=== PATIENT | male | born 1955 | race Caucasian/White ===

== ENCOUNTER → 2017-09-01 11:23 | Outpatient (CLI) | payer BC, SELFPAY ==
--- NOTE | 2017-09-01 11:29 | RAD_ITS ---
STUDY: X-RAY - PELVIS AND BILATERAL HIPS REASON FOR EXAM: Male, 61 years old. BIRADS pain worse on the left side. TECHNIQUE: Radiological exam, hip, bilateral, with pelvis when performed; 3-4 views COMPARISON: None. FINDINGS: There is a non-specific bowel gas pattern. Normal visualized soft tissue structures. Normal bilateral iliac wings, sacroiliac joints and visualized sacrum. Normal bilateral superior and inferior pubic rami. There is narrowing with sclerosis of the pubic symphysis. Normal bilateral ischial tuberosities. Normal visualized right femoral head. There is osteoarthritic spur formation of the right acetabular rim. There is moderate articular joint space narrowing of the right hip. Normal visualized left femoral head. Normal left acetabulum. There is severe articular joint space narrowing of the left hip. I suspect bilateral femoral acetabular impingement. A transitional vertebra is seen at the L5-S1 level. RAD/Hips B/L min 2 views w/ Pelvis IMPRESSION: Degenerative changes of both hip joints worse on the left side. I suspect bilateral femoral acetabular impingement. Electronically Signed: Sami Bess MD at 13:23 EST Tel [phone], Service support ,
== END ==
PROVIDERS: Family Provider Family Medicine; PCP Family Medicine; Visit Provider Family Medicine
DX: M25.551 Pain in right hip (principal); M25.552 Pain in left hip
CPT/HCPCS: 73521

== ENCOUNTER → 2017-11-02 17:57 | Outpatient (CLI) | payer BC, SELFPAY ==
[2017-11-02 20:25] LABS: Neisserai gonorrhoeae by PCR Positive (Negative); Probe Check PASS
[2017-11-03 11:11] LABS: Chlamydia Trachomatis by PCR POSITIVE (Negative)
== END ==
PROVIDERS: Visit Provider Family Medicine
DX: N39.0 Urinary tract infection, site not specified (principal)
CPT/HCPCS: 87086; 87491; 87591

== ENCOUNTER → 2018-03-08 12:14 | Outpatient (CLI) | payer OTHER, SELFPAY ==
[2018-03-08 14:18] LABS: Absolute Neutrophil Count 5.7 X10^3/uL (2.0-7.7); Basophil# 0.04 X10^3/uL; Basophil% 0.5 % (0-1); Eosinophil# 0.17 X10^3/uL; Hematocrit 44.6 % (40-54); Hemoglobin 14.8 g/dl (13.0-16.5); Mean Corp Hgb Conc 33.2 g/gl (32-36); Mean Corpuscular Hgb 31.6 pg (27.0-32.0); Mean Corpuscular Volume 95.3 fL (80-94); Mean Platelet Vol. 9.4 fl (6.2-12.0); Monocyte# 0.86 X10^3/uL; Monocyte% 10.2 % (0-10); Neutrophil # 5.71 X10^3/uL (2.7-7.7); Neutrophil % 68.1 % (47-70); POSITIVE COUNT NO; POSITIVE DIFFERENTIAL NO; POSITIVE MORPHOLOGY NO; Platelet Count 376 K/mm3 (150-450); RBC Distribution Width CV 13.1 % (11.6-14.6); RBC Distribution Width SD 45.3 fl (35.1-43.9); Red Blood Count 4.68 M/mm3 (4.6-6.2); White Blood Count 8.4 K/mm3 (4.4-11.0)
[2018-03-08 14:35] LABS: AST(SGOT) 23 U/L (15-37); Alanine Aminotransfer ALT/SGPT 28 U/L (16-61); Albumin, Serum 3.6 g/dL (3.2-5.0); Alkaline Phosphatase 72 U/L (45-117); Bilirubin, Direct 0.25 mg/dL (0.00-0.30); Globulin 4.3 g/dL (2.2-4.2); Protein, Total 7.9 g/dL (6.4-8.2)
[2018-03-18 16:07] LABS: QNTFERON TB Ag Minus Nil Value < 0 IU/mL (.); QNTFERON TB Ag Value 0.04 IU/mL (.); QNTFERON TB Mitogen Value > 10.00 IU/mL (.); QNTFERON TB Nil Value 0.07 IU/mL (.)
[2018-03-20 11:17] LABS: QNTIFERON TB Gold Negative (Negative)
== END ==
PROVIDERS: Family Provider Family Medicine; PCP Family Medicine; Visit Provider Dermatology
DX: L85.3 Xerosis cutis (principal); L40.9 Psoriasis, unspecified; Z79.899 Other long term (current) drug therapy
CPT/HCPCS: 36415; 80076; 85025; 86480

== ENCOUNTER → 2018-05-22 16:04 | Outpatient (CLI) | payer OTHER, SELFPAY ==
[2018-05-22 18:21] LABS: ALB/GLOB Ratio 0.8 RATIO (0.9-2.4); AST(SGOT) 22 U/L (15-37); Alanine Aminotransfer ALT/SGPT 27 U/L (16-61); Albumin, Serum 3.6 g/dL (3.2-5.0); Alkaline Phosphatase 82 U/L (45-117); Anion Gap 8 (5-15); BUN 7 mg/dL (7-18); BUN/Creat Ratio 7.3 RATIO (10-20); Calcium,Total 8.6 mg/dL (8.5-10.1); Chloride 93 mmol/L (98-107); Creatinine, Serum 0.96 mg/dL (0.70-1.30); EST Glomerular Filtration Rate 84 mL/min (>60); Est Glom Filt Rate - Afr Amer 101 mL/min (>60); Globulin 4.4 g/dL (2.2-4.2); Glucose 88 mg/dL (74-106); PSA,Total - Annual Screen 2.17 ng/mL (0.00-4.00); Potassium 4.6 mmol/L (3.5-5.1); Sodium Level 128 mmol/L (136-145)
== END ==
PROVIDERS: Nurse Practitioner Family; Family Provider Family Medicine; PCP Family Medicine; Visit Provider Family Medicine
DX: Z00.00 Encounter for general adult medical examination without abnormal findings (principal); E03.9 Hypothyroidism, unspecified
CPT/HCPCS: 36415; 80053; 84153; 84443; G0103

== ENCOUNTER 2018-08-30 06:56 | Inpatient (IN) | payer OTHER, MEDICARE, SELFPAY ==
--- NOTE | 2018-08-18 17:12 | PCM.HP.BLA ---
History and Physical DATE OF SURGERY: 08/30/2018 SCHEDULED PROCEDURE: HISTORY OF PRESENT ILLNESS: This is a 62-year-old male who is been having ongoing pain for the past 6 months but his left hip. Patient states his pain has been sharp. He does have start up pain. He has increased pain walking, going up and down stairs, and sitting for extended periods time. He states he has difficult time with activities of daily living including getting dressed, doing housework, shopping. Pain does wake him at night. Patient does complain of left groin pain as well as into the lateral hip. Patient has been using [id number] Tylenol as well as nabumetone. He has also been on tramadol with temporary relief. Patient has tried rest, ice, elevation with no significant relief in symptoms. He has tried home exercises with minimal relief. Patient denies previous surgery on the left hip. Patient has had previous bilateral knee arthroscopies in the past. After failing conservative measures of discussing all treatment options with Dr. Remigio Castillo, the patient does wish to proceed with a left total hip arthroplasty. We are obtaining surgical clearance from patient's primary care physician. Patient currently denies any chest pain, shortness of breath, fevers chills, or recent infections. REVIEW OF SYSTEMS: ROS: Const: Denies change in appetite, fever,or weight change. CV: Denies chest pain, heart murmur and irregular heartbeat. Resp: Denies cough, pneumonia, SOB, tuberculosis and wheezing. GI: Denies constipation, diarrhea, difficulty swallowing, heartburn, nausea, bloody stools and vomiting. : Urinary: denies incontinence. Musculo: Reports leg swelling, limp and trouble walking, but denies weakness. Skin: Reports tattoo, but denies Raynaud's and history of shingles. Neuro: Reports numbness/tingling but denies ambulatory dysfunction, dizziness and tremor. Psych: Denies anxiety, insomnia and stress. Emanuel/Lymph: Denies anemia, bleeding/bruising tendency and past transfusion. Reviewed, no changes. PAST MEDICAL HISTORY: Advance Care Plan: Other Directive, LIVING WILL Effective Date: 09/26/2017 PMH: Medical Problems: Arthritis, Psoriasis Accidents: None Surgical Hx: Gallbladder - (1995) RODRIGUEZ Knee Arthroscopy - (1991) Anesthesia Complications: None Assistive Devices: None Reviewed, no changes. 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 Personal Habits: Cigarette Use: Former.Alcohol: Occasionally.Drug Use: Denies Use.Enjoy Exercising: Exercises 1-3 X/Week. Reviewed, no changes. VITALS: Ht: 77.5 Wt: 226lb 4oz Wt k.627 BMI: 26.5 BP: 142/86 Pulse: 76 Resp: 18 T: 97.1 T: 36.2C ALLERGIES: No Known Drug Allergy MEDICATIONS: Tramadol HCL 50 mg 1-2 by mouth every 6 hours as needed pain, Nabumetone 750 mg 1 by mouth twice a day PRE-OP EXAM: General appearance:NORMAL Other: Eyes: Conjunctivae and lids: NORMAL Pupils: ERR Ears, Nose, Mouth, and Throat: NORMAL Other: Inspection of lips, teeth and gums: NORMAL Other: Neck: Examination of neck: no masses noted. Respiratory: Assessment of respiratory effort: NORMAL Other: Auscultation of lungs: clear to auscultation no wheezes, rhonchi or rales. Cardiovascular: Auscultation of heart: regular rate and rhythm, no murmurs, gallops or rubs. Exam of carotid arteries: NORMAL Other: Gastrointestinal: Exam of abdomen: soft, nontender, nondistended bowel sounds present. PHYSICAL EXAMINATION: Patient does walk with an antalgic gait. Patient does complain of left groin pain with range of motion. Left hip range of motion: Flexion 100, internal rotation 5, external rotation 20. Sensation intact to light touch. Neurovascularly intact. IMAGING STUDIES: X-rays of the left hip were obtained which does reveal joint space narrowing, subchondral sclerosis, osteophyte formation consistent with severe osteoarthritis. Right hip also reveals joint space narrowing with subchondral sclerosis and osteophyte formation consistent with severe osteoarthritis and associated acetabular rim fracture. IMPRESSION: 1. Left hip severe osteoarthritis 2. Right hip severe osteoarthritis 3. Psoriasis PLAN: Dr. Remigio Castillo did discuss and review with the patient all treatment options including surgical versus nonsurgical options. Patient does wish to proceed with the above-stated procedure. Potential risks, benefits, and complications of the procedure were discussed in detail including but not limited to , infection, nerve and blood vessel damage, persistent pain, numbness, tingling, paresthesias, blood clot, pulmonary embolism, and requirement for possible further surgery. The patient expressed full understanding and has no further questions for the doctor. Patient does agree to proceed with the above-stated procedure and has signed the surgery consent form. This dictation was created using voice recognition software. Phonetic and/or grammatical errors may exist.. ___ I have re-examined the patient. There are no clinical changes since date of exam. ___ See progress notes for changes. ___ Dictated on admission Date: Time: Signature:
--- NOTE | 2018-08-23 16:16 | EKG12_ITS ---
Test Reason : PRE-OP Blood Pressure : / mmHG Vent. Rate : 075 BPM Atrial Rate : 075 BPM P-R Int : 180 ms QRS Dur : 092 ms QT Int : 396 ms P-R-T Axes : 081 022 049 degrees QTc Int : 442 ms Normal sinus rhythm Normal ECG Confirmed by DENAE RAMOS, ELENI ([id number]), purchase request editor ARYA ALBARRAN ([id number]) on 08/28/2018 9:41:20 AM Referred By: Remigio Castillo Confirmed By:ELENI PHILIPPE MD
[2018-08-23 16:51] LABS: Absolute Lymphocyte Count 1.54 X10^3/ul (0.83-4.51); Basophil# 0.03 X10^3/uL; Basophil% 0.4 % (0-1); Eosinophil# 0.08 X10^3/uL; Eosinophils% 0.9 % (0-5); Hematocrit 46.6 % (40-54); Hemoglobin 15.9 g/dl (13.0-16.5); Lymphocyte # 1.54 X10^3/ul (4.0); Lymphocyte % 18.3 % (19-41); Mean Corp Hgb Conc 34.1 g/gl (32-36); Mean Corpuscular Hgb 31.4 pg (27.0-32.0); Mean Corpuscular Volume 92.1 fL (80-94); Mean Platelet Vol. 8.9 fl (6.2-12.0); Monocyte# 0.74 X10^3/uL; Monocyte% 8.8 % (0-10); Neutrophil % 71.1 % (47-70); Platelet Count 401 K/mm3 (150-450); RBC Distribution Width CV 12.9 % (11.6-14.6); Red Blood Count 5.06 M/mm3 (4.6-6.2); White Blood Count 8.4 K/mm3 (4.4-11.0)
[2018-08-23 16:56] LABS: POSITIVE COUNT NO; POSITIVE DIFFERENTIAL NO; POSITIVE MORPHOLOGY NO
[2018-08-23 17:14] LABS: Anion Gap 8 (5-15); BUN 4 mg/dL (7-18); Calcium,Total 8.7 mg/dL (8.5-10.1); Chloride 96 mmol/L (98-107); Creatinine, Serum 1.01 mg/dL (0.70-1.30); EST Glomerular Filtration Rate 79 mL/min (>60); Est Glom Filt Rate - Afr Amer 95 mL/min (>60); Glucose 102 mg/dL (74-106); Potassium 4.2 mmol/L (3.5-5.1); Sodium Level 128 mmol/L (136-145); Thyroid Stim Hormone (TSH) 8.96 uIU/mL (0.358-3.74)
[2018-08-29 16:00] LABS: Anion Gap 7 (5-15); BUN 4 mg/dL (7-18); BUN/Creat Ratio 4.2 RATIO (10-20); Calcium,Total 8.4 mg/dL (8.5-10.1); Chloride 98 mmol/L (98-107); Creatinine, Serum 0.95 mg/dL (0.70-1.30); EST Glomerular Filtration Rate 84 mL/min (>60); Est Glom Filt Rate - Afr Amer 102 mL/min (>60); Glucose 112 mg/dL (74-106); Potassium 4.3 mmol/L (3.5-5.1); Sodium Level 132 mmol/L (136-145)
[2018-08-30] VITALS (16 sets, daily range): BP systolic 91–126; BP diastolic 56–80; PULSE 67–95; RESP 16–18; TEMP 36.4–36.8; O2SAT 89–100; BMI 26.2; BMI 26.6
[2018-08-30] MEDS: Acetaminophen 500 MG Tablet 1000 MG PO ×3 (07:48→21:39)
[2018-08-30] MEDS: Celecoxib 200 MG Capsule 400 MG PO (07:48)
[2018-08-30] MEDS: oxyCODONE HCl Cr 10 MG Tablet PO (07:48)
[2018-08-30] MEDS: Lactated Ringers 1,000 ML 999 ML IV ×2 (07:52→12:40)
--- NOTE | 2018-08-30 08:59 | RAD_ITS ---
STUDY: X-RAY - LEFT HIP REASON FOR EXAM: Male, 62 years old. Postop left hip. TECHNIQUE: 2 views of the hip. COMPARISON: AP pelvis and 2 additional views of each hip September 01, 2017. Intraoperative fluoroscopic spot views of the left hip 1014 hours. FINDINGS: Degenerative changes again seen at the right hip and pubic symphysis. There is borderline degenerative narrowing of the inferior left sacroiliac joint. Again seen are changes of left total hip arthroplasty. Following resection of the femoral head and neck, a metal bipolar hip prosthesis was placed. The acetabular and femoral components appear well seated, and in anatomic alignment. A few gas lucencies in the overlying soft tissues are consistent with recent surgery. There is no demonstrated acute fracture Normal visualized superior and inferior pubic rami and ischial tuberosities. RAD/Hip Min 2 Views (Portable) IMPRESSION: Status post left total hip arthroplasty. Electronically Signed: Khanh Choe MD at 13:33 EST , Service support ,
--- NOTE | 2018-08-30 09:00 | RAD_ITS ---
STUDY: X-RAY - LEFT HIP REASON FOR EXAM: Male, 62 years old. Left anterior hip replacement. TECHNIQUE: 2 views of the hip. COMPARISON: None. FINDINGS: Intraoperative imaging provided for left anterior hip replacement. There is good alignment. RAD/Hip 1 view with Pelvis IMPRESSION: Intraoperative imaging provided for left hip replacement. There is good alignment. Electronically Signed: Sami Bess MD at 14:12 EST , Service support ,
[2018-08-30] MEDS: Cefazolin 2 GM in 0.9% Normal Saline 100 ML IV (09:20)
--- NOTE | 2018-08-30 10:36 | PCM.OPRPT ---
Report of Operation Date of Procedure: 08/30/18 Pre-Operative Diagnosis: Left hip primary osteoarthritis Post-Operative Diagnosis: Left hip primary osteoarthritis Surgery/Procedure Performed:: Left direct anterior total hip replacement Description of Surgical Findings:: sTable hip with equal leg lengths assembler latches and springs: Domonique Lentz Type of Anesthesia:: General Anesthesiologist: Michael Clinton Special Medications: 2 g Ancef, 1 g TXA at incision, 1 g TXA closure, 10 mg Decadron, joint cocktail (5 mg Duramorph, 30 mL of 0.5% Ropivicaine, 1000 units of epinephrine, 30 mg of Toradol), IV vancomycin. Estimated Blood Loss (mL): 200 Fluids Replaced: 1800 mL crystalloid Description of Procedure: Components used: 1. Accolade 2 [place] femoral stem size 9 127? 2. [place] trident 2 acetabular shell size 62 mm 3. [place] X3 polyethylene G 4. [place] Biolox delta 36mm, 0mm femoral head Brief history operative indications: 62 yo M who failed conservative measures for their hip osteoarthritis. X-rays were consistent with osteoarthritis including joint space narrowing, osteophyte formation and subchondral cysts. Total hip replacement was discussed with the patient with risks and benefits including but not limited to blood loss, DVTs, PEs, neurovascular damage, dislocation, general risks of anesthesia including loss of life. Patient demonstrated an understanding medical clearance is obtained the patient was consented for surgery. Procedure: On the date of procedure the patient's L hip was marked in the preoperative area. Patient was then taken back to the operating room where anesthesia assumed control of the C-spine and airway and administered anesthetic. Patient was transferred to the operating table and placed in the supine position. The hips were placed at the break of the bed and a sacral bump was placed. The L lower extremity was then prepped out in a sterile fashion using chlorhexidine while the surgeon scrubbed. The PA was vital in the positioning of the patient. Upon reentering the room the L lower extremity was draped in the standard orthopedic fashion and the incision was marked. A timeout was called and everyone agreed upon the side, the site, the procedure be performed, antibody given, and patient's identity. At this time incision was made through skin, subcutaneous tissue, and fat down to fascia. The fascia was then incised and the TFL was retracted laterally. A retractor was placed on the lateral border of the femoral neck. Attention was directed to the inferior portion of the approach and all crossing vessels were identified and appropriately coagulated. A retractor was then placed on the medial portion of the femoral neck. The anterior capsule was then cleared of all soft tissue and then H shaped capsulotomy was made. The retractors were then placed inside the capsule. The femoral neck was identified and a cleanup cut was made. At this time a power corkscrew was used to remove the femoral head. Attention was then turned toward the acetabulum where the soft tissues were appropriately retracted and the acetabulum was sequentially reamed to 62 mm. A 62 mm cup was then selected and impacted into place. Acetabular liner was impacted into place and locking mechanism was verified. The position of the acetabular cup was then verified under live fluoroscopy. Attention was then turned to the femur. Soft tissue releases on the medial and lateral femoral neck were appropriately done, the leg was externally rotated and lateralized. A Good retractor was placed medially and proximally to the greater trochanter this allowed appropriate visualization and exposure of the femoral canal. Rongeour was then used to remove excess lateral bone. A canal finder and entry broach were used to open the proximal canal. Once we verified we were down the femoral canal we subsequently broached up to a size 9 femur. The appropriate neck was placed in the previously selected head was trialed with a 0 mm neck. Traction was pulled and the hip was reduced with internal rotation. Once it was appropriately reduced and stability was checked. There was minimal shuck, equal leg lengths and appropriate stability with hyperextension and external rotation as well as with 90? flexion and internal rotation. Fluoroscopy was then also used to verify the position of the components and leg lengths using the contralateral side for comparison. The trial components were then dislocated the proximal femur was again exposed and the components were removed from the wound. The final components were verified and opened. The wound was copiously irrigated out with normal saline. The acetabulum was checked for any residual debris. The final components were placed and impacted. Traction and internal rotation were again used to reduce the hip. After adequate reduction the hip remained stable with appropriate leg lengths. The final components were once again checked with live fluoroscopy and were found to be satisfactory. The wound was then copiously irrigated with normal saline once more, and hemostasis was obtained. Closure was then done using #1 Vicryl runner to close the fascia. A 2-0 vicryl interuppted sutures were used to close the subcutaneous skin. A 3-0 Monocryl and Steri-Strips were used for final skin closure. A Silverlon dressing was placed. Patient was awakened by anesthesia and transferred to the [facility]. Patient was then transferred to the PACU for recovery. Postoperative plan: Patient will get 24 hours postop antibiotics. Patient will get in-house physical therapy and will be weight-bear as tolerated. Patient will follow up in office in 2 weeks for a wound check and x-rays. Grafts/Implants Used: Brandon Accolade 2, Trident 2 - Complications No intraoperative complications - Admit VTE Documentation VTE Present on Admission: No VTE Mechan Device Prophylaxis: SCD's, Thigh High OMID Hose VTE Pharm Prophylaxis ordered?: Yes
[2018-08-30] MEDS: Lactated Ringers 1,000 ML 125 ML IV ×2 (12:44→20:31)
[2018-08-30] MEDS: Scopolamine 1mg/72hr Patch 1 PATCH TD (12:44)
[2018-08-30] MEDS: Senna/Docusate Sodium 1 Tablet 2 TABLET PO ×2 (13:54→21:40)
[2018-08-30] MEDS: Famotidine 20 MG Tablet PO (13:54)
[2018-08-30] MEDS: Cefazolin 1 GM/50 ML BAG IV (17:04)
[2018-08-30] MEDS: Aspirin 81 MG TAB.CHEW PO (17:05)
[2018-08-30] MEDS: oxyCODONE 5 MG Tablet PO (20:45)
[2018-08-31] MEDS: Cefazolin 1 GM/50 ML BAG IV (00:51)
[2018-08-31 01:36] VITALS: BP 107/62; PULSE 66
[2018-08-31] MEDS: oxyCODONE 5 MG Tablet PO ×3 (01:42→10:49)
[2018-08-31 02:52] VITALS: BP 104/64; PULSE 79; RESP 16; TEMP 36.6; O2SAT 97
[2018-08-31] MEDS: Acetaminophen 500 MG Tablet 1000 MG PO ×2 (05:02→13:36)
[2018-08-31] MEDS: Levothyroxine 100 MCG Tablet 200 MCG PO (05:02)
[2018-08-31 06:38] LABS: Hematocrit 37.1 % (40-54); Hemoglobin 12.3 g/dl (13.0-16.5); Mean Corp Hgb Conc 33.2 g/gl (32-36); Mean Corpuscular Hgb 32.2 pg (27.0-32.0); Mean Corpuscular Volume 97.1 fL (80-94); Mean Platelet Vol. 8.8 fl (6.2-12.0); Platelet Count 278 K/mm3 (150-450); RBC Distribution Width CV 13.2 % (11.6-14.6); RBC Distribution Width SD 45.3 fl (35.1-43.9); Red Blood Count 3.82 M/mm3 (4.6-6.2); Scan Indicated on CBC? Y/N NO; White Blood Count 7.4 K/mm3 (4.4-11.0)
[2018-08-31 06:43] LABS: Anion Gap 6 (5-15); BUN 5 mg/dL (7-18); BUN/Creat Ratio 5.4 RATIO (10-20); Calcium,Total 7.8 mg/dL (8.5-10.1); Chloride 102 mmol/L (98-107); Creatinine, Serum 0.93 mg/dL (0.70-1.30); EST Glomerular Filtration Rate 87 mL/min (>60); Est Glom Filt Rate - Afr Amer 105 mL/min (>60); Estimated Creatinine Clearance 101.13 ml/min; Glucose 99 mg/dL (74-106); Potassium 4.3 mmol/L (3.5-5.1); Sodium Level 135 mmol/L (136-145)
[2018-08-31 07:36] VITALS: O2SAT 94
[2018-08-31 09:02] VITALS: BP 101/60; PULSE 77; RESP 20; TEMP 37.1; O2SAT 96
[2018-08-31 09:05] VITALS: PULSE 76
--- NOTE | 2018-08-31 09:08 | PN.ORTHO_ITS ---
Subjective: The patient was sitting in bedside chair upon examination. Patient denies any chest pain, shortness of breath, dizziness, lightheadedness, nausea or vomiting, or calf pain. Pain is controlled on medications. No adverse overnight events. Overall patient is doing very well. Patient does wish to go home today. Objective: Vital signs stable and afebrile. Patient is able to plantarflex and dorsiflex actively. Sensation is intact to light touch to saphenous, sural, superficial and deep peroneal, and tibial distribution. Dressing is clean dry and intact. Negative Homans bilaterally, negative signs and symptoms of DVT. - Physical Exam General: Alert, Oriented x3, Cooperative, No apparent distress Vital Signs Temp Pulse Resp BP Pulse Ox 98.8 F 77 20 H 101/60 96 08/31/18 09:02 08/31/18 09:02 08/31/18 09:02 08/31/18 09:02 08/31/18 09:02 Oxygen Flow Rate (L/min) 2 Oxygen Delivery Method Room Air Weight: 103 kg Body Mass Index (BMI) 26.6 Intake and Output for Last 24 Hours 08/29/18 08/30/18 08/31/18 23:59 23:59 23:59 Intake Total 3000 / 3000 1900 / 1900 Output Total 300 / 300 Balance 3000 / 3000 1600 / 1600 Laboratory Tests Past 24 Hrs 08/31/18 08/31/18 06:06 06:06 WBC 7.4 RBC 3.82 L Hgb 12.3 L Hct 37.1 L MCV 97.1 H MCH 32.2 H MCHC 33.2 RDW 13.2 RDW Differential 45.3 H Plt Count 278 MPV 8.8 Sodium 135 L Potassium 4.3 Chloride 102 Carbon Dioxide 27.0 Anion Gap 6 BUN 5 L Creatinine 0.93 Estim Creat Clear Calc 101.13 Est GFR (MDRD) Af Amer 105 Est GFR (MDRD) Non-Af 87 BUN/Creatinine Ratio 5.4 L Glucose 99 Calcium 7.8 L Medical Necessity - Tobacco Use Smoking Status: Current some day smoker Tobacco Use: Cigars Assessment/Plan 1. S/P left direct anterior total hip arthroplasty POD #1 2. Continue Pain Medications: Tylenol and OxyIR 3. DVT Prophylaxis: Aspirin 81 mg twice daily for for 4 weeks postoperatively 4. PT/OT: Weightbearing as tolerated 5. H & H: 12.3/37.1, asymptomatic 6. Encouraged Incentive Spirometry 7. Disposition: Orthopedically stable, plan will be for discharge home today. Prescriptions will be E scribed to [facility]. Patient will follow-up per postop instructions. Patient will get home health physical therapy 2 weeks postoperatively.
[2018-08-31] MEDS: Multivitamins,Therapeutic Tablet 1 TABLET PO (09:09)
[2018-08-31] MEDS: Meloxicam 7.5 MG Tablet PO (09:09)
[2018-08-31] MEDS: Famotidine 20 MG Tablet PO (09:09)
[2018-08-31] MEDS: Aspirin 81 MG TAB.CHEW PO (09:09)
[2018-08-31] MEDS: Senna/Docusate Sodium 1 Tablet 2 TABLET PO (09:09)
--- NOTE | 2018-08-31 09:14 | PCM.DC.THR ---
Discharge Diet: No Restrictions Discharge Activity: May Not Drive - while taking narcotic pain medications. May shower in (days): 1 - Turned dressing away from water Ice area for (Minutes): 20 - Every 1-2 hours while awake Weight Bearing Status: Weight bearing as tolerated Elevate: Operative Extremity Additional Activity Instructions:: Wear elastic stockings for 2 weeks. DO NOT use alcohol with narcotic pain medication. DO NOT make important decisions while taking narcotic medication. If you have problems with taking your medication (rash, itching, nausea, etc.) call the office at once. Call your doctor if your incision/area has: Increased Pain/ Swelling, Increased Redness, Foul Smelling Discharge Call your doctor if you observe: Fever of 101 or Higher Remove Dressing in (days):: 4 - Okay to remove dressing on September 04, 2018 Additional Instructions: Follow [facility] postop instructions Allergies/Adverse Reactions: Allergies codeine Adverse Reaction (Intermediate, Verified 08/21/18 12:57) Upset Stomach Medications to take at Discharge Levothyroxine Sodium [Synthroid] 200 mcg PO DAILY 03/10/16 Multivitamin [Multiple Vitamins] 1 each PO DAILY 08/21/18 Acetaminophen [Tylenol] 1,000 mg PO Q8 #90 tablet 08/31/18 Aspirin [Aspirin, Baby] 81 mg PO BIDCM #60 tab.chew 08/31/18 Famotidine [Pepcid] 20 mg PO DAILY #30 tablet 08/31/18 Meloxicam [Mobic] 7.5 mg PO BID #60 tablet 08/31/18 Oxycodone [Oxyir] 5 - 10 mg PO Q4H PRN PRN 4 Days #45 tablet 08/31/18 Senna/Docusate Sodium [Senokot-S] 2 tablet PO BID #20 tablet 08/31/18 The following prescriptions were given: Oxycodone [Oxyir] 5 - 10 mg PO Q4H PRN PRN 4 Days #45 tablet PRN Reason: Mod-Severe Pain (4-04/26) Acetaminophen [Tylenol] 1,000 mg PO Q8 #90 tablet Famotidine [Pepcid] 20 mg PO DAILY #30 tablet Aspirin [Aspirin, Baby] 81 mg PO BIDCM #60 tab.chew Meloxicam [Mobic] 7.5 mg PO BID #60 tablet Senna/Docusate Sodium [Senokot-S] 2 tablet PO BID #20 tablet Orders to be completed after discharge: Thyroid Stim Hormone (TSH) Time Frame: 08/21/18, Location: Laboratory Primary Care Physician: Hebert Whaley MD [Primary Care Provider] - Test Results: Test results from this visit will be discussed in further detail at your follow-up appointment, if applicable. Please Follow Up With: Abisai Barclay PA-C When: 09/13/18 @ 9:30 am
--- NOTE | 2018-08-31 10:25 | CASEMGMT ---
RN CM Face to Face with patient for initial transition planning/care coordination assessment. RN CM introduced self and role at [facility]. Patient sitting in chair, alert and oriented. Patient willing to participate in assessment and is able to answer all questions appropriately. Care providers, pharmacy, and demographics verified. Patient wishes to discharge home with [facility]. Patient has shower chair and raised toilet seat, but will need a walker. Patient agreeable to Das[facility] and script received for walker and sent to [facility] and arranged to be delivered to hospital prior to discharge. Referral sent to [facility] and they are able to accept the patient. Patient states he has no further needs or concerns at this time. CM to follow for discharge planning needs that may arise. Disposition Plan: Patient to discharge with [facility], family support, and follow-up plans in place. Melissa SOUZA, RN, CM
[2018-08-31 13:56] VITALS: BP 115/68; PULSE 89; RESP 16; TEMP 36.8; O2SAT 96
== END 2018-08-31 14:11 | disposition home health service (06) | DRG 470 ==
LOC: ACINP 07:25 → MS3 07:37
PROVIDERS: Admitting Provider Specialist; Family Provider Family Medicine; PCP Family Medicine; Referring Provider Specialist; Visit Provider Specialist
PROC: 0SRB04A Replacement of Left Hip Joint with Ceramic on Polyethylene Synthetic Substitute, Uncemented, Open Approach (ICD-10-PCS; CPT 27284; principal; 2018-08-30 08:35)
DX: M16.0 Bilateral primary osteoarthritis of hip (principal); L40.9 Psoriasis, unspecified
CPT/HCPCS: 36415; 73501; 73502; 76000; 80048; 84443; 85025; 85027; 87077; 87081; 93005; 94762; 97110; 97162; 97166; 97530; 97535; 99251; 99406; C1776; J7040; J7120; G0463; J2405

== ENCOUNTER → 2019-02-06 09:13 | Outpatient (CLI) | payer MEDICARE, OTHER, SELFPAY ==
[2018-08-30 13:17] VITALS: BMI 26.6
[2019-02-06 13:06] LABS: ALB/GLOB Ratio 0.8 RATIO (0.9-2.4); AST(SGOT) 83 U/L (15-37); Alanine Aminotransfer ALT/SGPT 121 U/L (16-61); Albumin, Serum 2.7 g/dL (3.2-5.0); Alkaline Phosphatase 111 U/L (45-117); Anion Gap 5 (5-15); BUN 5 mg/dL (7-18); BUN/Creat Ratio 5.9 RATIO (10-20); Calcium,Total 8.8 mg/dL (8.5-10.1); Chloride 102 mmol/L (98-107); Cholesterol 133 mg/dL (200); Creatinine, Serum 0.84 mg/dL (0.70-1.30); EST Glomerular Filtration Rate 97 mL/min (>60); Est Glom Filt Rate - Afr Amer 118 mL/min (>60); Globulin 3.6 g/dL (2.2-4.2); Glucose 77 mg/dL (74-106); High Density Lipoprotein 66 mg/dL; Potassium 4.5 mmol/L (3.5-5.1); Protein, Total 6.3 g/dL (6.4-8.2); Sodium Level 134 mmol/L (136-145); Thyroid Stim Hormone (TSH) 3.15 uIU/mL (0.358-3.74); Triglycerides 60 mg/dL; Very Low Density Lipoprotein 12 mg/dL (5-40)
[2019-02-06 13:31] LABS: Vitamin D,25 Hydroxy 23.7 ng/mL (29.95-100.01)
== END ==
PROVIDERS: Family Provider Family Medicine; PCP Family Medicine; Referring Provider Family Medicine; Visit Provider Family Medicine
DX: R53.83 Other fatigue (principal); E87.1 Hypo-osmolality and hyponatremia; E03.9 Hypothyroidism, unspecified; Z13.220 Encounter for screening for lipoid disorders
CPT/HCPCS: 36415; 80053; 80061; 82306; 84403; 84443

== ENCOUNTER → 2019-04-03 09:39 | Outpatient (CLI) | payer MEDICARE, OTHER, SELFPAY ==
[2018-08-30 13:17] VITALS: BMI 26.6
[2019-04-03 12:22] LABS: Erythrocyte Sedimentation Rate 4 mm/hr (0-20)
[2019-04-03 12:24] LABS: Absolute Lymphocyte Count 1.82 X10^3/uL (0.83-4.51); Absolute Neutrophil Count 3.3 X10^3/uL (2.0-7.7); Basophil# 0.06 X10^3/uL; Eosinophil# 0.27 X10^3/uL; Eosinophils% 4.3 % (0-5); Hematocrit 49.4 % (40-54); Lymphocyte # 1.82 X10^3/ul (4.0); Lymphocyte % 29.1 % (19-41); Mean Corp Hgb Conc 34.4 g/dL (32-36); Mean Corpuscular Hgb 34.1 pg (27.0-32.0); Mean Platelet Vol. 9.2 fl (6.2-12.0); Monocyte# 0.77 X10^3/uL; Monocyte% 12.3 % (0-10); NRBC Flagged by Analyzer 0 % (0-5); Neutrophil # 3.32 X10^3/uL (2.7-7.7); Platelet Count 332 K/mm3 (150-450); RBC Distribution Width CV 13.3 % (11.6-14.6); RBC Distribution Width SD 48.9 fl (35.1-43.9); Red Blood Count 4.99 M/mm3 (4.6-6.2); White Blood Count 6.3 K/mm3 (4.4-11.0)
[2019-04-03 12:47] LABS: Anion Gap 6 (5-15); BUN 4 mg/dL (7-18); BUN/Creat Ratio 4.2 RATIO (10-20); CRP < 2.90 mg/L (0.0-3.0); Calcium,Total 8.7 mg/dL (8.5-10.1); Chloride 100 mmol/L (98-107); Creatinine, Serum 0.95 mg/dL (0.70-1.30); EST Glomerular Filtration Rate 85 mL/min (>60); Est Glom Filt Rate - Afr Amer 103 mL/min (>60); Glucose 75 mg/dL (74-106); Potassium 3.9 mmol/L (3.5-5.1); Rheumatoid Factor < 10.0 IU/mL (<15); Sodium Level 136 mmol/L (136-145); Uric Acid 6.2 mg/dL (3.5-7.2)
[2019-04-04 15:53] LABS: ANTINUCLEAR ANTIBODIES DIRECT Negative (Negative)
== END ==
LOC: MFPLAB 09:39
PROVIDERS: Family Provider Family Medicine; PCP Family Medicine; Referring Provider Family Medicine; Visit Provider Orthopaedic Surgery
DX: M17.11 Unilateral primary osteoarthritis, right knee (principal)
CPT/HCPCS: 36415; 80048; 84550; 85025; 85652; 86038; 86140; 86431

== ENCOUNTER → 2019-12-05 10:43 | Outpatient (CLI) | payer MEDICARE, OTHER, SELFPAY ==
[2018-08-30 13:17] VITALS: BMI 26.6
[2019-12-05 13:03] LABS: ALB/GLOB Ratio 0.7 RATIO (0.9-2.4); AST(SGOT) 132 U/L (15-37); Alanine Aminotransfer ALT/SGPT 100 U/L (16-61); Albumin, Serum 3.2 g/dL (3.2-5.0); Alkaline Phosphatase 77 U/L (45-117); Anion Gap 9 (5-15); BUN 6 mg/dL (7-18); BUN/Creat Ratio 7.1 RATIO (10-20); Calcium,Total 8.6 mg/dL (8.5-10.1); Chloride 99 mmol/L (98-107); Creatinine, Serum 0.85 mg/dL (0.70-1.30); EST Glomerular Filtration Rate 96 mL/min (>60); Est Glom Filt Rate - Afr Amer 116 mL/min (>60); Globulin 4.3 g/dL (2.2-4.2); Glucose 88 mg/dL (74-106); Potassium 3.8 mmol/L (3.5-5.1); Protein, Total 7.5 g/dL (6.4-8.2); Sodium Level 135 mmol/L (136-145)
== END ==
PROVIDERS: PCP Family Medicine; Referring Provider Family Medicine; Visit Provider Family Medicine
DX: E03.9 Hypothyroidism, unspecified (principal); F10.10 Alcohol abuse, uncomplicated
CPT/HCPCS: 36415; 80053; 84443

== ENCOUNTER 2019-12-11 01:21 | Observation (INO) | payer MEDICARE, OTHER, SELFPAY ==
[2018-08-30 13:17] VITALS: BMI 26.6
[2019-12-11] VITALS (15 sets, daily range): BP systolic 118–141; BP diastolic 47–88; PULSE 12–95; RESP 15–62; TEMP 36.4–37.4; O2SAT 94–99; BMI 23.6; BMI 22.9
--- NOTE | 2019-12-11 01:33 | EKG12_ITS ---
Test Reason : DYSRHYTHMIA Blood Pressure : / mmHG Vent. Rate : 073 BPM Atrial Rate : 073 BPM P-R Int : 178 ms QRS Dur : 088 ms QT Int : 410 ms P-R-T Axes : 084 -05 057 degrees QTc Int : 451 ms Normal sinus rhythm Normal ECG Confirmed by TABBY RAMOS, LAURA ([id number]), film and video editor ARYA ALBARRAN ([id number]) on 12/13/2019 2:37:14 PM Referred By: BB Confirmed By:LAURA MCNAIR MD
--- NOTE | 2019-12-11 01:36 | ED.VIS.DYS ---
History of Present Illness Chief Complaint: Shortness of Breath Detail of Chief Complaint: SOB, syncope Informant: Patient Onset: Weeks - several Activity at onset: Exertion Timing: Continuous Quality: Dyspnea on exertion, Wheezing Current Severity: Mild Maximum Severity: Severe Worsened by: Exertion Relieved by: Rest Associated Symptoms: Cough - several days, mild, [employer]. Negative for: Chills, Ear pain, Fever, Rhinorrhea, Sore throat, Sweats Chest Pain: None Narrative: Patient states symptoms have been gradually worsening for the last couple weeks, started with feeling lightheaded and dyspnea with exertion. Progressed to standing up and passing out. He states this is happened numerous times. Sometimes he has near syncope and sits down, but he passes out from standing up fairly frequently in the last week. The last time occurred a couple hours ago. Afterwards he was very shaky and family convinced him to come to the emergency department, it is 1:30 AM. He denies any new symptoms now. Denies any chest discomfort, leg pain, swelling. He traveled here from [place] 7 or 8 days ago. States symptoms started while he was down there. He was visiting his significant other and had been there for couple weeks. He saw his PCP about the symptoms last week, his thyroid medicine was increased and no other new prescriptions, patient states some tests were run but no chest x-ray. He denies any fevers. While in [place], he was sent an injection of his psoriasis medication that he had missed a dose of, so his psoriasis had become worse. When he got home, the shot did not seem to help as much as it usually does, so he saw his veterinary technology instructor and had a booster shot of something, now his psoriasis is getting better. He does not know what the booster shot was but thinks it was something different. He was having all of the symptoms prior to that. He denies a history of DVT or PE. He denies being in contact with anybody he knows of infected with coronavirus/COVID, he presents during the national coronavirus emergency. His significant other was a teacher, but not working during the state shutdown there, and was basically at home so he was they are keeping her company. She was not ill. - Past Medical History (1) Psoriasis Status: Chronic (2) Hypothyroidism Status: Chronic Past Medical History - Allergies and Home Meds Allergies/Adverse Reactions: Allergies codeine Adverse Reaction (Intermediate, Verified 12/11/19 01:30) Upset Stomach Primary Care Physician: Hebert Whaley MD [Primary Care Provider] - 1-2 Days if not improving Lives: Alone Smoking Status: Never smoker Review of Systems General: Reports: Malaise. Denies: Chills, Fever, Sweats Eyes: Denies: Visual changes - bilaterally, Diplopia ENT: Denies: Bilateral ear pain, Rhinorrhea, Sore throat Cardiovascular: Reports: Heart racing - when dyspneic only. Denies: Chest pain, Palpitations Respiratory: Reports: Dyspnea, Cough, Dyspnea on exertion. Denies: Sputum, Orthopnea Gastrointestinal: Denies: Abdominal pain, Nausea, Vomiting, Diarrhea, Melena, Hematochezia Genitourinary: Denies: Dysuria, Hematuria, Frequency Musculoskeletal: Denies: Back pain, Swelling, Extremity Pain Skin: Denies: Rash, Wounds Neurological: Denies: Headache, Weakness, Numbness Physical Exam Vital Signs/Narrative: Vital Signs Temp Pulse Resp BP Pulse Ox 12/11/19 01:26 99.3 F H 85 15 133/85 H 97 Inital Vital Signs reviewed: Yes General: Well nourished, Well developed, No Acute Distress - conversive in full sentences Head: Normocephalic, Atraumatic Eyes: Perrl, EOMI ENT: Moist mucous membranes, No rhinorrhea Neck: Supple, Nontender, No lymphadenopathy, No JVD Cardiovascular: Regular rate, Regular rhythm, No murmurs. Negative for: Tachycardia Respiratory: No distress, Chest nontender, Wheezing - expiratory throughout. Negative for: Rales, Rhonchi Abdomen: Soft, Nontender, Nondistended, Normal bowel sounds Back: Nontender, Normal Inspection Extremities: Nontender, No edema. Negative for: Calf Tenderness Skin: Normal color, No rash, No Trauma Neurological: Alert, Oriented x3, Cranial nerves II-XII grossly intact, Normal Strength, Normal Sensation Psychological: Normal affect, Normal Mood Diagnostic/Tx/Re-eval Clinical Impression(s) from Imaging Studies Chest CTA 12/11/19 02:06 IMPRESSION: Evaluation for pulmonary embolism is limited by bolus timing. There is no pulmonary embolism within the main pulmonary artery. No pulmonary embolism within the right or left main pulmonary arteries. There is no hilar pulmonary embolism. No proximal segmental pulmonary embolism identified. Further evaluation of the segmental and subsegmental pulmonary arteries is limited. Emphysematous changes. Hepatic steatosis. Partially exophytic hyperdense structure involving the left kidney. Recommend CT or MRI renal mass protocol to evaluate for neoplastic process. Other findings as discussed above. Electronically Signed: Isma Hernandez, at 3:45 EDT Tel , Service support , Brain CT 12/11/19 06:02 IMPRESSION: Paranasal sinus disease. Chronic white matter changes. No acute territorial infarct or intracranial hemorrhage identified. If patient''s symptomology persists or there is continuing clinical concern MRI or follow-up CT scan can be performed. Slightly hyperdense right MCA. The left MCA is not well seen possibly due to slice selection. Patient recently obtained IV contrast material for CT angiogram approximately 3 hours prior to this exam. The hyperdensity may be related to residual contrast in the arterial system. However a hyperdense MCA representing a thrombosis cannot be totally excluded. If there is clinical concern recommend further evaluation with CT or MR angiogram./ Electronically Signed: Isma Hernandez, at 7:00 EDT Tel , Service support , ADDENDUM: 12/11/19 0714 IMPRESSION: Paranasal sinus disease. Chronic white matter changes. No acute territorial infarct or intracranial hemorrhage identified. If patient''s symptomology persists or there is continuing clinical concern MRI or follow-up CT scan can be performed. Slightly hyperdense right MCA. The left MCA is not well seen possibly due to slice selection. Patient recently obtained IV contrast material for CT angiogram approximately 3 hours prior to this exam. The hyperdensity may be related to residual contrast in the arterial system. However a hyperdense MCA representing a thrombosis cannot be totally excluded. If there is clinical concern recommend further evaluation with CT or MR angiogram./ N.B. : The above information has been verbally conveyed by Isma Hernandez to Eleno Crawford MD, on 12/11/2019 07:07:17 (ET). Electronically Signed: Isma Hernandez, at 7:00 EDT Tel , Service support , Laboratory Tests 12/11/19 12/11/19 12/11/19 Range/Units 01:40 01:40 01:40 WBC (4.4-11.0) K/mm3 RBC (4.6-6.2) M/mm3 Hgb (13.0-16.5) g/dL Hct (40-54) % MCV (80-94) fL MCH (27.0-32.0) pg MCHC (32-36) g/dL RDW Std Deviation (35.1-43.9) fl RDW Coeff of Keysha (11.6-14.6) % Plt Count (150-450) K/mm3 MPV (6.2-12.0) fl Immature Gran % (Auto) (0.0-0.9) % Neut % (Auto) (47-70) % Lymph % (Auto) (19-41) % Ballard % (Auto) (0-10) % Eos % (Auto) (0-5) % Baso % (Auto) (0-1) % Absolute Neuts (auto) (2.0-7.7) X10^3/uL Absolute Lymphs (auto) (0.83-4.51) X10^3/uL Nucleated RBC % (0-5) % D-Dimer Quant (PE/DVT) 1.85 H* (0.27-0.49) FEU/ug/m Sodium 133 L (136-145) mmol/L Potassium 3.7 (3.5-5.1) mmol/L Chloride 99 (98-107) mmol/L Carbon Dioxide 26.0 (21.0-32.0) mmol/L Anion Gap 8 (5-15) BUN 9 (7-18) mg/dL Creatinine 0.90 (0.70-1.30) mg/dL Estim Creat Clear Calc 104.38 ml/min Est GFR (MDRD) Af Amer 109 (>60) mL/min Est GFR (MDRD) Non-Af 90 (>60) mL/min BUN/Creatinine Ratio 10.0 (10-20) RATIO Glucose 92 (74-106) mg/dL Calcium 8.6 (8.5-10.1) mg/dL Troponin I < 0.015 (<0.045) ng/mL B-Natriuretic Peptide 14.2 (0-100) pg/mL 12/11/19 Range/Units 01:40 WBC 7.8 (4.4-11.0) K/mm3 RBC 4.26 L (4.6-6.2) M/mm3 Hgb 14.2 (13.0-16.5) g/dL Hct 40.4 (40-54) % MCV 94.8 H (80-94) fL MCH 33.3 H (27.0-32.0) pg MCHC 35.1 (32-36) g/dL RDW Std Deviation 44.3 H (35.1-43.9) fl RDW Coeff of Keysha 12.9 (11.6-14.6) % Plt Count 232 (150-450) K/mm3 MPV 8.8 (6.2-12.0) fl Immature Gran % (Auto) 0.300 (0.0-0.9) % Neut % (Auto) 76.6 H (47-70) % Lymph % (Auto) 14.4 L (19-41) % Ballard % (Auto) 7.9 (0-10) % Eos % (Auto) 0.4 (0-5) % Baso % (Auto) 0.4 (0-1) % Absolute Neuts (auto) 6.0 (2.0-7.7) X10^3/uL Absolute Lymphs (auto) 1.12 (0.83-4.51) X10^3/uL Nucleated RBC % 0 (0-5) % D-Dimer Quant (PE/DVT) (0.27-0.49) FEU/ug/m Sodium (136-145) mmol/L Potassium (3.5-5.1) mmol/L Chloride (98-107) mmol/L Carbon Dioxide (21.0-32.0) mmol/L Anion Gap (5-15) BUN (7-18) mg/dL Creatinine (0.70-1.30) mg/dL Estim Creat Clear Calc ml/min Est GFR (MDRD) Af Amer (>60) mL/min Est GFR (MDRD) Non-Af (>60) mL/min BUN/Creatinine Ratio (10-20) RATIO Glucose (74-106) mg/dL Calcium (8.5-10.1) mg/dL Troponin I (<0.045) ng/mL B-Natriuretic Peptide (0-100) pg/mL - Rhythm Strip Rhythm Strip: Sinus Rhythm Rate: 73 Ectopy: None - EKG Initial EKG Interpretation: Sinus Rhythm, No Acute Injury Pattern - normal EKG Prior: Unchanged Treatment - Dyspnea: Albuterol, Atrovent Repeat Evaluation: Improved - Medical Decision Making Patient is feeling better after a duo nebulizer treatment. He had adequate oxygen saturations prior to the treatment, as well as after. He felt a little anxious after the treatment but that improved with time. His work-up was unremarkable except for an elevated d-dimer, for which a CT angiography was performed, this was all determined prior to getting a chest x-ray so that was canceled. CT angiography did not show any pulmonary embolus, or airspace disease or interstitial infiltrates. Coronavirus is thought to be less likely etiology here. Patient presents overnight, now the [facility] laboratory is closed and I am not able to obtain permission for outpatient testing. Etiologies here include viral infections and reactive airway to unknown allergen. I am going to avoid steroids at this time. His symptoms suggest recurrent orthostatic syncope, I advised him to stay well-hydrated and follow-up with his doctor. I ordered orthostatic vital signs however they did not get done before the patient had a lot of IV fluid, they were negative. Given appropriate quarantine instructions until he is further evaluated. After being here for 3 hours and no vomiting, he suddenly vomited prior to discharge. He is otherwise okay. He was treated with Zofran prior to reevaluating him, then I had a discussion with him. He states he vomited after he got up and then he felt very dizzy and feels he has been unable to walk well. His cerebellar exam is unremarkable. In further discussion, he feels like things are spinning. I suggest that maybe this is all vertigo, and his self-describe symptoms of becoming lightheaded and passing out were falsely suggesting orthostatic mechanism. He states he is afraid of falling, lives alone, and requests to stay in the hospital because he is having some any issues with falling. CT was obtained, shows the findings as above. He does not have any MCA symptoms, given that the radiologist thought that this abnormality was due to the IV contrast that he had earlier from the CT angiography. We will discuss with hospitalist for inpatient observation. ED Disposition - Plan for ED Patient: Disposition: Acute Care Hospital [facility] Diagnosis: Reactive airway disease, Upper respiratory tract infection, Vertigo, Recurrent syncope Prescriptions: Albuterol Inhaler [Ventolin Hfa] 1 - 2 puff INHALATION Q4H PRN PRN #1 inhaler PRN Reason: Wheezing Transmission Status: Received by [employer] [id number] Referrals: Hebert Whaley MD [Primary Care Provider] - 1-2 Days if not improving
[2019-12-11] MEDS: Ipratropium/Albuterol Sulfate 3 ML AMPUL.NEB INHALATION ×3 (01:45→20:07)
[2019-12-11 01:47] LABS: Absolute Lymphocyte Count 1.12 X10^3/uL (0.83-4.51); Basophil# 0.03 X10^3/uL; Basophil% 0.4 % (0-1); Eosinophil# 0.03 X10^3/uL; Eosinophils% 0.4 % (0-5); Hematocrit 40.4 % (40-54); Hemoglobin 14.2 g/dL (13.0-16.5); Lymphocyte # 1.12 X10^3/ul (4.0); Lymphocyte % 14.4 % (19-41); Mean Corp Hgb Conc 35.1 g/dL (32-36); Mean Corpuscular Hgb 33.3 pg (27.0-32.0); Mean Corpuscular Volume 94.8 fL (80-94); Mean Platelet Vol. 8.8 fl (6.2-12.0); Monocyte# 0.61 X10^3/uL; Monocyte% 7.9 % (0-10); NRBC Flagged by Analyzer 0 % (0-5); Neutrophil # 5.96 X10^3/uL (2.7-7.7); Neutrophil % 76.6 % (47-70); Platelet Count 232 K/mm3 (150-450); RBC Distribution Width CV 12.9 % (11.6-14.6); RBC Distribution Width SD 44.3 fl (35.1-43.9); Red Blood Count 4.26 M/mm3 (4.6-6.2); White Blood Count 7.8 K/mm3 (4.4-11.0)
[2019-12-11 02:06] LABS: Anion Gap 8 (5-15); BUN 9 mg/dL (7-18); Calcium,Total 8.6 mg/dL (8.5-10.1); Chloride 99 mmol/L (98-107); D-Dimer Quantitative (DVT/PE) 1.85 FEU/ug/m (0.27-0.49); EST Glomerular Filtration Rate 90 mL/min (>60); Est Glom Filt Rate - Afr Amer 109 mL/min (>60); Estimated Creatinine Clearance 104.38 ml/min; Glucose 92 mg/dL (74-106); Potassium 3.7 mmol/L (3.5-5.1); Sodium Level 133 mmol/L (136-145)
--- NOTE | 2019-12-11 02:06 | CT_ITS ---
STUDY: CTA CHEST REASON FOR EXAM: Male, 64 years old. SOB/ELEV DDIMER/COUGH/DIZZY RADIATION DOSAGE (If Supplied By Facility): CTDIvol = ( 6.32 ) mGy, DLP = ( 527.73 ) mGycm TECHNIQUE: The examination was performed with the intravenous administration of Isovue 370 100ml. Post-processing of the angiographic images was performed, with multiplanar reformation and 3D reconstruction. Individualized dose optimization techniques were used for this CT. COMPARISON: None. FINDINGS: Evaluation for pulmonary embolism is limited by bolus timing. There is no pulmonary embolism within the main pulmonary artery. No pulmonary embolism within the right or left main pulmonary arteries. There is no hilar pulmonary embolism. No proximal segmental pulmonary embolism identified. Further evaluation of the segmental and subsegmental pulmonary arteries is limited. Normal thoracic aorta and visualized great vessels. There is no demonstrated aortic dissection. Normal heart and pericardium. Coronary artery calcifications. Normal mediastinum. Normal hilar regions. 2 mm left lower lobe calcified pulmonary nodule. Emphysematous changes. No focal consolidation. No pneumothorax or pleural effusion. There is atelectasis/scarring within the lungs. There are degenerative changes of thoracic spine. Degenerative changes of the shoulders. Hepatic steatosis. Status post cholecystectomy. Area of decreased attenuation ligamentous teres region likely representing area of more focal fatty infiltrate. Similar finding within the region of the gallbladder fossa. Diverticulosis is present. There is a 3.1 cm dense structure partially exophytic from the left kidney. CT/CTA Chest W/WO Contrast IMPRESSION: Evaluation for pulmonary embolism is limited by bolus timing. There is no pulmonary embolism within the main pulmonary artery. No pulmonary embolism within the right or left main pulmonary arteries. There is no hilar pulmonary embolism. No proximal segmental pulmonary embolism identified. Further evaluation of the segmental and subsegmental pulmonary arteries is limited. Emphysematous changes. Hepatic steatosis. Partially exophytic hyperdense structure involving the left kidney. Recommend CT or MRI renal mass protocol to evaluate for neoplastic process. Other findings as discussed above. Electronically Signed: Isma Hernandez, at 3:45 EDT Tel , Service support ,
[2019-12-11 02:33] LABS: BNP,B-Type NATRIURETIC PEPTIDE 14.2 pg/mL (0-100)
--- NOTE | 2019-12-11 06:02 | CT_ITS ---
We are attempting to reach an attending provider to discuss findings. An addendum with communication details will be sent when the communication is complete. STUDY: CT BRAIN WITHOUT CONTRAST REASON FOR EXAM: Male, 64 years old. Vertigo, SOB, dizzy, cough. HAD IV CONTRAST FOR PE CHEST @ 0300 TODAY RADIATION DOSAGE (If Supplied By Facility): CTDIvol = ( 44.99 ) mGy, DLP = ( 812.98 ) mGycm TECHNIQUE: Transaxial CT imaging of the brain was performed without administration of intravenous contrast material. Individualized dose optimization techniques were used for this CT. COMPARISON: No relevant priors. FINDINGS: Normal soft tissue structures. Normal calvarium. Normal size ventricles and extra-axial spaces for the patient''s age. There are areas of decreased attenuation within the white matter tracts of the supratentorial brain, consistent with microvascular disease changes. Normal basal ganglia and thalami. Normal brainstem. Normal cerebellum. There is no intracranial hemorrhage. There are no findings of an acute territorial ischemic infarction. Paranasal sinus disease. Carotid and vertebral artery calcifications. CT/Brain/Head without Contrast IMPRESSION: Paranasal sinus disease. Chronic white matter changes. No acute territorial infarct or intracranial hemorrhage identified. If patient''s symptomology persists or there is continuing clinical concern MRI or follow-up CT scan can be performed. Slightly hyperdense right MCA. The left MCA is not well seen possibly due to slice selection. Patient recently obtained IV contrast material for CT angiogram approximately 3 hours prior to this exam. The hyperdensity may be related to residual contrast in the arterial system. However a hyperdense MCA representing a thrombosis cannot be totally excluded. If there is clinical concern recommend further evaluation with CT or MR angiogram./ Electronically Signed: Isma Hernandez, at 7:00 EDT Tel , Service support ,
[2019-12-11] MEDS: Meclizine HCl 25 MG Tablet PO ×2 (06:22→13:05)
[2019-12-11] MEDS: 0.9% Normal Saline 1,000 ML 100 ML IV ×2 (12:02→22:09)
--- NOTE | 2019-12-11 14:32 | PCM.HP.STD ---
<Stefani Danielson - Last Filed: 12/11/19 15:09> History of Present Illness Date of Admission: 12/11/19 Chief Complaint: Shortness of breath, cough, lightheadedness with presyncope. The patient is a 64 year old M who presents the emergency room due to shortness of breath, cough, lightheadedness. Patient states this initially started a few weeks ago and has worsened since that time. He reports episodes of presyncope. Denies fever. Denies productive cough. He denies chest pain. Patient also reports intermittent loose stools and nausea, vomiting. Denies abdominal pain. Patient states his girlfriend lives in [place] and he returned about a week ago from visiting her. He denies any exposure to sick contacts. Patient has a 30-year smoking history. He has never had PFTs or been evaluated by pulmonary medicine. Denies known history of COPD. Patient also reports heavy alcohol use. He has a past medical history of psoriasis, hypothyroidism and GERD. Past Medical History Past Medical History (Chronic Problems): Chronic Problems Psoriasis (Chronic) Hypothyroidism (Chronic) Allergies codeine Adverse Reaction (Intermediate, Verified 12/11/19 01:30) Upset Stomach Home Medications: Ambulatory Orders Medication Instructions Recorded Levothyroxine Sodium [Synthroid] 200 mcg PO DAILY 03/10/16 Multivitamin [Multiple Vitamins] 1 each PO DAILY 08/21/18 Albuterol Inhaler [Ventolin Hfa] 1 - 2 puff INHALATION Q4H PRN PRN 12/11/19 #1 inhaler Aspirin [Aspirin, Baby] 81 mg PO DAILY 12/11/19 Famotidine [Pepcid] 20 mg PO DAILY 12/11/19 Ustekinumab [Stelara] 90 mg SQ UD 12/11/19 Surgical History: - - Left hip replacement Psychiatric History: No pertinent psych hx Lives: Alone Smoking Status: Current every day smoker Tobacco Use: Cigarettes Alcohol: Heavy Drugs: None - *Family History Maternal History Items: - - related to stomach cancer Paternal History Items: - - related to pneumonia complications Review of Systems Constitutional: Denies: Chills, Fever, Weight Change HEENT: Denies: Head Aches, Sinus Congestion, Sinus Drainage Cardiovascular: Reports: Light Headedness. Denies: Chest Pain, Edema, Palpitations Respiratory: Reports: Cough, Shortness of Breath, Wheezing. Denies: Sputum production Gastrointestinal: Reports: Diarrhea, Nausea, Vomiting Genitourinary: Denies: Dysuria Musculoskeletal: Denies: Joint Pain, Joint Tenderness Skin: Denies: Rash, Wounds Neurological: Denies: Numbness, Tingling, Focal weakness Psychiatric: Denies: Anxiety, Depression, Homicidal Ideations, Suicidal Ideations Hematologic/ Lymphatic: Denies: Easy Bruising, Easy Bleeding VTE Information - Inpt Only VTE Present on Admission: No VTE Mechan Device Prophylaxis: None VTE Pharm Prophylaxis ordered?: Yes Patient Problems: Active and Suspected Problems Reactive airway disease (Acute) Upper respiratory tract infection (Acute) Vertigo (Acute) Recurrent syncope (Acute) - Physical Exam Vitals/I&O's: Vital Signs Temp Pulse Resp BP Pulse Ox 98.0 F 69 16 131/67 H 98 12/11/19 11:03 12/11/19 12:20 12/11/19 11:03 12/11/19 11:03 12/11/19 11:03 Oxygen Flow Rate (L/min) 2 Oxygen Delivery Method Room Air Weight: 198 lb 6.656 oz Body Mass Index (BMI) 22.9 Intake and Output for Last 24 Hours 12/09/19 12/10/19 12/11/19 23:59 23:59 23:59 Intake Total 416.51 / 416.51 Output Total Balance 415.51 / 415.51 General: Alert, Oriented x3, Cooperative HEENT: Atraumatic, PERRLA, EOMI, Normocephalic Neck: Supple, No JVD, Negative Carotid Bruits Lungs: Diminished, Wheezes Cardiovascular: Regular rate, Regular Rhythm, Normal S1, Normal S2, No murmurs Abdomen: Bowel Sounds Present, Soft, Non Tender, Non-Distended Extremities: No clubbing, No cyanosis, No edema, Capillary Refill Less than 3 Seconds Skin: No rashes, No breakdown Musculoskeletal: No Tenderness to Palpation of Joints or Extremities Neurological: Cranial nerves II-XII grossly intact, Neuro grossly intact Psych/Mental Status: Normal Affect, Appropriate Microbiology Past 72 Hours 12/11/19 07:37 Mucosa - Nasopharyngeal Coronavirus COVID-19 PCR - Final Laboratory Results 12/11/19 01:40: WBC 7.8, RBC 4.26 L, Hgb 14.2, Hct 40.4, MCV 94.8 H, MCH 33.3 H, MCHC 35.1, RDW Std Deviation 44.3 H, RDW Coeff of Keysha 12.9, Plt Count 232, MPV 8.8, Immature Gran % (Auto) 0.300, Neut % (Auto) 76.6 H, Lymph % (Auto) 14.4 L, [place] % (Auto) 7.9, Eos % (Auto) 0.4, Baso % (Auto) 0.4, Absolute Neuts (auto) 6.0, Absolute Lymphs (auto) 1.12, Nucleated RBC % 0 12/11/19 01:40: D-Dimer Quant (PE/DVT) 1.85 H* 12/11/19 01:40: Sodium 133 L, Potassium 3.7, Chloride 99, Carbon Dioxide 26.0, Anion Gap 8, BUN 9, Creatinine 0.90, Estim Creat Clear Calc 104.38, Est GFR (MDRD) Af Amer 109, Est GFR (MDRD) Non-Af 90, BUN/Creatinine Ratio 10.0, Glucose 92, Calcium 8.6, Troponin I < 0.015 12/11/19 01:40: B-Natriuretic Peptide 14.2 Current Medications Sodium Chloride () 250 mls @ 15 mls/hr IV .[id number] PRN PRN Reason: Saline Flush Sodium Chloride () 250 mls @ 15 mls/hr IV .[id number] PRN PRN Reason: Additional IVPB Infusion Sodium Chloride () 1,000 mls @ 100 mls/hr IV .Q10H TAYLOR Last Admin: 12/11/19 12:02 Dose: 100 mls/hr Documented by: Meclizine HCl (Antivert) 25 mg PO TID PRN PRN PRN Reason: vertigo Last Admin: 12/11/19 13:05 Dose: 25 mg Documented by: Melatonin (Melatonin) 3 mg PO QHS TAYLOR Sodium Chloride () 10 - 40 ml IV UD PRN PRN Reason: SALINE FLUSH Assessment/Plan All Active Problems Reactive airway disease (Acute) Upper respiratory tract infection (Acute) Vertigo (Acute) Recurrent syncope (Acute) 1. Dyspnea, presumed COPD exacerbation-chest CTA without PE. Emphysematous changes. Patient has been a smoker for 30 years. Suspect COPD although he has not had formal PFTs. Wheezing on assessment. COVID test negative. Obtain respiratory panel. IV Solu-Medrol. Albuterol and DuoNeb aerosols. 2. Lightheadedness, presyncope, vertigo-orthostatic vitals borderline. Troponin negative. Brain CT without acute process. IV fluids. Repeat orthostatic vitals in a.m. meclizine as needed for vertigo. 3. Alcohol abuse-patient reports 3-4 beers per day as well as 3-4 liquor drinks. Patient reports last drink was 2 days ago. He also reports increased alcohol use recently while in [place] stating he got hammered every day with his girlfriend. CIWA/Ativan protocol. Folic acid, thiamine, multivitamin supplementation. 4. Tobacco dependence-encouraged cessation. Nicotine replacement patch. 5. Psoriasis-on Stelara. 6. Hypothyroidism-continue Synthroid regimen. 7. GERD-continue famotidine regimen. DVT prophylaxis-Lovenox subcu This patient was seen by NOEL Cochran under the supervision of Dr. Goff. <Brian Goff F - Last Filed: 12/11/19 17:47> History of Present Illness The patient is a 64 year old M [] Past Medical History Allergies codeine Adverse Reaction (Intermediate, Verified 12/11/19 01:30) Upset Stomach - Physical Exam Vitals/I&O's: Vital Signs Temp Pulse Resp BP Pulse Ox 98.2 F 62 16 118/62 97 12/11/19 16:48 12/11/19 16:48 12/11/19 16:48 12/11/19 16:48 12/11/19 16:48 Oxygen Flow Rate (L/min) 2 Oxygen Delivery Method Room Air Weight: 198 lb 6.656 oz Body Mass Index (BMI) 22.9 Intake and Output for Last 24 Hours 12/09/19 12/10/19 12/11/19 23:59 23:59 23:59 Intake Total 416.51 / 416.51 Output Total Balance 415.51 / 415.51 Microbiology Past 72 Hours 12/11/19 07:37 Mucosa - Nasopharyngeal Coronavirus COVID-19 PCR - Final Laboratory Results 12/11/19 01:40: WBC 7.8, RBC 4.26 L, Hgb 14.2, Hct 40.4, MCV 94.8 H, MCH 33.3 H, MCHC 35.1, RDW Std Deviation 44.3 H, RDW Coeff of Keysha 12.9, Plt Count 232, MPV 8.8, Immature Gran % (Auto) 0.300, Neut % (Auto) 76.6 H, Lymph % (Auto) 14.4 L, [place] % (Auto) 7.9, Eos % (Auto) 0.4, Baso % (Auto) 0.4, Absolute Neuts (auto) 6.0, Absolute Lymphs (auto) 1.12, Nucleated RBC % 0 12/11/19 01:40: D-Dimer Quant (PE/DVT) 1.85 H* 12/11/19 01:40: Sodium 133 L, Potassium 3.7, Chloride 99, Carbon Dioxide 26.0, Anion Gap 8, BUN 9, Creatinine 0.90, Estim Creat Clear Calc 104.38, Est GFR (MDRD) Af Amer 109, Est GFR (MDRD) Non-Af 90, BUN/Creatinine Ratio 10.0, Glucose 92, Calcium 8.6, Troponin I < 0.015 12/11/19 01:40: B-Natriuretic Peptide 14.2 12/11/19 01:40: Ethyl Alcohol 140.0 Current Medications Albuterol Sulfate (Ventolin Aerosols) 2.5 mg INHALATION Q2H PRN PRN PRN Reason: SHORTNESS OF BREATH Albuterol/Ipratropium (Duoneb) 3 ml INHALATION Q4HWA.RT [facility] Last Admin: 12/11/19 15:44 Dose: 3 ml Documented by: [facility]ir[facility], [facility]) [facility] Famotidine (Pepcid) 20 mg PO DAILY [facility] Folic Acid (Folic Acid) 1 mg PO DAILY@0800 [facility] Stop: 12/14/19 08:01 Sodium Chloride () 250 mls @ 15 mls/hr IV .[id number] PRN PRN Reason: Saline Flush Sodium Chloride () 250 mls @ 15 mls/hr IV .[id number] PRN PRN Reason: Additional IVPB Infusion Sodium Chloride () 1,000 mls @ 100 mls/hr IV .Q10H TAYLOR Last Admin: 12/11/19 12:02 Dose: 100 mls/hr Documented by: Levothyroxine Sodium (Synthroid) 200 mcg PO DAILY@0600 [facility] Lorazepam (Ativan) 2 mg PO Q2H PRN PRN; Protocol PRN Reason: CIWA score > 8 but <15 Lorazepam (Ativan) 2 mg PO UD PRN; Protocol PRN Reason: CIWA score >/=15. Lorazepam (Ativan) 2 mg IV Q2H PRN PRN; Protocol PRN Reason: CIWA score > 8 but <15 Lorazepam (Ativan) 2 mg IV UD PRN; Protocol PRN Reason: CIWA score >/=15. Meclizine HCl (Antivert) 25 mg PO TID PRN PRN PRN Reason: vertigo Last Admin: 12/11/19 13:05 Dose: 25 mg Documented by: Melatonin (Melatonin) 3 mg PO QHS [facility] Methylprednisolone (Solu-Medrol) 40 mg IV Q8 [facility] Last Admin: 12/11/19 16:45 Dose: 40 mg Documented by: Multivitamins/Minerals (Multivitamin With Minerals (Bkc)) 1 tablet PO DAILYCM [facility] Nutritional Formula (Lactose Free) (Ensure Enlive) 120 ml PO 4X/DAY [facility] Last Admin: 12/11/19 16:45 Dose: 120 ml Documented by: Sodium Chloride () 10 - 40 ml IV UD PRN PRN Reason: SALINE FLUSH Last Admin: 12/11/19 16:45 Dose: 10 ml Documented by: Thiamine HCl (Vitamin B1) 100 mg PO BIDCM [facility] Stop: 12/14/19 08:01 Last Admin: 12/11/19 16:45 Dose: 100 mg Documented by: Addendum: Dr. Goff I personally examined the patient and reviewed the chart. I agree with the above. 64-year-old male who presents from home last night into this morning with ongoing fatigue, weakness, difficulty walking as well as vertigo presyncope and a cough. The cough is nonproductive and his COVID test was negative. CTA was negative even though his d-dimer was elevated to 1.89. There was no signs of significant pulmonary disease. However on exam he does have wheezing and he is a smoker though is never been diagnosed with COPD. He is feeling better with IV fluids and with the breathing treatments, and he states that he has not been eating or drinking well over the last several days therefore it is likely that the presyncope/vertigo is secondary to dehydration and his COPD. He is not hypoxic at this time and we will continue with his breathing treatments, steroids, and IV fluids. OBSV E&M: [id number] Initial observation care L3
--- NOTE | 2019-12-11 14:58 | ECHOD_ITS ---
Reason For Study: Near syncope Procedure This was a 2D Doppler, Color Flow transthoracic echocardiogram. Exam performed portable in patient room. Left Ventricle Normal size and thickness. The estimated ejection fraction is 65 %. Normal diastology for age. No regional wall motion abnormalities noted. Right Ventricle Normal size and thickness. Normal systolic function. Atria Normal left atrium. Normal right atrium. Normal atrial septum. Mitral Valve The mitral valve is structurally normal. No prolapse or stenosis seen. Tricuspid Valve Normal tricuspid valve. Mild (1+) tricuspid valve insufficiency. Right ventricular systolic pressure estimated to be 28 mmHg. Aortic Valve Normal aortic valve. Trisinus/trileaflet aortic valve. Pulmonic Valve Normal pulmonic valve. Great Vessels Normal aortic root. Normal arch. Normal inferior vena cava. Inferior vena cava collapse with sniff. Pericardium/Pleural No pericardial effusion. MMode/2D Measurements & Calculations LVIDd: 5.4 cm IVSd: 1.0 cm Ao root diam: 3.4 cm LVIDs: 3.2 cm LVPWd: 1.0 cm RVDd: 3.7 cm FS: 40.6 % LAV(MOD-bp): 55.3 ml LVAd ap4: 33.2 cm2 SV(MOD-sp4): 67.0 ml LAV(MOD-bp) Indexed: 24.6 ml/m2 EDV(MOD-sp4): 104.3 ml LAV(MOD-sp2): 56.7 ml EDV(sp4-el): 109.7 ml LAV(MOD-sp4): 52.4 ml LVAs ap4: 17.1 cm2 ESV(MOD-sp4): 37.2 ml ESV(sp4-el): 37.1 ml EF(MOD-sp4): 64.3 % EF(sp4-el): 66.2 % SV(sp4-el): 72.6 ml LA A4 area: 18.5 cm2 LA dimension(2D): 3.6 cm RA A4 area: 17.0 cm2 Doppler Measurements & Calculations MV E max shahbaz: 63.7 cm/sec Lat Peak E' Shahbaz: 13.8 cm/sec Med Peak E' Shahbaz: 9.1 cm/sec MV A max shahbaz: 65.3 cm/sec E/E' lat: 4.6 E/E' med: 7.0 MV E/A: 0.98 Ao V2 max: 133.8 cm/sec LV V1 max: 109.4 cm/sec PA V2 max: 89.7 cm/sec Ao max P.2 mmHg LV V1 max P.8 mmHg TR max shahbaz: 241.4 cm/sec TR max P.3 mmHg Interpretation Summary The estimated ejection fraction is 65 %. Normal diastology for age. Mild (1+) tricuspid valve insufficiency. Right ventricular systolic pressure estimated to be 28 mmHg. There is no comparison study available. Ordering Physician: Stefani Danielson Referring Physician: Hebert Whaley Performed By: Maria M Leonardo RDCS
[2019-12-11] MEDS: 0.9% Saline Lock 10 ML Syringe IV (16:45)
[2019-12-11] MEDS: Thiamine Hydrochloride 100 MG Tablet PO (16:45)
[2019-12-11] MEDS: MELATONIN 3 MG TABLET PO (22:10)
[2019-12-12] VITALS (8 sets, daily range): BP systolic 117–126; BP diastolic 73–75; PULSE 54–82; RESP 16–21; TEMP 36.6–37.1; O2SAT 94–96
[2019-12-12] MEDS: Ipratropium/Albuterol Sulfate 3 ML AMPUL.NEB INHALATION ×3 (00:25→11:10)
[2019-12-12] MEDS: Levothyroxine 100 MCG Tablet 200 MCG PO (05:42)
[2019-12-12] MEDS: 0.9% Normal Saline 1,000 ML 100 ML IV (05:49)
--- NOTE | 2019-12-12 06:11 | NURSING ---
Urine drug screen collected 604, sent to lab 06
[2019-12-12 06:29] LABS: Absolute Lymphocyte Count 0.57 X10^3/uL (0.83-4.51); Absolute Neutrophil Count 4.6 X10^3/uL (2.0-7.7); Basophil# 0.01 X10^3/uL; Basophil% 0.2 % (0-1); Lymphocyte # 0.57 X10^3/ul (4.0); Lymphocyte % 10.4 % (19-41); Mean Corp Hgb Conc 34.1 g/dL (32-36); Mean Corpuscular Hgb 33.3 pg (27.0-32.0); Mean Corpuscular Volume 97.6 fL (80-94); Mean Platelet Vol. 9.4 fl (6.2-12.0); Monocyte# 0.25 X10^3/uL; Monocyte% 4.6 % (0-10); NRBC Flagged by Analyzer 0 % (0-5); Neutrophil # 4.59 X10^3/uL (2.7-7.7); Neutrophil % 84.1 % (47-70); POSITIVE DIFFERENTIAL YES; Platelet Count 220 K/mm3 (150-450); RBC Distribution Width CV 12.9 % (11.6-14.6); RBC Distribution Width SD 46.3 fl (35.1-43.9); White Blood Count 5.5 K/mm3 (4.4-11.0)
[2019-12-12 06:35] LABS: Amphetamine Urine VISTA NEGATIVE (<1000 ng/mL); Barbiturate Urine VISTA NEGATIVE (< 200 ng/mL); Benzodiazepine Urine VISTA NEGATIVE (< 200 ng/mL); Cocaine Urine VISTA NEGATIVE (< 300 ng/mL); Ecstacy Urine VISTA NEGATIVE (< 500 ng/mL); Methadone Urine VISTA NEGATIVE (< 300 ng/mL); PCP Urine VISTA NEGATIVE (< 25 ng/mL); THC Urine VISTA NEGATIVE (< 50 ng/mL); Vista UDS pH Range 6
[2019-12-12 06:42] LABS: Differential Indicated SCAN CRITERIA MET
[2019-12-12 07:00] LABS: Anion Gap 7 (5-15); BUN 9 mg/dL (7-18); BUN/Creat Ratio 10.1 RATIO (10-20); Calcium,Total 8.7 mg/dL (8.5-10.1); Chloride 102 mmol/L (98-107); Creatinine, Serum 0.89 mg/dL (0.70-1.30); EST Glomerular Filtration Rate 91 mL/min (>60); Est Glom Filt Rate - Afr Amer 110 mL/min (>60); Estimated Creatinine Clearance 103.93 ml/min; Glucose 160 mg/dL (74-106); Potassium 3.7 mmol/L (3.5-5.1); Sodium Level 135 mmol/L (136-145)
[2019-12-12] MEDS: Folic Acid 1 MG Tablet PO (08:16)
[2019-12-12] MEDS: Aspirin 81 MG TAB.CHEW PO (08:16)
[2019-12-12] MEDS: Multivitamins,Ther W-Minerals Tablet 1 TABLET PO (08:16)
[2019-12-12] MEDS: Thiamine Hydrochloride 100 MG Tablet PO (08:16)
[2019-12-12] MEDS: Famotidine 20 MG Tablet PO (08:17)
--- NOTE | 2019-12-12 11:21 | PCM.DC ---
- Discharge Diagnoses Current Active Problems: Current Active and Chronic Problems Reactive airway disease (Acute) Upper respiratory tract infection (Acute) Vertigo (Acute) Recurrent syncope (Acute) You will use the following diet at home:: No restrictions Discharge Activity: Return to Normal Activity Call your doctor if you observe: Shortness of breath, Dizziness, Fainting spells, Chest pain Allergies/Adverse Reactions: Allergies codeine Adverse Reaction (Intermediate, Verified 12/11/19 01:30) Upset Stomach Medications to take at Discharge Levothyroxine Sodium [Synthroid] 200 mcg PO DAILY 03/10/16 Multivitamin [Multiple Vitamins] 1 each PO DAILY 08/21/18 Albuterol Inhaler [Ventolin Hfa] 1 - 2 puff INHALATION Q4H PRN PRN #1 inhaler 12/11/19 Aspirin [Aspirin, Baby] 81 mg PO DAILY 12/11/19 Famotidine [Pepcid] 20 mg PO DAILY 12/11/19 Ustekinumab [Stelara] 90 mg SQ UD 12/11/19 Meclizine HCl [Antivert] 25 mg PO TID PRN PRN #30 tab 12/12/19 Prednisone See Taper PO DAILY #30 tab 12/12/19 The following prescriptions were given: Meclizine HCl [Antivert] 25 mg PO TID PRN PRN #30 tab PRN Reason: vertigo Transmission Status: Pending to [facility] Prednisone See Taper PO DAILY #30 tab Transmission Status: Pending to [facility] #[facility] Albuterol Inhaler [Ventolin Hfa] 1 - 2 puff INHALATION Q4H PRN PRN #1 inhaler PRN Reason: Wheezing Transmission Status: Received by [facility] Primary Care Physician: Hebert Whaley MD [Primary Care Provider] - 1-2 Days if not improving Please follow up with your Primary Care Physician in: 1 Week Test Results: Test results from this visit will be discussed in further detail at your follow-up appointment, if applicable. Please Follow Up With: Ric Alberts MD - Pulmonary medicine When: 2-4 weeks Proposed Discharge Date: 12/12/19
--- NOTE | 2019-12-12 11:42 | PCM.DC.SUM ---
<Stefani Danielson - Last Filed: 12/12/19 11:52> Discharge Date and Diagnosis Date of Admission: 12/11/19 Date of Discharge: 12/12/19 - Primary Discharge Diagnosis Acute Problems: Active Problems 1. Dyspnea, presumed COPD exacerbation 2. Vertigo 3. Alcohol abuse 4. Tobacco dependence 5. Psoriasis 6. Hypothyroidism 7. GERD - Secondary Discharge Diagnosis Chronic Problems: Chronic Problems Psoriasis (Chronic) Hypothyroidism (Chronic) Hospital Course and Treatment Imaging Results: Diagnostic Data Chest CTA 12/11/19 02:06 IMPRESSION: Evaluation for pulmonary embolism is limited by bolus timing. There is no pulmonary embolism within the main pulmonary artery. No pulmonary embolism within the right or left main pulmonary arteries. There is no hilar pulmonary embolism. No proximal segmental pulmonary embolism identified. Further evaluation of the segmental and subsegmental pulmonary arteries is limited. Emphysematous changes. Hepatic steatosis. Partially exophytic hyperdense structure involving the left kidney. Recommend CT or MRI renal mass protocol to evaluate for neoplastic process. Other findings as discussed above. Electronically Signed: Isma Hernandez, at 3:45 EDT Tel , Service support , Brain CT 12/11/19 06:02 IMPRESSION: Paranasal sinus disease. Chronic white matter changes. No acute territorial infarct or intracranial hemorrhage identified. If patient''s symptomology persists or there is continuing clinical concern MRI or follow-up CT scan can be performed. Slightly hyperdense right MCA. The left MCA is not well seen possibly due to slice selection. Patient recently obtained IV contrast material for CT angiogram approximately 3 hours prior to this exam. The hyperdensity may be related to residual contrast in the arterial system. However a hyperdense MCA representing a thrombosis cannot be totally excluded. If there is clinical concern recommend further evaluation with CT or MR angiogram./ Electronically Signed: Isma Hernandez, at 7:00 EDT Tel , Service support , ADDENDUM: 12/11/19 0714 IMPRESSION: Paranasal sinus disease. Chronic white matter changes. No acute territorial infarct or intracranial hemorrhage identified. If patient''s symptomology persists or there is continuing clinical concern MRI or follow-up CT scan can be performed. Slightly hyperdense right MCA. The left MCA is not well seen possibly due to slice selection. Patient recently obtained IV contrast material for CT angiogram approximately 3 hours prior to this exam. The hyperdensity may be related to residual contrast in the arterial system. However a hyperdense MCA representing a thrombosis cannot be totally excluded. If there is clinical concern recommend further evaluation with CT or MR angiogram./ N.B. : The above information has been verbally conveyed by Isma Hernandez to Eleno Crawford MD, on 12/11/2019 07:07:17 (ET). Electronically Signed: Isma Hernandez, at 7:00 EDT Tel , Service support , Operations: None Procedures: 2-D Echocardiogram Summary of Care Provided: The patient is a 64 year old M admitted 12/11/2019 due to shortness of breath, cough, lightheadedness with presyncope. 1. Dyspnea, presumed COPD exacerbation-chest CTA without PE. Emphysematous changes. Patient has been a smoker for 30 years. Suspect COPD although he has not had formal PFTs. COVID test negative. Respiratory panel negative. IV Solu-Medrol, transition to prednisone taper. Albuterol inhaler. Referred to pulmonary medicine for further evaluation and management of COPD. 2. Lightheadedness, presyncope, vertigo-orthostatic vitals borderline on admission. Troponin negative. Brain CT without acute process. IV fluids during admission. PRN meclizine for vertigo. Echocardiogram completed, report pending. 3. Alcohol abuse-patient reports 3-4 beers per day as well as 3-4 liquor drinks. No evidence of alcohol withdrawal during admission. 4. Tobacco dependence-encouraged cessation. Nicotine replacement patch. 5. Psoriasis-on Stelara. 6. Hypothyroidism-continue Synthroid regimen. 7. GERD-continue famotidine regimen. General: Alert, Oriented x3, Cooperative HEENT: Atraumatic, PERRLA, EOMI, Normocephalic Neck: Supple, No JVD, Negative Carotid Bruits Lungs: Diminished, Wheezes Cardiovascular: Regular rate, Regular Rhythm, Normal S1, Normal S2, No murmurs Abdomen: Bowel Sounds Present, Soft, Non Tender, Non-Distended Extremities: No clubbing, No cyanosis, No edema, Capillary Refill Less than 3 Seconds Skin: No rashes, No breakdown Musculoskeletal: No Tenderness to Palpation of Joints or Extremities Neurological: Cranial nerves II-XII grossly intact, Neuro grossly intact Psych/Mental Status: Normal Affect, Appropriate Patient seen and examined prior to discharge. Physical assessment as noted above. Patient is stable for discharge with follow up recommendations as noted above. This patient was seen by NOEL Cochran under the supervision of Dr. Goff. - Physical Exam Vitals/I&O's: Vital Signs Temp Pulse Resp BP Pulse Ox 97.8 F 72 18 126/75 H 94 12/12/19 08:03 12/12/19 11:40 12/12/19 11:40 12/12/19 08:03 12/12/19 08:03 Oxygen Flow Rate (L/min) 2 Oxygen Delivery Method Room Air Weight: 198 lb 6.656 oz Body Mass Index (BMI) 22.9 Intake and Output for Last 24 Hours 12/10/19 12/11/19 12/12/19 23:59 23:59 23:59 Intake Total 2146.51 / 2146.51 1166.67 / 1166.67 Output Total Balance 2145.51 / 2145.51 1166.67 / 1166.67 Microbiology Past 72 Hours 12/11/19 07:37 Mucosa - Nose Respiratory Panel (PCR) - Final 12/11/19 07:37 Mucosa - Nasopharyngeal Coronavirus COVID-19 PCR - Final Laboratory Results 12/11/19 01:40: Ethyl Alcohol 140.0 12/12/19 06:05: Urine Opiates Screen NEGATIVE, Urine Methadone Screen NEGATIVE, Ur Barbiturates Screen NEGATIVE, Ur Phencyclidine Scrn NEGATIVE, Ur Amphetamines Screen NEGATIVE, U Methamphetamin-MDMA NEGATIVE, U Benzodiazepines Scrn NEGATIVE, Urine Cocaine Screen NEGATIVE, U Cannabinoids Screen NEGATIVE, Ur Drug Screen Comment 12/12/19 06:12: WBC 5.5, RBC 4.20 L, Hgb 14.0, Hct 41.0, MCV 97.6 H, MCH 33.3 H, MCHC 34.1, RDW Std Deviation 46.3 H, RDW Coeff of Keysha 12.9, Plt Count 220, MPV 9.4, Immature Gran % (Auto) 0.700, Neut % (Auto) 84.1 H, Lymph % (Auto) 10.4 L, [place] % (Auto) 4.6, Eos % (Auto) 0.0, Baso % (Auto) 0.2, Absolute Neuts (auto) 4.6, Absolute Lymphs (auto) 0.57 L, Nucleated RBC % 0, Differential Comment COMMENT 12/12/19 06:12: Sodium 135 L, Potassium 3.7, Chloride 102, Carbon Dioxide 26.0, Anion Gap 7, BUN 9, Creatinine 0.89, Estim Creat Clear Calc 103.93, Est GFR (MDRD) Af Amer 110, Est GFR (MDRD) Non-Af 91, BUN/Creatinine Ratio 10.1, Glucose 160 H, Calcium 8.7 Current Medications Albuterol Sulfate (Ventolin Aerosols) 2.5 mg INHALATION Q2H PRN PRN PRN Reason: SHORTNESS OF BREATH Albuterol/Ipratropium (Duoneb) 3 ml INHALATION Q4HWA.RT [facility] Last Admin: 12/12/19 11:10 Dose: 3 ml Documented by: [facility]ir[facility] ([facility], [facility]) [facility] Admin: 12/12/19 08:16 Dose: 81 mg Documented by: Famotidine (Pepcid) 20 mg PO DAILY [facility] Last Admin: 12/12/19 08:17 Dose: 20 mg Documented by: Folic Acid (Folic Acid) 1 mg PO DAILY@0800 [facility] Stop: 12/14/19 08:01 Last Admin: 12/12/19 08:16 Dose: 1 mg Documented by: Sodium Chloride () 250 mls @ 15 mls/hr IV .[id number] PRN PRN Reason: Saline Flush Sodium Chloride () 250 mls @ 15 mls/hr IV .[id number] PRN PRN Reason: Additional IVPB Infusion Sodium Chloride () 1,000 mls @ 100 mls/hr IV .Q10H [facility] Last Admin: 12/12/19 05:49 Dose: 100 mls/hr Documented by: Levothyroxine Sodium (Synthroid) 200 mcg PO DAILY@0600 [facility] Last Admin: 12/12/19 05:42 Dose: 200 mcg Documented by: Lorazepam (Ativan) 2 mg PO Q2H PRN PRN; Protocol PRN Reason: CIWA score > 8 but <15 Lorazepam (Ativan) 2 mg PO UD PRN; Protocol PRN Reason: CIWA score >/=15. Lorazepam (Ativan) 2 mg IV Q2H PRN PRN; Protocol PRN Reason: CIWA score > 8 but <15 Lorazepam (Ativan) 2 mg IV UD PRN; Protocol PRN Reason: CIWA score >/=15. Meclizine HCl (Antivert) 25 mg PO TID PRN PRN PRN Reason: vertigo Last Admin: 12/11/19 13:05 Dose: 25 mg Documented by: Melatonin (Melatonin) 3 mg PO QHS [facility] Last Admin: 12/11/19 22:10 Dose: 3 mg Documented by: Methylprednisolone (Solu-Medrol) 40 mg IV Q8 [facility] Last Admin: 12/12/19 05:42 Dose: 40 mg Documented by: Multivitamins/Minerals (Multivitamin With Minerals (Bkc)) [facility] Last Admin: 12/12/19 08:16 Dose: 1 tablet Documented by: Nutritional Formula (Lactose Free) (Ensure Enlive) 120 ml PO 4X/DAY [facility] Last Admin: 12/12/19 08:33 Dose: Not Given Documented by: Sodium Chloride () 10 - 40 ml IV UD PRN PRN Reason: SALINE FLUSH Last Admin: 12/11/19 16:45 Dose: 10 ml Documented by: Thiamine HCl (Vitamin B1) [facility] Stop: 12/14/19 08:01 Last Admin: 12/12/19 08:16 Dose: 100 mg Documented by: Discharge Diet: No Restrictions Discharge Activity: Return to Normal Activity Call your doctor if you observe: Shortness of breath, Dizziness, Fainting spells, Chest pain Home Medications: Medications to take at Discharge Levothyroxine Sodium [Synthroid] 200 mcg PO DAILY 03/10/16 Multivitamin [Multiple Vitamins] 1 each PO DAILY 08/21/18 Albuterol Inhaler [Ventolin Hfa] 1 - 2 puff INHALATION Q4H PRN PRN #1 inhaler 12/11/19 Aspirin [Aspirin, Baby] 81 mg PO DAILY 12/11/19 Famotidine [Pepcid] 20 mg PO DAILY 12/11/19 Ustekinumab [Stelara] 90 mg SQ UD 12/11/19 Meclizine HCl [Antivert] 25 mg PO TID PRN PRN #30 tab 12/12/19 Prednisone See Taper PO DAILY #30 tab 12/12/19 Following Prescrptions Were Given to Patient: Meclizine HCl [Antivert] 25 mg PO TID PRN PRN #30 tab PRN Reason: vertigo Transmission Status: Received by [facility] Prednisone See Taper PO DAILY #30 tab Transmission Status: Received by [facility] Albuterol Inhaler [Ventolin Hfa] 1 - 2 puff INHALATION Q4H PRN PRN #1 inhaler PRN Reason: Wheezing Transmission Status: Received by [facility] Primary Care Physician: Hebert Whaley MD [Primary Care Provider] - 1-2 Days if not improving Please follow up with your Primary Care Physician in: 1 Week Please Follow Up With: Ric Alberts MD - Pulmonary medicine When: 2-4 weeks Disposition: Home Minutes spent on discharge:: 35 Patient Condition:: Stable Medical Necessity - Tobacco Use Smoking Status: Current every day smoker Tobacco Use: Cigarettes Meaningful Use Info Meaningful Use Diagnoses (Choose all that apply): None applicable <Brian Goff F - Last Filed: 12/12/19 12:34> Discharge Date and Diagnosis - Secondary Discharge Diagnosis Chronic Problems: Chronic Problems Psoriasis (Chronic) Hypothyroidism (Chronic) Hospital Course and Treatment Summary of Care Provided: The patient is a 64 year old M [] - Physical Exam Vitals/I&O's: Vital Signs Temp Pulse Resp BP Pulse Ox 97.8 F 72 18 126/75 H 94 12/12/19 08:03 12/12/19 11:40 12/12/19 11:40 12/12/19 08:03 12/12/19 08:03 Oxygen Flow Rate (L/min) 2 Oxygen Delivery Method Room Air Weight: 198 lb 6.656 oz Body Mass Index (BMI) 22.9 Intake and Output for Last 24 Hours 12/10/19 12/11/19 12/12/19 23:59 23:59 23:59 Intake Total 2146.51 / 2146.51 2145.00 / 2145.00 Output Total Balance 2145.51 / 2145.51 2145.00 / 2145.00 Microbiology Past 72 Hours 12/11/19 07:37 Mucosa - Nose Respiratory Panel (PCR) - Final 12/11/19 07:37 Mucosa - Nasopharyngeal Coronavirus COVID-19 PCR - Final Laboratory Results 12/11/19 01:40: Ethyl Alcohol 140.0 12/12/19 06:05: Urine Opiates Screen NEGATIVE, Urine Methadone Screen NEGATIVE, Ur Barbiturates Screen NEGATIVE, Ur Phencyclidine Scrn NEGATIVE, Ur Amphetamines Screen NEGATIVE, U Methamphetamin-MDMA NEGATIVE, U Benzodiazepines Scrn NEGATIVE, Urine Cocaine Screen NEGATIVE, U Cannabinoids Screen NEGATIVE, Ur Drug Screen Comment 12/12/19 06:12: WBC 5.5, RBC 4.20 L, Hgb 14.0, Hct 41.0, MCV 97.6 H, MCH 33.3 H, MCHC 34.1, RDW Std Deviation 46.3 H, RDW Coeff of Keysha 12.9, Plt Count 220, MPV 9.4, Immature Gran % (Auto) 0.700, Neut % (Auto) 84.1 H, Lymph % (Auto) 10.4 L, [place] % (Auto) 4.6, Eos % (Auto) 0.0, Baso % (Auto) 0.2, Absolute Neuts (auto) 4.6, Absolute Lymphs (auto) 0.57 L, Nucleated RBC % 0, Differential Comment COMMENT 12/12/19 06:12: Sodium 135 L, Potassium 3.7, Chloride 102, Carbon Dioxide 26.0, Anion Gap 7, BUN 9, Creatinine 0.89, Estim Creat Clear Calc 103.93, Est GFR (MDRD) Af Amer 110, Est GFR (MDRD) Non-Af 91, BUN/Creatinine Ratio 10.1, Glucose 160 H, Calcium 8.7 Current Medications Albuterol Sulfate (Ventolin Aerosols) 2.5 mg INHALATION Q2H PRN PRN PRN Reason: SHORTNESS OF BREATH Albuterol/Ipratropium (Duoneb) 3 ml INHALATION Q4HWA.RT [facility] Last Admin: 12/12/19 11:10 Dose: 3 ml Documented by: Aspirin (Aspirin, Baby) [facility] Last Admin: 12/12/19 08:16 Dose: 81 mg Documented by: Famotidine (Pepcid) 20 mg PO DAILY [facility] Last Admin: 12/12/19 08:17 Dose: 20 mg Documented by: Folic Acid (Folic Acid) 1 mg PO DAILY@0800 [facility] Stop: 12/14/19 08:01 Last Admin: 12/12/19 08:16 Dose: 1 mg Documented by: Sodium Chloride () 250 mls @ 15 mls/hr IV .[id number] PRN PRN Reason: Saline Flush Sodium Chloride () 250 mls @ 15 mls/hr IV .[id number] PRN PRN Reason: Additional IVPB Infusion Sodium Chloride () 1,000 mls @ 100 mls/hr IV .Q10H [facility] Last Infusion: 12/12/19 12:00 Dose: Infused Documented by: Levothyroxine Sodium (Synthroid) 200 mcg PO DAILY@0600 [facility] Last Admin: 12/12/19 05:42 Dose: 200 mcg Documented by: Lorazepam (Ativan) 2 mg PO Q2H PRN PRN; Protocol PRN Reason: CIWA score > 8 but <15 Lorazepam (Ativan) 2 mg PO UD PRN; Protocol PRN Reason: CIWA score >/=15. Lorazepam (Ativan) 2 mg IV Q2H PRN PRN; Protocol PRN Reason: CIWA score > 8 but <15 Lorazepam (Ativan) 2 mg IV UD PRN; Protocol PRN Reason: CIWA score >/=15. Meclizine HCl (Antivert) 25 mg PO TID PRN PRN PRN Reason: vertigo Last Admin: 12/11/19 13:05 Dose: 25 mg Documented by: Melatonin (Melatonin) 3 mg PO QHS [facility] Last Admin: 12/11/19 22:10 Dose: 3 mg Documented by: Methylprednisolone (Solu-Medrol) 40 mg IV Q8 [facility] Last Admin: 12/12/19 05:42 Dose: 40 mg Documented by: Multivitamins/Minerals (Multivitamin With Minerals (Bkc)) [facility] Last Admin: 12/12/19 08:16 Dose: 1 tablet Documented by: Nutritional Formula (Lactose Free) (Ensure Enlive) 120 ml PO 4X/DAY [facility] Last Admin: 12/12/19 08:33 Dose: Not Given Documented by: Sodium Chloride () 10 - 40 ml IV UD PRN PRN Reason: SALINE FLUSH Last Admin: 12/11/19 16:45 Dose: 10 ml Documented by: Thiamine HCl (Vitamin B1) 100 mg PO BIDCM [facility] Stop: 12/14/19 08:01 Last Admin: 12/12/19 08:16 Dose: 100 mg Documented by: Addendum: Dr. Goff I personally examined the patient and reviewed the chart. I agree with the above. 64-year-old male who presents from home last night into this morning with ongoing fatigue, weakness, difficulty walking as well as vertigo presyncope and a cough. The cough is nonproductive and his COVID test was negative. CTA was negative even though his d-dimer was elevated to 1.89. There was no signs of significant pulmonary disease. However on exam he does have wheezing and he is a smoker though is never been diagnosed with COPD. He is feeling better with IV fluids and with the breathing treatments, and he states that he has not been eating or drinking well over the last several days therefore it is likely that the presyncope/vertigo is secondary to dehydration and his COPD. This morning he is feeling much better even then yesterday afternoon when I saw him. He thinks that the breathing treatments and the steroids have made a significant difference. We will plan to discharge him on prednisone as well as meclizine as needed. I also recommend that he follow-up with pulmonology as an outpatient for PFTs, he did sampler pickup prescription the day before presenting to the hospital for albuterol. I discussed with him the risks and benefits of going home and he expressed understanding. OBSV E&M: 28032 Observation care discharge
--- NOTE | 2019-12-12 11:43 | CASEMGMT ---
Per Torie RIOS, pt would like a WW at discharge. Pt states that he did get a WW thru insurance about a year ago s/p surgery but that he gave that walker to his sister. Advised pt that insurance will not pay for another walker at this time and pt voices understanding, but would like to know how much it would cost through [employer]. Call to [place] at [facility] and he states that out of pocket for WW will be around $63. Pt notified and he states he just walked up and down halls with therapy and he felt great and states no longer feels that he needs a walker at this time. Pt states no further concerns/needs at this time. Aurelio RIOS CM
--- NOTE | 2019-12-12 12:01 | PHA.DC.MC ---
Pharmacy Service has performed discharge medication reconciliation and counseling for this patient. The patient's discharge medication list was reviewed for discrepancies and discrepancies were resolved. The patient was counseled on the following discharge medications and changes in medications for homegoing were reviewed. 1. PREDNISONE: TAPER 2. MECLIZINE: 25MG PO TID PRN The Reason for Use, instructions for use, and potential side effects were reviewed for all new medications. The patient's questions regarding all of their medications were answered. The patient was able to verbally demonstrate an understanding of their discharge medications. Home Medications Levothyroxine Sodium [Synthroid] 200 mcg PO DAILY 03/10/16 Multivitamin [Multiple Vitamins] 1 each PO DAILY 08/21/18 Albuterol Inhaler [Ventolin Hfa] 1 - 2 puff INHALATION Q4H PRN PRN #1 inhaler 12/11/19 Aspirin [Aspirin, Baby] 81 mg PO DAILY 12/11/19 Famotidine [Pepcid] 20 mg PO DAILY 12/11/19 Ustekinumab [Stelara] 90 mg SQ UD 12/11/19 Meclizine HCl [Antivert] 25 mg PO TID PRN PRN #30 tab 12/12/19 Prednisone See Taper PO DAILY #30 tab 12/12/19
--- NOTE | 2019-12-12 12:19 | CASEMGMT ---
Social Work SW met with pt in room and introduced role of SW. SW discussed alcohol use with pt who states he has not drank recently but did do a lot of drinking while in [place] with his girlfriend. Pt initially denies alcohol problem but after some conversation pt does admit that he may have some issues with alcohol. Pt was accepting of written information from [facility], a new day and comprehensive list of addiction services. Pt inquired about what he would have to do and SW explained the [facility] program and showed him the phone number to call. Pt stating he will consider once home. Pt stating his sister and daughter have expressed concerns about him as well. EDILMA Stanton
== END 2019-12-12 11:23 | disposition home or self-care (01) ==
LOC: ED 07:20 → PCU 12-12 07:21
PROVIDERS: Nurse Practitioner Family; Admitting Provider Family Medicine; Emergency Provider Emergency Medicine; PCP Family Medicine; Visit Provider Family Medicine
DX: R55 Syncope and collapse (principal); R06.00 Dyspnea, unspecified; R42 Dizziness and giddiness; K21.9 Gastro-esophageal reflux disease without esophagitis; E03.9 Hypothyroidism, unspecified; L40.9 Psoriasis, unspecified; Z79.899 Other long term (current) drug therapy; Z79.82 Long term (current) use of aspirin; I07.1 Rheumatic tricuspid insufficiency; F17.210 Nicotine dependence, cigarettes, uncomplicated; F10.10 Alcohol abuse, uncomplicated
CPT/HCPCS: 70450; 71275; 80048; 80307; 80320; 83880; 84484; 85025; 85379; 87633; 87635; 93005; 93306; 94640; 96361; 96374; 96376; 97162; 97166; 97530; 97802; 99218; 99285; 99406; G2023; J7030; Q9967; A4216; G0378; G0480; U0004

== ENCOUNTER → 2019-12-20 16:59 | Outpatient (CLI) | payer MEDICARE, OTHER, SELFPAY ==
[2019-12-11 10:48] VITALS: BMI 22.9
--- NOTE | 2019-12-20 17:02 | CT_ITS ---
HISTORY: RENAL MASS ADDITIONAL HISTORY: None provided. TECHNIQUE: CT images were obtained of the abdomen with 100mL Isovue-370 IV contrast. Enteric contrast was not given. A radiation dose optimization technique was used for this scan. Number of images including paperwork: 425 COMPARISON: CTA chest 12/11/2019 FINDINGS: LOWER THORAX: No consolidation or pleural effusion. LIVER: 7 mm right lobe hepatic cyst. GALLBLADDER: Cholecystectomy. BILE DUCTS: No significant biliary dilatation. SPLEEN: Unremarkable. PANCREAS: Unremarkable. ADRENAL GLANDS: Unremarkable. KIDNEYS/URETERS: Left upper pole renal lesion measures 3 x 3.1 cm on series 2 image 31 with mean density of 40-45 HU. The density is unchanged on delayed images and similar to the density on previous chest CT.. Precontrast images not available. BOWEL: No bowel obstruction. No significant bowel wall thickening. No localized inflammation. APPENDIX: No evidence of appendicitis. FREE FLUID: No significant free fluid. FREE AIR: None. LYMPH NODES: No pathologic appearing adenopathy. PERITONEUM, RETROPERITONEUM AND MESENTERY: Otherwise unremarkable. VASCULATURE: Atherosclerotic calcification. ABDOMINAL WALL: Unremarkable. OSSEOUS AND SOFT TISSUE STRUCTURES: No acute skeletal findings. CT/Abdomen WITH IV Contrast IMPRESSION: Left renal lesion does not change in density between initial and delayed postcontrast images, compatible with a mildly complex benign cyst (Bosniak 2). Individualized dose optimization techniques were used for this CT. at 0730 Reported and signed by: Marilyn Heath MD Electronically Signed: Marilyn Heath MD at 7:30 EDT Tel , Service support ,
== END ==
PROVIDERS: PCP Family Medicine; Visit Provider Family Medicine
DX: N28.89 Other specified disorders of kidney and ureter (principal)
CPT/HCPCS: 74160; Q9967

== ENCOUNTER → 2020-01-31 15:36 | Outpatient (CLI) | payer MEDICARE, OTHER, SELFPAY ==
[2019-12-11 10:48] VITALS: BMI 22.9
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
== END ==
PROVIDERS: PCP Family Medicine; Referring Provider Family Medicine; Visit Provider Family Medicine
DX: S69.90XA Unspecified injury of unspecified wrist, hand and finger(s), initial encounter (principal)
CPT/HCPCS: 73140

== ENCOUNTER → 2020-04-29 14:31 | Outpatient (CLI) | payer MEDICARE, OTHER, SELFPAY ==
[2019-12-11 10:48] VITALS: BMI 22.9
[2020-04-29 17:39] LABS: Absolute Lymphocyte Count 1.35 X10^3/uL (0.83-4.51); Absolute Neutrophil Count 5.1 X10^3/uL (2.0-7.7); Basophil# 0.07 X10^3/uL; Basophil% 0.9 % (0-1); Eosinophils% 3.8 % (0-5); Hematocrit 47.7 % (40-54); Hemoglobin 15.7 g/dL (13.0-16.5); Lymphocyte # 1.35 X10^3/ul (4.0); Lymphocyte % 17.1 % (19-41); Mean Corp Hgb Conc 32.9 g/dL (32-36); Mean Corpuscular Hgb 33.1 pg (27.0-32.0); Mean Corpuscular Volume 100.4 fL (80-94); Mean Platelet Vol. 9.6 fl (6.2-12.0); Monocyte# 0.99 X10^3/uL; Monocyte% 12.6 % (0-10); NRBC Flagged by Analyzer 0 % (0-5); Neutrophil # 5.13 X10^3/uL (2.7-7.7); Neutrophil % 65.1 % (47-70); Platelet Count 324 K/mm3 (150-450); RBC Distribution Width CV 12.2 % (11.6-14.6); RBC Distribution Width SD 46.1 fl (35.1-43.9); Red Blood Count 4.75 M/mm3 (4.6-6.2); White Blood Count 7.9 K/mm3 (4.4-11.0)
[2020-04-29 18:34] LABS: AST(SGOT) 74 U/L (15-37); Alanine Aminotransfer ALT/SGPT 85 U/L (16-61); Albumin, Serum 3.4 g/dL (3.2-5.0); Alkaline Phosphatase 91 U/L (45-117); Bilirubin, Direct 0.42 mg/dL (0.00-0.30); Globulin 4.2 g/dL (2.2-4.2); Protein, Total 7.6 g/dL (6.4-8.2)
== END ==
PROVIDERS: PCP Family Medicine; Referring Provider Family Medicine; Visit Provider Dermatology
DX: L40.8 Other psoriasis (principal); L29.8 Other pruritus; Z79.899 Other long term (current) drug therapy
CPT/HCPCS: 36415; 80076; 85025; 86480

== ENCOUNTER → 2020-07-03 15:20 | Outpatient (CLI) | payer MEDICARE, OTHER, SELFPAY ==
[2019-12-11 10:48] VITALS: BMI 22.9
[2020-07-06 16:07] LABS: QNTFERON TB Mitogen Value > 10.00 IU/mL (.); QNTFERON TB Nil Value 0.03 IU/mL (.); QNTFERON TB1+ Ag Value 0.04 IU/mL (.); QNTFERON TB2+ Ag Value 0.04 IU/mL (.)
[2020-07-07 21:00] LABS: QNTIFERON TB Positive Criteria Negative (Negative)
== END ==
PROVIDERS: PCP Family Medicine; Referring Provider Family Medicine; Visit Provider Dermatology
DX: L40.8 Other psoriasis (principal); L29.8 Other pruritus; Z79.899 Other long term (current) drug therapy
CPT/HCPCS: 86480

== ENCOUNTER → 2020-10-17 14:18 | Outpatient (CLI) | payer MEDICARE, OTHER, SELFPAY ==
[2019-12-11 10:48] VITALS: BMI 22.9
[2020-10-17 17:29] LABS: Absolute Neutrophil Count 4.9 X10^3/uL (2.0-7.7); Basophil# 0.03 X10^3/uL; Basophil% 0.4 % (0-1); Eosinophil# 0.26 X10^3/uL; Eosinophils% 3.8 % (0-5); Hematocrit 49.4 % (40-54); Hemoglobin 16.7 g/dL (13.0-16.5); Lymphocyte % 15.9 % (19-41); Mean Corp Hgb Conc 33.8 g/dL (32-36); Mean Corpuscular Hgb 34.1 pg (27.0-32.0); Mean Corpuscular Volume 100.8 fL (80-94); Mean Platelet Vol. 9.9 fl (6.2-12.0); Monocyte# 0.58 X10^3/uL; Monocyte% 8.4 % (0-10); NRBC Flagged by Analyzer 0 % (0-5); Neutrophil # 4.91 X10^3/uL (2.7-7.7); Neutrophil % 70.9 % (47-70); Platelet Count 206 K/mm3 (150-450); RBC Distribution Width CV 12.8 % (11.6-14.6); RBC Distribution Width SD 48.1 fl (35.1-43.9); White Blood Count 6.9 K/mm3 (4.4-11.0)
[2020-10-17 17:58] LABS: ALB/GLOB Ratio 0.7 RATIO (0.9-2.4); AST(SGOT) 339 U/L (15-37); Alanine Aminotransfer ALT/SGPT 219 U/L (16-61); Albumin, Serum 2.9 g/dL (3.2-5.0); Alkaline Phosphatase 97 U/L (45-117); Anion Gap 5 (5-15); BUN 10 mg/dL (7-18); BUN/Creat Ratio 13.9 RATIO (10-20); Calcium,Total 8.9 mg/dL (8.5-10.1); Chloride 91 mmol/L (98-107); Creatinine, Serum 0.72 mg/dL (0.70-1.30); EST Glomerular Filtration Rate 116 mL/min (>60); Est Glom Filt Rate - Afr Amer 141 mL/min (>60); Free T3 1.6 pg/mL (2.18-3.98); Globulin 4.1 g/dL (2.2-4.2); Glucose 82 mg/dL (74-106); Potassium 3.9 mmol/L (3.5-5.1); Sodium Level 125 mmol/L (136-145); T4 Free Direct 1.02 ng/dL (0.76-1.46); Thyroid Stim Hormone (TSH) 0.59 uIU/mL (0.358-3.74)
== END ==
PROVIDERS: PCP Family Medicine; Referring Provider Family Medicine; Visit Provider Family Medicine
DX: E03.9 Hypothyroidism, unspecified (principal); R63.4 Abnormal weight loss
CPT/HCPCS: 36415; 80053; 84439; 84443; 84481; 85025

== ENCOUNTER → 2020-10-23 11:26 | Outpatient (CLI) | payer MEDICARE, OTHER, SELFPAY ==
[2019-12-11 10:48] VITALS: BMI 22.9
[2020-10-23 13:08] LABS: ALB/GLOB Ratio 0.7 RATIO (0.9-2.4); AST(SGOT) 86 U/L (15-37); Alanine Aminotransfer ALT/SGPT 195 U/L (16-61); Albumin, Serum 2.8 g/dL (3.2-5.0); Alkaline Phosphatase 83 U/L (45-117); Anion Gap 2 (5-15); BUN 8 mg/dL (7-18); BUN/Creat Ratio 10.1 RATIO (10-20); Calcium,Total 8.6 mg/dL (8.5-10.1); Chloride 98 mmol/L (98-107); Creatinine, Serum 0.79 mg/dL (0.70-1.30); EST Glomerular Filtration Rate 104 mL/min (>60); Est Glom Filt Rate - Afr Amer 125 mL/min (>60); Globulin 4.2 g/dL (2.2-4.2); Glucose 73 mg/dL (74-106); Potassium 4.2 mmol/L (3.5-5.1); Sodium Level 131 mmol/L (136-145)
== END ==
PROVIDERS: PCP Family Medicine; Referring Provider Family Medicine; Visit Provider Family Medicine
DX: R79.89 Other specified abnormal findings of blood chemistry (principal)
CPT/HCPCS: 36415; 80053

== ENCOUNTER → 2020-12-19 15:18 | Outpatient (CLI) | payer MEDICARE, OTHER, SELFPAY ==
[2019-12-11 10:48] VITALS: BMI 22.9
[2020-12-19 17:40] LABS: AST(SGOT) 49 U/L (15-37); Alanine Aminotransfer ALT/SGPT 56 U/L (16-61); Albumin, Serum 3.1 g/dL (3.2-5.0); Alkaline Phosphatase 91 U/L (45-117); Bilirubin, Direct 0.44 mg/dL (0.00-0.30); GGTP 49 U/L (15-85); Globulin 4.5 g/dL (2.2-4.2); Protein, Total 7.6 g/dL (6.4-8.2)
[2020-12-21 14:07] LABS: ANTINUCLEAR ANTIBODIES DIRECT Negative (Negative)
[2020-12-21 14:25] LABS: Alpha Antitrypsin Serum 138 mg/dL (101-187)
[2020-12-22 14:08] LABS: HEPATITIS B SURFACE AG Negative (Negative); Hepatitis A AB, Total Negative (Negative); Hepatitis A IgM Antibody Negative (Negative); Hepatitis B Core AB IgM Negative (Negative); Hepatitis B Core Ab Total Negative (Negative); Hepatitis C Ab <0.1 s/co ratio (0.0-0.9)
[2020-12-22 14:48] LABS: AFP, Tumor Marker 2.1 ng/mL (0.0-8.3); Anti-Smooth Muscle ABS 21 Units (0-19); Ceruloplasmin 28.3 mg/dL (16.0-31.0); Hep B Surface Antibodies Non Reactive (.)
== END ==
PROVIDERS: PCP Family Medicine; Referring Provider Family Medicine; Visit Provider Internal Medicine Gastroenterology
DX: B18.2 Chronic viral hepatitis C (principal)
CPT/HCPCS: 36415; 80076; 82103; 82105; 82390; 82977; 83516; 86038; 86704; 86705; 86706; 86708; 86709; 86803; 87340

== ENCOUNTER → 2020-12-25 07:41 | Outpatient (CLI) | payer MEDICARE, OTHER, SELFPAY ==
[2019-12-11 10:48] VITALS: BMI 22.9
--- NOTE | 2020-12-25 07:53 | US_ITS ---
STUDY: ABDOMINAL ULTRASOUND - RIGHT UPPER QUADRANT REASON FOR VISIT: Male, 65 years old Hepatis, fatty LIVER,STEATOPATITIS TECHNIQUE: Ultrasound evaluation of the right upper quadrant was performed with real-time and static gao-scale imaging. TECHNICAL QUALITY: Adequate. COMPARISON: Comparison is made with prior CT scan of the abdomen dated 12/20/2019. FINDINGS: Liver: The liver measures 14.8 cm. There is increased echogenicity consistent with fatty infiltration. The bile ducts are within normal limits. There is hepatic color flow. The direction of portal flow is hepatopetal. There is no demonstrated mass lesion. Gallbladder: The patient is status post cholecystectomy. Common Bile Duct (C.B.D.): The common bile duct measures 3.4 mm. Pancreas: There is nonvisualization of the pancreas due to overlying bowel gas. Right Kidney: Normal size of the right kidney. The right kidney measures 10.6 cm x 4.8 cm x 5 cm. Normal renal cortex. The right cortex measures 1.4 cm. There is no demonstrated renal mass or cyst. There is no right hydronephrosis. IMPRESSION: Fatty infiltration of the liver. Electronically Signed: Sami Bess MD at 10:31 EDT , Service support , STUDY: ABDOMINAL ULTRASOUND - ELASTOGRAPHY REASON FOR VISIT: Male, 65 years old. Fatty infiltration of the liver. Hepatitis. TECHNIQUE: Liver stiffness measurements were obtained on a [employer] 85 ultrasound machine using a CA 1-7 probe following the SRU guidelines. 3 measurements were obtained using a 2-D-SWE method. The IQR/M was 7% suggesting a quality data set. TECHNICAL QUALITY: Adequate. COMPARISON: Comparison is made with prior sonogram of the right upper quadrant done earlier in the day. FINDINGS: Liver: Fatty infiltration of the liver. Median liver stiffness measured 9.4 kPa. US/Abdomen Limited IMPRESSION: Liver stiffness measures 9.4 kPa compatible with F3 Metavir score. This is suggestive of compensated advanced chronic liver disease. Electronically Signed: Sami Bess MD at 10:36 EDT , Service support ,
== END ==
PROVIDERS: PCP Family Medicine; Referring Provider Internal Medicine Gastroenterology; Visit Provider Internal Medicine Gastroenterology
DX: K75.89 Other specified inflammatory liver diseases (principal)
CPT/HCPCS: 76705; 76981

== ENCOUNTER → 2021-05-22 14:20 | Outpatient (CLI) | payer MEDICARE, OTHER, SELFPAY ==
[2021-05-22 17:41] LABS: Absolute Lymphocyte Count 1.11 X10^3/uL (0.83-4.51); Absolute Neutrophil Count 5.4 X10^3/uL (2.0-7.7); Basophil# 0.04 X10^3/uL; Basophil% 0.5 % (0-1); Eosinophil# 0.29 X10^3/uL; Eosinophils% 3.7 % (0-5); Hematocrit 52.6 % (40-54); Lymphocyte # 1.11 X10^3/ul (0.83-4.51); Lymphocyte % 14.3 % (19-41); Mean Corp Hgb Conc 35.4 g/dL (32-36); Mean Corpuscular Hgb 34.9 pg (27.0-32.0); Mean Corpuscular Volume 98.7 fL (80-94); Monocyte# 0.92 X10^3/uL; Monocyte% 11.9 % (0-10); NRBC Flagged by Analyzer 0 % (0-5); Neutrophil # 5.35 X10^3/uL (2.7-7.7); Neutrophil % 69.1 % (47-70); Platelet Count 206 K/mm3 (150-450); RBC Distribution Width CV 12.1 % (11.6-14.6); RBC Distribution Width SD 43.8 fl (35.1-43.9); Red Blood Count 5.33 M/mm3 (4.6-6.2); White Blood Count 7.8 K/mm3 (4.4-11.0)
[2021-05-22 18:20] LABS: Differential Indicated SCAN CRITERIA MET
[2021-05-22 18:27] LABS: ALB/GLOB Ratio 0.5 RATIO (0.9-2.4); AST(SGOT) 170 U/L (15-37); Alanine Aminotransfer ALT/SGPT 90 U/L (16-61); Albumin, Serum 2.4 g/dL (3.2-5.0); Alkaline Phosphatase 126 U/L (45-117); Anion Gap 9 (5-15); BUN 2 mg/dL (7-18); BUN/Creat Ratio 3.1 RATIO (10-20); Calcium,Total 8.5 mg/dL (8.5-10.1); Chloride 92 mmol/L (98-107); Creatinine, Serum 0.66 mg/dL (0.70-1.30); EST Glomerular Filtration Rate 129 mL/min (>60); Est Glom Filt Rate - Afr Amer 156 mL/min (>60); Free T3 4.3 pg/mL (2.18-3.98); Globulin 4.6 g/dL (2.2-4.2); Glucose 91 mg/dL (74-106); Potassium 3.2 mmol/L (3.5-5.1); Sodium Level 129 mmol/L (136-145); T4 Free Direct 2.31 ng/dL (0.76-1.46); Thyroid Stim Hormone (TSH) < 0.01 uIU/mL (0.358-3.74)
[2021-05-22 19:24] LABS: Hemoglobin 18.6 g/dL (13.0-16.5); Platelet Estimate ADEQUATE (ADEQ); Red Cell Morphology NORM C+C NORMAL (NORM C&C)
[2021-05-26 13:12] LABS: Pathologist Review Reviewed
== END ==
PROVIDERS: PCP Family Medicine; Referring Provider Family Medicine; Visit Provider Family Medicine
DX: E03.9 Hypothyroidism, unspecified (principal); R11.0 Nausea
CPT/HCPCS: 36415; 80053; 84439; 84443; 84481; 85025

== ENCOUNTER → 2021-05-29 14:23 | Outpatient (CLI) | payer MEDICARE, OTHER, SELFPAY ==
--- NOTE | 2021-05-29 14:26 | CT_ITS ---
STUDY: LOW DOSE CT LUNG CANCER SCREENING REASON FOR EXAM: Male, 65 years old. Long-term smoking history, one half pack per day x30 years RADIATION DOSAGE (If Supplied By Facility): CTDIvol = ( 3.02 ) mGy, DLP = ( 113.62 ) mGycm TECHNIQUE: No contrast was administered. Low dose technique was utilized (average mAS-38 and kVp 120). 1.25 mm axial source images with a slice interval of 1.25-mm were reconstructed in lung windows. 2.5 mm axial source images with a slice interval of 2.5-mm were reconstructed in lung windows. 5.0 mm axial source images with a slice interval of 5.0-mm were reconstructed in soft tissue windows. Nodule measured using lung windows on PACS and/or independent workstation with automated measurement of minimum and maximum diameter. Nodule measurement reported as average diameter rounded to the nearest whole number. Growth is defined as an increase ins size of greater than 1.5 mm. COMPARISON: None. FINDINGS: Lung windows show chronic interstitial changes in both lung virk without a superimposed infiltrate, suspicious groundglass opacifications, noncalcified mass or nodule. Soft tissue windows show normal-appearing thyroid gland. No suspicious axillary or mediastinal adenopathy. There is borderline aneurysmal dilatation of the ascending thoracic aorta at 4.01 cm. No pleural or pericardial effusions. Bony structures show degenerative change. There is a stable left upper pole lesion measuring [address]/Low Dose CT Lung Screening IMPRESSION: Lung-RADS category 2 - Continue annual screening with LDCT in 12 months. IMPORTANT NOTES FOR USE: ACR Lung-RADS Version 1.1 Assessment Categories Release Date: 2018 Category: Coded 0-4 bases on nodule(s) with highest degree of suspicion. Negative screen is defined as categories 1 and 2; a positive screen is defined as categories 3 and 4. Category 3 and 4A nodules that are unchanged on interval CT should be coded as category 2, and individuals returned to screening in 12 months. Category 4X: Category 3 or 4 nodules with additional imaging findings that increase the suspicion of lung cancer, such as spiculation, GGN that doubles in size in 1 year, enlarged lymph notes, etc. Category Modifiers: S (significant finding unrelated to lung cancer) Electronically Signed: Khanh Forde MD at 17:27 EST , Service support ,
== END ==
PROVIDERS: PCP Family Medicine; Referring Provider Family Medicine; Visit Provider Family Medicine
DX: Z12.2 Encounter for screening for malignant neoplasm of respiratory organs (principal); Z87.891 Personal history of nicotine dependence
CPT/HCPCS: 71271

== ENCOUNTER → 2021-06-01 14:12 | Outpatient (CLI) | payer MEDICARE, OTHER, SELFPAY ==
--- NOTE | 2021-06-01 14:21 | MRI_ITS ---
STUDY: MRI ABDOMEN WITH AND WITHOUT CONTRAST REASON FOR EXAM: Male, 65 years old. LIVER FIBROSIS -- ATTENTION: LIVER TECHNIQUE: Standardized fat and water weighted pulse sequences were obtained in all 3 orthogonal planes post contrast administration. IV dotarem 18ml was administered for the contrast portion of the examination. COMPARISON: None. FINDINGS: The visualized lung bases are unremarkable. The visualized portions of the heart are within normal limits. Smooth contour of the liver. There is a marked decrease in the signal intensity of the liver on the axial T1-weighted images on the opposed-phase images as compared to the in-phase images, consistent with diffuse steatosis. There are surgical clips in the gallbladder fossa consistent with a prior cholecystectomy. Normal spleen. Normal pancreas. Normal bilateral adrenal glands. Normal right kidney. Nonenhancing 3.4 cm T1 hyperintense/T2 isointense cyst in the upper pole of the left kidney. Normal visualized stomach. Normal small intestine. Normal colon. Normal abdominal aorta. Normal inferior vena cava. Normal retroperitoneum. Normal abdominal wall. Normal osseous structures. MRI/MRI Abd WITH and W/O Contrast IMPRESSION: Severe hepatic steatosis. No suspicious enhancing mass. 3.4 cm proteinaceous cyst in the upper pole the left kidney. Electronically Signed: Nate Abdullahi MD at 21:33 EST Tel , Service support ,
== END ==
PROVIDERS: PCP Family Medicine; Visit Provider Internal Medicine Gastroenterology
DX: K74.00 Hepatic fibrosis, unspecified (principal)
CPT/HCPCS: 74183; A9575

== ENCOUNTER 2021-08-10 05:32 | Emergency (ER) | payer MEDICARE, OTHER, SELFPAY ==
[2021-08-10 05:33] VITALS: BP 126/76; PULSE 89; RESP 17; TEMP 36.8; O2SAT 96; BMI 20.6
--- NOTE | 2021-08-10 06:13 | EKG12_ITS ---
Test Reason : SOB Blood Pressure : / mmHG Vent. Rate : 074 BPM Atrial Rate : 074 BPM P-R Int : 188 ms QRS Dur : 084 ms QT Int : 394 ms P-R-T Axes : 080 003 054 degrees QTc Int : 437 ms Sinus rhythm with Premature atrial complexes Otherwise normal ECG Confirmed by DENAE RAMOS, ELENI ([id number]), supervising editor news reel KAREN VALENTE ([id number]) on 08/11/2021 9:54:17 AM Referred By: HEATHER Confirmed By:ELENI PHILIPPE MD
--- NOTE | 2021-08-10 06:13 | CT_ITS ---
EXAM: CT HEAD WITHOUT INTRAVENOUS CONTRAST : 1955 CLINICAL INDICATION: dizziness TECHNIQUE: Multiple axial images were obtained of the head without intravenous contrast. This CT exam was performed using one or more of the following dose reduction techniques: automated exposure control, adjustment of the mA and/or kV according to patient size, and/or use of iterative reconstruction technique. This report was created using [employer] report generation technology. COMPARISON: 12/11/19 FINDINGS: BRAIN AND EXTRA-AXIAL SPACES: Unremarkable. No intra- or extra-axial hemorrhage. No evidence of acute infarct. No intracranial mass or mass effect. There is preservation of the gao/white matter interface. Posterior fossa structures are unremarkable. Ventricles are appropriate for age. No hydrocephalus. Basal cisterns are patent. BONES/JOINTS: Unremarkable. No discrete lytic or blastic abnormalities. SINUSES: Unremarkable as visualized. Clear. MASTOID AIR CELLS: Unremarkable. Clear. ORBITS: Visualized globes, extraocular muscles, optic nerves and retrobulbar fat appear unremarkable. CT/Brain/Head without Contrast IMPRESSION: Negative head/brain CT without intravenous contrast. Individualized dose optimization techniques were used for this CT. at 0717 Reported and signed by: Avi Shaw MD Electronically Signed: Avi Shaw MD at 7:16 EST Tel , Service support ,
--- NOTE | 2021-08-10 06:14 | RAD_ITS ---
EXAM: XR CHEST, 1 VIEW : 1955 CLINICAL INDICATION: cough TECHNIQUE: Frontal view of the chest. This report was created using [employer] report generation technology. COMPARISON: None. FINDINGS: LUNGS AND PLEURAL SPACES: Unremarkable. No consolidation or edema. No pneumothorax. No effusion. HEART: Unremarkable. Cardiac silhouette not enlarged. MEDIASTINUM: Central airways and mediastinal contour are unremarkable. BONES/JOINTS: Unremarkable. SOFT TISSUES: Unremarkable. RAD/Chest 1 View (Portable) IMPRESSION: No radiographic evidence of acute cardiopulmonary disease. at 0655 Reported and signed by: Avi Shaw MD Electronically Signed: Avi Shaw MD at 6:55 EST Tel , Service support ,
--- NOTE | 2021-08-10 06:18 | EDS_ITS ---
HPI History of Present Illness Chief Complaint: Shortness of Breath Narrative Narrative: 65-year-old male presenting with multiple complaints. He states that over the last 6 months he has lost about 60 pounds. He states he is just not eating and does not have an appetite. Patient states that he is not having nausea or vomiting. He was chronic positional vertigo and is on meclizine chronically and it stopped working as well. He states he is reported this to Dr. Whaley and Dr. Whaley tells him to take it 3 times a day. Patient also reports that he has been feeling short of breath for the last 2 weeks. He states he is a smoker. He does not report any fever, chills. He has a mild cough intermittently. He denies chest pain or cardiac history. He does have a history of syncope. Patient reports that after he saw Dr. Whaley he saw Dr. Arndt who told him he had some cirrhosis but nothing acute. Patient states that this morning he was so dizzy and weak that he fell. He states he was unable to get up off of the floor but then was able to pull himself up over the couch. He called EMS for transport. He states he has both lightheaded and feels like he is spinning. Patient does also report that his thyroid numbers were off and he was instructed to take 200 mcg every other day of the Synthroid and this is half the dose that he was on before. Apparently his T3 or T4 numbers were high. Patient does not have these retested. He states this was done by Dr. Whaley. [facility] Medical History GERD (gastroesophageal reflux disease) Hypothyroidism Vertigo Home Medications levothyroxine [Synthroid] See Rx Instructions .ROUTE .COMPLEX 03/10/16 [History Last Taken 08/30/18 05:00] multivitamin [Multiple Vitamins] 1 ea PO DAILY 08/21/18 [History Last Taken Unknown] albuterol sulfate 1 - 2 puff INHALATION Q4H PRN PRN #1 inhaler 12/11/19 [Rx Last Taken Unknown] aspirin 81 mg PO DAILY 12/11/19 [History Last Taken Unknown] famotidine 20 mg PO DAILY 12/11/19 [History Last Taken Unknown] ustekinumab 90 mg SQ UD 12/11/19 [History Last Taken 11/27/19] meclizine 25 mg PO TID PRN PRN #30 tab 12/12/19 [Rx Last Taken Unknown] omeprazole 20 mg PO BID 08/10/21 [History Last Taken Unknown] prednisone 50 mg PO DAILY 5 Days #25 tab 08/10/21 [Rx Last Taken Unknown] Allergy/AdvReac Type Severity Reaction Status Date / Time codeine AdvReac Intermediate Upset Verified 08/10/21 05:43 Stomach Social History Smoking Status: Current every day smoker tobacco type: cigarettes ROS ROS ED ROS Narrative Generalized weakness Constitutional Constitutional ED: Denies chills or fever(s) ENT ENT ED: Denies rhinorrhea or sore throat Cardiovascular Cardiovascular: Denies chest pain Respiratory/Chest Respiratory/Chest: Reports cough and dyspnea Gastrointestinal Gastrointestinal: Reports nausea; Denies abdominal pain, constipation, diarrhea or vomiting Genitourinary Genitourinary ED: Reports dysuria and hematuria Musculoskeletal Musculoskeletal: Denies arthralgias, back pain, myalgias or neck pain Integumentary Denies rash Neurologic Neurologic: Denies headache(s), paresthesias or weakness Psychiatric Psychiatric: Denies anxiety or depression EXAM Physical Exam Const Vital Signs: 08/10/21 05:33 08/10/21 05:47 08/10/21 06:32 Temperature 98.2 F Temperature Source Oral Pulse Rate 89 82 Pulse Rate [Lying] Pulse Rate [Sitting] Pulse Rate [Standing] Respiratory Rate 17 13 Respiratory Pattern Normal Normal Blood Pressure 126/76 H Blood Pressure [Lying] Blood Pressure [Sitting] Blood Pressure [Standing] Blood Pressure Mean 92 Blood Pressure Mean [Lying] Blood Pressure Mean [Sitting] Blood Pressure Mean [Standing] Pulse Ox 96 Oxygen Delivery Method Room Air 08/10/21 07:26 Temperature Temperature Source Pulse Rate Pulse Rate [Lying] 93 Pulse Rate [Sitting] 93 Pulse Rate [Standing] 107 H Respiratory Rate Respiratory Pattern Blood Pressure Blood Pressure [Lying] 90/69 Blood Pressure [Sitting] 97/68 Blood Pressure [Standing] 101/80 Blood Pressure Mean Blood Pressure Mean [Lying] 76 Blood Pressure Mean [Sitting] 77 Blood Pressure Mean [Standing] 87 Pulse Ox Oxygen Delivery Method Positive well nourished General Appearance ED: NAD HEENT Reports head/scalp atraumatic atraumatic Eyes PERRL and EOMs intact bilaterally Neck full ROM Chest Wall inspection of chest normal and palpation of chest normal Resp normal respiratory effort Auscultation: wheezes scattered wheezes Cardio regular rhythm Rate: regular rate GI normal to inspection, nondistended, normoactive bowel sounds Back/Spine normal to inspection Extremity normal to inspection and full ROM General Extremety ED: Negative for deformity or tenderness General Extremity: Negative for deformity Neuro oriented x3, CN's II-XII intact bilaterally, moves all extremities, no focal motor deficits and no sensory deficits noted Sensorium / Orientation: alert Psych mental status grossly normal and thought process normal Skin no rashes or lesions noted, No skin turgor normal and No no jaundice MDM MDM MDM Narrative Medical decision making narrative: Patient presenting with multiple complaints. In regards to his vertiginous dizziness I am able to reproduce dizziness and nystagmus with modified Kennedy-Hallpike. Since his meclizine is not working I did give him Valium. EKG on my interpretation shows a sinus rhythm with a ventricular to 74 bpm without sign of ischemic change. CBC shows no leukocytosis or anemia. Platelets are normal. Patient does have an elevated total bilirubin at 2.5 however this is stable. Direct bilirubin is 1.22. AST 118, ALT 73. Patient reports history of cirrhosis. His numbers have not changed dramatically. Chest x-ray on my interpretation shows no acute cardiopulmonary process and the radiologist does agree. D-dimer is negative at 0.52 after age adjustment. EtOH negative. TSH is elevated at 30.5 and this was undetectable in May. Free T4 is back down into range at 0.82 and this was 2.5 in May. T3 is slightly low at 1.4. Patient was checked for orthostatics and these are negative. Patient able to stand without difficulty. The nurse reports that he was able to stand and use the urinal without any difficulty. Given patient's ultimately negative work-up I did speak with Dr. Whaley who stated that the patient was a long-term drinker and stated that he m ay want detox. Patient is not hypertensive or tachycardic. I did go back and evaluate the patient and he states that he is not requesting detox. Since the patient was wheezing I will put him on a prednisone burst. He states he has an albuterol inhaler at home. He is given return precautions for all symptoms. Impression: 1. Generalized weakness 2. Vertigo 3. COPD exacerbation 4. History of cirrhosis 5. Fall Lab Data Labs: Laboratory Results - last 24 hr 08/10/21 08/10/21 08/10/21 05:55 05:55 05:55 WBC RBC Hgb Hct MCV MCH MCHC RDW Std Deviation RDW Coeff of Keysha Plt Count MPV Immature Gran % (Auto) Neut % (Auto) Lymph % (Auto) [place] % (Auto) Eos % (Auto) Baso % (Auto) Absolute Neuts (auto) Absolute Lymphs (auto) Nucleated RBC % D-Dimer Quant (PE/DVT) 0.52 H* Sodium 128 L Potassium 3.8 Chloride 91 L Carbon Dioxide 30.0 Anion Gap 7 BUN 5 L Creatinine 0.72 Estim Creat Clear Calc 82.23 Est GFR (MDRD) Af Amer 141 Est GFR (MDRD) Non-Af 116 BUN/Creatinine Ratio 7.0 L Glucose 95 Calcium 8.5 Total Bilirubin Cancelled 2.50 H Direct Bilirubin Cancelled 1.22 H AST Cancelled 118 H ALT Cancelled 73 H Alkaline Phosphatase Cancelled 99 Troponin I High Sens 5 Total Protein Cancelled 6.7 Albumin Cancelled 2.4 L Globulin Cancelled 4.3 H Albumin/Globulin Ratio 0.6 L TSH 30.50 H Free T4 0.82 Free T3 pg/dL Ethyl Alcohol 08/10/21 08/10/21 08/10/21 05:55 05:55 05:55 WBC 5.0 RBC 4.27 L Hgb 15.4 Hct 44.1 MCV 103.3 H MCH 36.1 H MCHC 34.9 RDW Std Deviation 58.5 H RDW Coeff of Keysha 15.3 H Plt Count 161 MPV 9.8 Immature Gran % (Auto) 0.200 Neut % (Auto) 64.2 Lymph % (Auto) 22.3 [place] % (Auto) 10.9 H Eos % (Auto) 2.0 Baso % (Auto) 0.4 Absolute Neuts (auto) 3.2 Absolute Lymphs (auto) 1.12 Nucleated RBC % 0 D-Dimer Quant (PE/DVT) Sodium Potassium Chloride Carbon Dioxide Anion Gap BUN Creatinine Estim Creat Clear Calc Est GFR (MDRD) Af Amer Est GFR (MDRD) Non-Af BUN/Creatinine Ratio Glucose Calcium Total Bilirubin Direct Bilirubin AST ALT Alkaline Phosphatase Troponin I High Sens Total Protein Albumin Globulin Albumin/Globulin Ratio TSH Free T4 Free T3 pg/dL 1.4 L Ethyl Alcohol < 3.0 Radiography Diagnostic Testing: Clinical Impression(s) from Imaging Studies Brain CT 08/10/21 06:13 IMPRESSION: Negative head/brain CT without intravenous contrast. Individualized dose optimization techniques were used for this CT. at 0717 Reported and signed by: Avi Shaw MD Electronically Signed: Avi Shaw MD at 7:16 EST Tel , Service support , Chest X-Ray 08/10/21 06:14 IMPRESSION: No radiographic evidence of acute cardiopulmonary disease. at 0655 Reported and signed by: Avi Shaw MD Electronically Signed: Avi Shaw MD at 6:55 EST Tel , Service support , Discharge Plan Triage Chief Complaint: Shortness of Breath Other Complaint: Nausea/Vomiting ED Provider: Janak Chavez Dx/Rx/DC Orders Instructions: BPPV, ED COPD Flare, ED Weakness (Uncertain Cause), ED Fall Prevention Prescriptions: New prednisone 10 mg tablet 50 mg PO DAILY 5 Days Qty: 25 RF: 0 No Action levothyroxine [Synthroid] 200 MCG tablet See Rx Instructions .ROUTE .COMPLEX RF: 0 multivitamin [Multiple Vitamins] 1 EACH tablet 1 ea PO DAILY RF: 0 ustekinumab 90 MG/ML syringe 90 mg SQ UD RF: 0 albuterol sulfate 1 INHALER inhaler 1 - 2 puff inhalation Q4H PRN PRN (Reason: Wheezing) Qty: 1 RF: 0 famotidine 20 MG tablet 20 mg PO DAILY RF: 0 aspirin 81 MG tablet,chewable 81 mg PO DAILY RF: 0 meclizine 25 MG tablet 25 mg PO TID PRN PRN (Reason: vertigo) Qty: 30 RF: 0 omeprazole 20 mg Capsule,Delayed Release(Dr/Ec) 20 mg PO BID RF: 0 Primary Care Provider: Hebert Whaley Referrals: Hebert Whaley MD [Primary Care Provider] - Disposition Disposition: Home, Self Care
[2021-08-10] MEDS: Albuterol 2.5 MG/3 ML VIAL.NEB. INHALATION (06:24)
[2021-08-10] MEDS: Ipratropium/Albuterol Sulfate 3 ML AMPUL.NEB INHALATION (06:24)
[2021-08-10] MEDS: diazePAM 2 MG Tablet PO (06:26)
[2021-08-10] MEDS: MethylPREDNISolone 125 MG/2 ML Vial IV (06:26)
[2021-08-10 06:31] LABS: Absolute Lymphocyte Count 1.12 X10^3/uL (0.83-4.51); Absolute Neutrophil Count 3.2 X10^3/uL (2.0-7.7); Basophil# 0.02 X10^3/uL; Basophil% 0.4 % (0-1); Hematocrit 44.1 % (40-54); Hemoglobin 15.4 g/dL (13.0-16.5); Lymphocyte # 1.12 X10^3/ul (0.83-4.51); Lymphocyte % 22.3 % (19-41); Mean Corp Hgb Conc 34.9 g/dL (32-36); Mean Corpuscular Hgb 36.1 pg (27.0-32.0); Mean Corpuscular Volume 103.3 fL (80-94); Mean Platelet Vol. 9.8 fl (6.2-12.0); Monocyte# 0.55 X10^3/uL; Monocyte% 10.9 % (0-10); NRBC Flagged by Analyzer 0 % (0-5); Neutrophil # 3.23 X10^3/uL (2.7-7.7); Neutrophil % 64.2 % (47-70); Platelet Count 161 K/mm3 (150-450); RBC Distribution Width CV 15.3 % (11.6-14.6); RBC Distribution Width SD 58.5 fl (35.1-43.9); Red Blood Count 4.27 M/mm3 (4.6-6.2)
[2021-08-10 06:32] VITALS: PULSE 82; RESP 13
[2021-08-10 06:47] LABS: D-Dimer Quantitative (DVT/PE) 0.52 FEU/ug/m (0.27-0.49)
[2021-08-10 06:58] LABS: ALB/GLOB Ratio 0.6 RATIO (0.9-2.4); AST(SGOT) 118 U/L (15-37); Alanine Aminotransfer ALT/SGPT 73 U/L (16-61); Albumin, Serum 2.4 g/dL (3.2-5.0); Alkaline Phosphatase 99 U/L (45-117); Anion Gap 7 (5-15); BUN 5 mg/dL (7-18); Bilirubin, Direct 1.22 mg/dL (0.00-0.30); Calcium,Total 8.5 mg/dL (8.5-10.1); Chloride 91 mmol/L (98-107); Creatinine, Serum 0.72 mg/dL (0.70-1.30); EST Glomerular Filtration Rate 116 mL/min (>60); Est Glom Filt Rate - Afr Amer 141 mL/min (>60); Estimated Creatinine Clearance 82.23 ml/min; Globulin 4.3 g/dL (2.2-4.2); Glucose 95 mg/dL (74-106); Potassium 3.8 mmol/L (3.5-5.1); Protein, Total 6.7 g/dL (6.4-8.2); Sodium Level 128 mmol/L (136-145); T4 Free Direct 0.82 ng/dL (0.76-1.46); Troponin-I HS 5 pg/mL (3.0-78.0)
[2021-08-10 07:06] LABS: Alcohol, Blood (Medical)-Serum < 3.0 mg/dL
[2021-08-10 07:26] VITALS: BP 101/80; BP 90/69; BP 97/68; PULSE 107; PULSE 93
[2021-08-10 07:43] LABS: Free T3 1.4 pg/mL (2.18-3.98)
[2021-08-10 08:03] VITALS: BP 96/68; PULSE 88; RESP 23; O2SAT 95
== END 2021-08-10 08:12 | disposition home or self-care (01) ==
PROVIDERS: Emergency Provider Student in an Organized Health Care Education/Training Program; PCP Family Medicine; Visit Provider Student in an Organized Health Care Education/Training Program
DX: H81.10 Benign paroxysmal vertigo, unspecified ear (principal); K74.60 Unspecified cirrhosis of liver; J44.1 Chronic obstructive pulmonary disease with (acute) exacerbation; F17.210 Nicotine dependence, cigarettes, uncomplicated; Z79.899 Other long term (current) drug therapy; W19.XXXA Unspecified fall, initial encounter; Y93.9 Activity, unspecified; Y92.9 Unspecified place or not applicable; E03.9 Hypothyroidism, unspecified; Z79.82 Long term (current) use of aspirin; K21.9 Gastro-esophageal reflux disease without esophagitis
CPT/HCPCS: 70450; 71045; 80053; 82077; 82248; 84439; 84443; 84481; 84484; 85025; 85379; 87426; 93005; 94640; 96374; 99285; A4216

== ENCOUNTER 2021-10-07 11:39 | Outpatient (CLI) | payer MEDICARE, OTHER, SELFPAY ==
[2021-10-07 15:10] LABS: Absolute Lymphocyte Count 1.43 X10^3/uL (0.83-4.51); Basophil# 0.03 X10^3/uL; Basophil% 0.4 % (0-1); Eosinophil# 0.09 X10^3/uL; Eosinophils% 1.1 % (0-5); Hemoglobin 15.5 g/dL (13.0-16.5); Lymphocyte # 1.43 X10^3/ul (0.83-4.51); Lymphocyte % 17.3 % (19-41); Mean Corp Hgb Conc 34.4 g/dL (32-36); Mean Corpuscular Hgb 37.7 pg (27.0-32.0); Mean Corpuscular Volume 109.5 fL (80-94); Mean Platelet Vol. 9.7 fl (6.2-12.0); Monocyte% 8.5 % (0-10); NRBC Flagged by Analyzer 0 % (0-5); Neutrophil # 5.95 X10^3/uL (2.7-7.7); Platelet Count 274 K/mm3 (150-450); RBC Distribution Width CV 13.8 % (11.6-14.6); RBC Distribution Width SD 56.3 fl (35.1-43.9); Red Blood Count 4.11 M/mm3 (4.6-6.2); White Blood Count 8.3 K/mm3 (4.4-11.0)
[2021-10-07 15:30] LABS: ALB/GLOB Ratio 0.6 RATIO (0.9-2.4); AST(SGOT) 51 U/L (15-37); Alanine Aminotransfer ALT/SGPT 44 U/L (16-61); Albumin, Serum 2.3 g/dL (3.2-5.0); Alkaline Phosphatase 108 U/L (45-117); Anion Gap 8 (5-15); BUN 4 mg/dL (7-18); BUN/Creat Ratio 6.2 RATIO (10-20); Calcium,Total 8.6 mg/dL (8.5-10.1); Chloride 97 mmol/L (98-107); Creatinine, Serum 0.65 mg/dL (0.70-1.30); EST Glomerular Filtration Rate 131 mL/min (>60); Est Glom Filt Rate - Afr Amer 158 mL/min (>60); Globulin 3.8 g/dL (2.2-4.2); Glucose 72 mg/dL (74-106); Potassium 3.8 mmol/L (3.5-5.1); Protein, Total 6.1 g/dL (6.4-8.2); Sodium Level 133 mmol/L (136-145)
== END 2021-10-07 23:59 | disposition home or self-care (01) ==
LOC: MFPLAB 11:40
PROVIDERS: PCP Family Medicine; Referring Provider Family Medicine; Visit Provider Family Medicine
DX: R19.7 Diarrhea, unspecified (principal)
CPT/HCPCS: 36415; 80053; 85025

== ENCOUNTER → 2021-12-01 | Outpatient (CLI) | payer MEDICARE, OTHER, SELFPAY ==
--- NOTE | 2021-12-01 10:06 | MRI_ITS ---
STUDY: MRI BRAIN WITH AND WITHOUT CONTRAST (ATTENTION INTERNAL AUDITORY CANALS - I.A.C.''s) REASON FOR EXAM: Male, 66 years old. ATAXIA, dizziness TECHNIQUE: Standardized multiplanar fat and water weighted pulse sequences were obtained. 17ml IV Dotarem was administered for the contrast portion of the examination. COMPARISON: CT 08/10/2021 FINDINGS: Normal bilateral temporal bones. Normal bilateral internal auditory canals. There is no demonstrated intracanalicular or cisternal vestibular schwannoma (acoustic neuroma). There is no enhancement of the bilateral VIIth or VIIIth cranial nerves. Normal bilateral cochlea, vestibules and semicircular canals. Normal size of the ventricles and extra-axial spaces for the patient''s age. Normal white matter tracts of the supratentorial brain. There is no evidence for recent intracranial ischemia or other cause of cytotoxic edema on diffusion weighted imaging (DWI). Normal bilateral basal ganglia. Normal thalami. Normal flow voids within the major intracranial circulation suggesting patency by spin echo criteria. Normal venous enhancement. There is no enhancing intra-axial or extra-axial abnormality. There is no extra-axial fluid accumulation. Normal sella turcica, pituitary gland, infundibular stalk, optic chiasm and hypothalamus. Normal tectal plate and pineal gland. Normal midbrain, keysha and medulla. Normal cerebellum. Normal basal cisterns. No demonstrated orbital abnormality, within the constraints of a routine brain study. Normal visualized paranasal sinuses. Normal calvarium and skull base. Normal visualized soft tissue structures. Normal visualized upper cervical spine. MRI/Brain W/WO Contrast IMPRESSION: Normal unenhanced and enhanced MRI of the bilateral internal auditory canals (I.A.C''s). Electronically Signed: Renato Grubbs MD at 14:02 EDT ,
[2021-12-01 10:21] LABS: CREATININE FINGERSTICK < 0.9 mg/dL (0.70-1.30); EGFR FINGERSTICK > 60.0000 mL/min (>60)
== END | disposition home or self-care (01) ==
LOC: MRI 10:00
PROVIDERS: PCP Family Medicine; Referring Provider Otolaryngology Otolaryngology/Facial Plastic Surgery; Visit Provider Otolaryngology Otolaryngology/Facial Plastic Surgery
DX: R27.0 Ataxia, unspecified (principal)
CPT/HCPCS: 70553; A9575

== ENCOUNTER 2022-01-06 16:45 | Observation (INO) | payer MEDICARE, OTHER, SELFPAY ==
[2022-01-06] VITALS (8 sets, daily range): BP systolic 103–125; BP diastolic 76–85; PULSE 71–90; RESP 13–21; TEMP 36.2–36.7; O2SAT 95–99; BMI 20.1; BMI 19.6
--- NOTE | 2022-01-06 17:23 | CT_ITS ---
STUDY: CT BRAIN WITHOUT CONTRAST REASON FOR EXAM: Male, 66 years old. ataxia RADIATION DOSAGE (If Supplied By Facility): CTDIvol = ( 44.99 ) mGy, DLP = ( 779.24 ) mGycm TECHNIQUE: Transaxial CT imaging of the brain was performed without administration of intravenous contrast material. Individualized dose optimization techniques were used for this CT. COMPARISON: No relevant priors. FINDINGS: There is no intra-/extra-axial fluid collection, mass effect, or midline shift. The gao/white matter junction is preserved. Hypoattenuation of periventricular and subcortical white matter suggestive of chronic small vessel ischemic disease. Mild diffuse parenchymal volume loss is noted. There is vascular calcification. The basal cisterns are patent. An air-fluid level is seen in the left medullary sinus. Other visualized paranasal sinuses and mastoid air cells are clear. The calvarium is intact. CT/Brain/Head without Contrast IMPRESSION: No acute intracranial finding. MRI may be obtained if clinically indicated Electronically Signed: Bill Valverde MD at 17:56 EDT ,
--- NOTE | 2022-01-06 17:24 | EKG12_ITS ---
Test Reason : CHEST PAIN Blood Pressure : / mmHG Vent. Rate : 084 BPM Atrial Rate : 084 BPM P-R Int : 180 ms QRS Dur : 082 ms QT Int : 384 ms P-R-T Axes : 082 -02 060 degrees QTc Int : 453 ms Normal sinus rhythm Normal ECG Confirmed by TABBY RAMOS, LAURA ([id number]), publication editor KAREN VALENTE ([id number]) on 01/08/2022 11:36:42 AM Referred By: ASHLEY Confirmed By:LAURA MCNAIR MD
[2022-01-06] MEDS: Aspirin 325 MG Tablet PO (17:30)
[2022-01-06] MEDS: diazePAM 5 MG Tablet PO (17:30)
--- NOTE | 2022-01-06 17:36 | ED.VIS.CHEST ---
HPI History of Present Illness Chief Complaint: Chest Pain Informant: patient Narrative Narrative: 66-year-old male presenting to the emergency room for the evaluation of chest pain. He states that beginning today he would have a epigastric lower chest midsternal pain. He describes it as burning and sharp and pressure. This brought on by exertion when he goes to the bathroom and is associated with shortness of breath. He states that it last about an hour and then resolves. He also states he has been having vertigo for the past 6 days. He is a long-term smoker and feels like he needs a breathing treatment. [facility] Medical History GERD (gastroesophageal reflux disease) Hypothyroidism Vertigo Home Medications levothyroxine 200 mcg tablet (Synthroid) See Rx Instructions .Route .COMPLEX THYROID 03/10/16 [History Last Taken 08/30/18 05:00] multivitamin (Multiple Vitamins) 1 ea PO DAILY SUPPLEMENT 08/21/18 [History Last Taken Unknown] albuterol sulfate 90 mcg/actuation aerosol inhaler 1 - 2 puff inhalation Q4H PRN PRN Wheezing ##1 12/11/19 [Rx Last Taken Unknown] aspirin 81 mg chewable tablet 81 mg PO DAILY heart health 12/11/19 [History Last Taken Unknown] famotidine 20 mg tablet 20 mg PO DAILY GERD 12/11/19 [History Last Taken Unknown] ustekinumab 90 mg/mL subcutaneous syringe 90 mg SQ UD 12/11/19 [History Last Taken 11/27/19] meclizine 25 mg tablet 25 mg PO TID PRN PRN vertigo #30 tabs 12/12/19 [Rx Last Taken Unknown] omeprazole 20 mg capsule,delayed release 20 mg PO BID 08/10/21 [History Last Taken Unknown] Allergy/AdvReac Type Severity Reaction Status Date / Time codeine AdvReac Intermediate Upset Verified 01/06/22 16:48 Stomach Social History Smoking Status: Current every day smoker tobacco type: cigarettes ROS ROS ED Constitutional Constitutional ED: Denies chills or weight loss Eyes Eyes: Denies change in vision or diplopia ENT ENT ED: Denies ear pain, rhinorrhea or sore throat Cardiovascular Cardiovascular: Reports chest pain; Denies orthopnea, palpitations or racing heartbeat Respiratory/Chest Respiratory/Chest: Reports cough and dyspnea; Denies orthopnea Gastrointestinal Gastrointestinal: Reports abdominal pain; Denies diarrhea, nausea or vomiting Genitourinary Genitourinary ED: Denies dysuria, hematuria or urinary frequency Musculoskeletal Musculoskeletal: Denies arthralgias or myalgias Integumentary Denies abscess or rash Neurologic Neurologic: Reports other Details: Vertigo ; Denies headache(s) or weakness Psychiatric Psychiatric: Denies anxiety, depression, suicidal ideation or suicidal thoughts Endocrine Endocrinology: Denies polydipsia, polyphagia or polyuria Allergic/Immunologic Allergic/Immunologic ED: Denies mouth swelling, tongue swelling or urticaria EXAM Physical Exam Const Vital Signs: 01/06/22 16:45 01/06/22 16:49 01/06/22 17:48 Temperature 97.1 F L Temperature Source Temporal Pulse Rate 90 76 Respiratory Rate 20 H 13 Respiratory Effort Short of Breath Respiratory Pattern Normal Blood Pressure 114/83 H Blood Pressure Mean 93 Pulse Ox 95 Oxygen Delivery Method Room Air 01/06/22 18:13 01/06/22 19:00 Temperature Temperature Source Pulse Rate 73 79 Respiratory Rate 21 H 16 Respiratory Effort Respiratory Pattern Blood Pressure 103/76 120/85 H Blood Pressure Mean 85 96 Pulse Ox 97 99 Oxygen Delivery Method Room Air Room Air Positive well nourished and well developed General Appearance ED: well developed HEENT Reports normocephalic, head/scalp atraumatic and moist mucous membranes Eyes PERRL and EOMs intact bilaterally Neck no lymphadenopathy, supple and no JVD Resp normal respiratory effort Auscultation: wheezes Cardio regular rate, regular rhythm and no murmurs GI normal to inspection, nondistended, normoactive bowel sounds and non-tender Palpation: soft Back/Spine no CVA tenderness and normal ROM Extremity normal to inspection General Extremety ED: Negative for edema General Extremity: Negative for edema Neuro oriented x3 and CN's II-XII intact bilaterally Sensorium / Orientation: alert Motor Exam: strength 5/5 throughout Psych mental status grossly normal Mood & Affect: Negative for depressed or tearful Skin no rashes or lesions noted and no wounds MDM MDM MDM Narrative Medical decision making narrative: 2 sets of cardiac enzymes are negative. My interpretation of the chest x-ray is no acute process. CT the brain is negative for acute. Received reading treatment. We also administered aspirin and diazepam for his. He was able to ambulate a few steps before turning around stating that he could not continue. Because of the patient's inability to ambulate did not improve with diazepam I will speak with the hospitalist regarding admission Lab Data Attestation: I reviewed the patient's lab results. Labs: Laboratory Results - last 24 hr 01/06/22 01/06/22 01/06/22 16:53 16:53 19:02 WBC 5.6 RBC 4.19 L Hgb 15.5 Hct 42.5 MCV 101.4 H MCH 37.0 H MCHC 36.5 H RDW Std Deviation 55.7 H RDW Coeff of Keysha 15.1 H Plt Count MPV 11.6 Immature Gran % (Auto) 0.400 Neut % (Auto) 59.8 Lymph % (Auto) 26.7 [place] % (Auto) 10.9 H Eos % (Auto) 1.8 Baso % (Auto) 0.4 Absolute Neuts (auto) 3.4 Absolute Lymphs (auto) 1.49 Nucleated RBC % 0 Differential Comment SCANNED Platelet Estimate SLT DEC Sodium 124 L Potassium 3.8 Chloride 87 L Carbon Dioxide 28.0 Anion Gap 9 BUN 6 L Creatinine 0.69 L Estim Creat Clear Calc 79.10 Est GFR (MDRD) Af Amer 147 Est GFR (MDRD) Non-Af 122 BUN/Creatinine Ratio 8.7 L Glucose 85 Calcium 8.6 Total Bilirubin 2.70 H AST 110 H ALT 64 H Alkaline Phosphatase 82 Troponin I High Sens 3 4 Total Protein 6.9 Albumin 2.7 L Globulin 4.2 Albumin/Globulin Ratio 0.6 L Radiography Diagnostic Testing: Clinical Impression(s) from Imaging Studies Brain CT 01/06/22 17:23 IMPRESSION: No acute intracranial finding. MRI may be obtained if clinically indicated Electronically Signed: Bill Valverde MD at 17:56 EDT , Chest X-Ray 01/06/22 17:37 IMPRESSION: No acute findings in the chest. Electronically Signed: Cecil Pollock MD at 18:31 EDT , Discharge Plan Triage Chief Complaint: Chest Pain ED Provider: Mahad Peralta Dx/Rx/DC Orders Prescriptions: No Action levothyroxine [Synthroid] 200 MCG tablet See Rx Instructions .ROUTE .COMPLEX Rx Instructions: 200 mcg orally every other day multivitamin [Multiple Vitamins] 1 EACH tablet 1 ea PO DAILY ustekinumab 90 MG/ML syringe 90 mg SQ UD Rx Instructions: every 3 months albuterol sulfate 1 INHALER inhaler 1 - 2 puff inhalation Q4H PRN PRN (Reason: Wheezing) Qty: 1 0RF famotidine 20 MG tablet 20 mg PO DAILY aspirin 81 MG tablet,chewable 81 mg PO DAILY meclizine 25 MG tablet 25 mg PO TID PRN PRN (Reason: vertigo) Qty: 30 0RF omeprazole 20 mg Capsule,Delayed Release(Dr/Ec) 20 mg PO BID Primary Care Provider: Hebert Whaley Referrals: Hebert Whaley MD [Primary Care Provider] -
--- NOTE | 2022-01-06 17:37 | RAD_ITS ---
EXAM: XR CHEST, 1 VIEW CLINICAL INDICATION: chest pain TECHNIQUE: Frontal view of the chest. This report was created using [employer] report generation technology. COMPARISON: 08/10/2021 FINDINGS: LUNGS AND PLEURAL SPACES: Unremarkable. No consolidation or edema. No pneumothorax. No effusion. HEART: Unremarkable. Cardiac silhouette not enlarged. MEDIASTINUM: Central airways and mediastinal contour are unremarkable. BONES/JOINTS: Unremarkable. SOFT TISSUES: Unremarkable. VASCULATURE: Atherosclerotic calcifications of the nonenlarged thoracic aorta. RAD/Chest 1 View (Portable) IMPRESSION: No acute findings in the chest. Electronically Signed: Cecil Pollock MD at 18:31 EDT ,
[2022-01-06 17:42] LABS: Absolute Lymphocyte Count 1.49 X10^3/uL (0.83-4.51); Absolute Neutrophil Count 3.4 X10^3/uL (2.0-7.7); Basophil# 0.02 X10^3/uL; Basophil% 0.4 % (0-1); Eosinophils% 1.8 % (0-5); Hematocrit 42.5 % (40-54); Hemoglobin 15.5 g/dL (13.0-16.5); Lymphocyte # 1.49 X10^3/ul (0.83-4.51); Lymphocyte % 26.7 % (19-41); Mean Corp Hgb Conc 36.5 g/dL (32-36); Mean Corpuscular Volume 101.4 fL (80-94); Mean Platelet Vol. 11.6 fl (6.2-12.0); Monocyte# 0.61 X10^3/uL; Monocyte% 10.9 % (0-10); NRBC Flagged by Analyzer 0 % (0-5); Neutrophil # 3.35 X10^3/uL (2.7-7.7); Neutrophil % 59.8 % (47-70); POSITIVE COUNT YES; RBC Distribution Width CV 15.1 % (11.6-14.6); RBC Distribution Width SD 55.7 fl (35.1-43.9); Red Blood Count 4.19 M/mm3 (4.6-6.2); White Blood Count 5.6 K/mm3 (4.4-11.0)
[2022-01-06 17:45] LABS: Differential Indicated SCAN CRITERIA MET
[2022-01-06] MEDS: Ipratropium/Albuterol Sulfate 3 ML AMPUL.NEB INHALATION (17:45)
[2022-01-06 18:15] LABS: ALB/GLOB Ratio 0.6 RATIO (0.9-2.4); AST(SGOT) 110 U/L (15-37); Alanine Aminotransfer ALT/SGPT 64 U/L (16-61); Albumin, Serum 2.7 g/dL (3.2-5.0); Alkaline Phosphatase 82 U/L (45-117); Anion Gap 9 (5-15); BUN 6 mg/dL (7-18); BUN/Creat Ratio 8.7 RATIO (10-20); Calcium,Total 8.6 mg/dL (8.5-10.1); Chloride 87 mmol/L (98-107); Creatinine, Serum 0.69 mg/dL (0.70-1.30); EST Glomerular Filtration Rate 122 mL/min (>60); Est Glom Filt Rate - Afr Amer 147 mL/min (>60); Globulin 4.2 g/dL (2.2-4.2); Glucose 85 mg/dL (74-106); Potassium 3.8 mmol/L (3.5-5.1); Protein, Total 6.9 g/dL (6.4-8.2); Sodium Level 124 mmol/L (136-145); Troponin-I HS 3 pg/mL (3.0-78.0)
[2022-01-06 18:47] LABS: Differential Comment SCANNED; Platelet Estimate SLT DEC (ADEQ)
[2022-01-06 19:36] LABS: Troponin-I HS 4 pg/mL (3.0-78.0)
[2022-01-06] MEDS: Meclizine HCl 25 MG Tablet PO (20:57)
--- NOTE | 2022-01-06 21:45 | HP.PCM.HOS_ITS ---
HPI - General General Date of Admission: 01/06/22 Date of Service: 01/06/22 Chief Complaint: vertigo. chest pain HPI Narrative ABBASI BREECE, is a 66 M who presents with dizziness. Dizziness has been ongoing for 6 days and has been ongoing despite doing his own Kalani maneuvers as well as taking meclizine. Patient does have a history of vertigo and has been evaluated for this in the past with MRIs. Typically his symptoms only last for couple days and then go away. But this has been persistent. Was been ongoing, he is but nauseated and not eating and drinking much. He presented here just because he is not feeling any better. Patient also started developing chest pain with exertion that began today. Does feel short of breath with this as well. He has never had symptoms like this before. Patient was evaluated emergency room and his work-up was unremarkable though he did have a sodium of 124. [facility] Medical History GERD (gastroesophageal reflux disease) Hypothyroidism Vertigo Home Medications levothyroxine 200 mcg tablet (Synthroid) See Rx Instructions .Route .COMPLEX THYROID 03/10/16 [History Last Taken 08/30/18 05:00] multivitamin (Multiple Vitamins) 1 ea PO DAILY SUPPLEMENT 08/21/18 [History Last Taken Unknown] albuterol sulfate 90 mcg/actuation aerosol inhaler 1 - 2 puff inhalation Q4H PRN PRN Wheezing ##1 12/11/19 [Rx Last Taken Unknown] aspirin 81 mg chewable tablet 81 mg PO DAILY heart health 12/11/19 [History Last Taken Unknown] famotidine 20 mg tablet 20 mg PO DAILY GERD 12/11/19 [History Last Taken Unknown] ustekinumab 90 mg/mL subcutaneous syringe 90 mg SQ UD 12/11/19 [History Last Taken 11/27/19] meclizine 25 mg tablet 25 mg PO TID PRN PRN vertigo #30 tabs 12/12/19 [Rx Last Taken Unknown] omeprazole 20 mg capsule,delayed release 20 mg PO BID 08/10/21 [History Last Taken Unknown] Allergy/AdvReac Type Severity Reaction Status Date / Time codeine AdvReac Intermediate Upset Verified 01/06/22 16:48 Stomach Family History (Updated 01/06/22 @ 21:[address] Carlos Schmid DO) Father CAD (coronary artery disease) Social History (Updated 01/06/22 @ 21:[address] Carlos Schmid DO) Smoking Status: Light Smoker (<10/day) alcohol intake: former substance use type: does not use ROS ROS Narrative Patient states that he is pretty active until about couple months ago where he just been very fatigued overall. He does get swelling in his legs occasionally. All review of systems were negative except as mentioned above in the history of present illness and the other review of systems. Vital Signs Vital Signs Vital Signs: 01/06/22 16:45 01/06/22 16:49 01/06/22 17:48 Temperature 36.2 C L Temperature Source Temporal Pulse Rate 90 76 Respiratory Rate 20 H 13 Respiratory Effort Short of Breath Respiratory Pattern Normal Blood Pressure 114/83 H Blood Pressure Mean 93 Pulse Ox 95 Oxygen Delivery Method Room Air 01/06/22 18:13 01/06/22 19:00 01/06/22 21:02 Temperature Temperature Source Pulse Rate 73 79 Respiratory Rate 21 H 16 16 Respiratory Effort Respiratory Pattern Blood Pressure 103/76 120/85 H Blood Pressure Mean 85 96 Pulse Ox 97 99 Oxygen Delivery Method Room Air Room Air 01/06/22 21:15 Temperature 36.7 C Temperature Source Temporal Pulse Rate 73 Respiratory Rate 20 H Respiratory Effort Respiratory Pattern Blood Pressure 125/80 H Blood Pressure Mean 95 Pulse Ox 97 Oxygen Delivery Method Room Air Weight Weight: 79.1 kg Body Mass Index (BMI) 20.1 Physical Exam Const alert and no apparent distress General Appearance: cooperative HEENT normocephalic and head/scalp atraumatic Mouth: moist mucous membranes abnormal parched Eyes PERRL and EOMs intact bilaterally Eyes Narrative: Right lateral nystagmus that fatigues Neck no lymphadenopathy Neck Narrative: No thyromegaly Resp normal respiratory effort, no retractions, no use of accessory muscles and clear to auscultation bilaterally Cardio regular rate, regular rhythm, S1 normal heart sound and S2 normal heart sound GI normal to inspection, nondistended, normoactive bowel sounds, soft to palpation and non-tender Extremity normal to inspection and full ROM Neuro oriented x3, moves all extremities and no focal motor deficits Sensorium / Orientation: awake and alert Speech: speech normal Psych affect normal Results Lab / Micro Data Attestation: I reviewed the patient's lab results. Result Diagrams: 01/06/22 16:53 01/06/22 16:53 Labs: Laboratory Results - last 24 hr 01/06/22 16:53: WBC 5.6, RBC 4.19 L, Hgb 15.5, Hct 42.5, MCV 101.4 H, MCH 37.0 H , MCHC 36.5 H, RDW Std Deviation 55.7 H, RDW Coeff of Keysha 15.1 H, Plt Count , MPV 11.6, Immature Gran % (Auto) 0.400, Neut % (Auto) 59.8, Lymph % (Auto) 26.7, [place] % (Auto) 10.9 H, Eos % (Auto) 1.8, Baso % (Auto) 0.4, Absolute Neuts (auto) 3.4, Absolute Lymphs (auto) 1.49, Nucleated RBC % 0, Differential Comment SCA NNED, Platelet Estimate SLT 01/06/22 16:53: Sodium 124 L, Potassium 3.8, Chloride 87 L, Carbon Dioxide 28.0, Anion Gap 9, BUN 6 L, Creatinine 0.69 L, Estim Creat Clear Calc 79.10, Est GFR (MDRD) Af Amer 147, Est GFR (MDRD) Non-Af 122, BUN/Creatinine Ratio 8.7 L, Glucose 85, Calcium 8.6, Total Bilirubin 2.70 H, AST 110 H, ALT 64 H, Alkaline Phosphatase 82, Troponin I High Sens 3, Total Protein 6.9, Albumin 2.7 L, Globulin 4.2, Albumin/Globulin Ratio 0.6 L 01/06/22 19:02: Troponin I High Sens 4 EKG Initial EKG: Attestation: I personally reviewed and interpreted this EKG as follows: Prior EKG tracings: available for review EKG Rhythm Intrepretation: Sinus Rhythm Radiology Impression Brain CT 01/06/22 17:23 IMPRESSION: No acute intracranial finding. MRI may be obtained if clinically indicated Electronically Signed: Bill Valverde MD at 17:56 EDT , Chest X-Ray 01/06/22 17:37 IMPRESSION: No acute findings in the chest. Electronically Signed: Cecil Pollock MD at 18:31 EDT , Assessment & Plan Assessment/Plan (1) Vertigo: (2) Chest pain: (3) Hyponatremia: PLAN: Plan 1. Vertigo Patient does have a history of vertigo and is self treating with Kalani maneuvers which is more than just turning his neck and takes as needed meclizine without relief. This is all similar to his prior history of vertigo. Patient did have an MRI of his brain on December 01 that did not show any acute process. Head CT here was negative. I do not feel any additional imaging is warranted at this time as I feel that his symptoms are consistent with BPPV. Plan: * Continue with as needed meclizine * Physical therapy for vestibular rehab 2. Chest pain Sounds like stable angina the patient does have risk factors regards to his father having history of CAD and he is an active smoker though he only does smok e 2 cigarettes/day. Plan: Is to perform a nuclear stress test. 3. Hyponatremia Has had low sodium before but this is lower than the has had before. [place] lower at this time due to his dehydration Plan: * IV fluids and recheck * Check TSH, serum osmolality, urine osmolality, urine sodium and urinalysis 4. VTE prophylaxis: Not indicated given current observation status. 5. CODE STATUS addressed with the patient. Patient wishes to be full code. Charges/Coding Visit Charges OBSV E&M: 98650 Initial observation care L3
--- NOTE | 2022-01-06 21:45 | EKG12_ITS ---
Test Reason : AM EKG Blood Pressure : / mmHG Vent. Rate : 067 BPM Atrial Rate : 067 BPM P-R Int : 206 ms QRS Dur : 086 ms QT Int : 440 ms P-R-T Axes : 069 -17 057 degrees QTc Int : 464 ms Normal sinus rhythm with occasional premature ectopic complex Low voltage QRS (Limb Leads) Confirmed by TABBY RAMOS, LAURA ([id number]), multimedia editor KAREN VALENTE ([id number]) on 01/08/2022 11:42:16 AM Referred By: ARRON Confirmed By:LAURA MCNAIR MD
[2022-01-06] MEDS: 0.9% Saline Lock 10 ML Syringe IV (22:23)
[2022-01-06] MEDS: 0.9% Normal Saline 1,000 ML 150 ML IV (22:23)
[2022-01-06] MEDS: Pantoprazole Sodium 20 MG Tablet PO (23:10)
[2022-01-06 23:30] LABS: Mucous, Urine 0 SEEN /hpf (<or=2+); Red Blood Cells-Urine 0 SEEN /hpf (0-5); Squamous Epithelial Cells - UA 0 SEEN /hpf (0-5); White Blood Cells 0 SEEN /hpf (0-5)
[2022-01-06 23:33] LABS: Color, Urine Yellow (Yellow); Glucose, Dipstick Normal (Normal); Ketone-Dipstick Negative (Negative); Leukocyte Esterase-Dipstick Negative /ul (Negative); Nitrite-Dipstick Negative (Negative); Occult Blood-Urine Negative /ul (Negative); Protein-Dipstick Negative (Negative); Urine Bilirubin Dipstick Negative (Negative); Urine Clarity Clear (Clear); Urine Urobilinogen Normal (Normal)
[2022-01-06 23:36] LABS: Urine Sodium 25 mmol/L (Not Establ.)
[2022-01-06 23:41] LABS: Bacteria RARE /hpf (None Seen)
[2022-01-07] VITALS (9 sets, daily range): BP systolic 100–120; BP diastolic 73–87; PULSE 63–82; RESP 16–20; TEMP 36.6–36.7; O2SAT 94–98
[2022-01-07 00:13] LABS: Osmolality, Urine 110 mOsm/KG
[2022-01-07 04:46] LABS: Osmolality, Serum 270 mOsm/KG (280-301)
[2022-01-07 04:52] LABS: Troponin-I HS 5 pg/mL (3.0-78.0)
[2022-01-07 05:04] LABS: Anion Gap 5 (5-15); BUN 5 mg/dL (7-18); BUN/Creat Ratio 8.2 RATIO (10-20); Calcium,Total 8.1 mg/dL (8.5-10.1); Chloride 96 mmol/L (98-107); Cholesterol 106 mg/dL (200); Creatinine, Serum 0.61 mg/dL (0.70-1.30); EST Glomerular Filtration Rate 140 mL/min (>60); Est Glom Filt Rate - Afr Amer 169 mL/min (>60); Glucose 83 mg/dL (74-106); High Density Lipoprotein 63 mg/dL; Potassium 3.4 mmol/L (3.5-5.1); Sodium Level 131 mmol/L (136-145); Triglycerides 47 mg/dL; Very Low Density Lipoprotein 9 mg/dL (5-40)
--- NOTE | 2022-01-07 05:55 | EKG12_ITS ---
Test Reason : CP ADMISSION Blood Pressure : / mmHG Vent. Rate : 065 BPM Atrial Rate : 065 BPM P-R Int : 206 ms QRS Dur : 080 ms QT Int : 424 ms P-R-T Axes : 064 -18 057 degrees QTc Int : 440 ms Normal sinus rhythm Normal ECG Confirmed by TABBY RAMOS, LAURA ([id number]), art editor KAREN VALENTE ([id number]) on 01/08/2022 11:42:28 AM Referred By: ARRON Confirmed By:LAURA MCNAIR MD
[2022-01-07] MEDS: Aspirin 81 MG TAB.CHEW PO (06:12)
[2022-01-07 07:41] LABS: Magnesium 1.6 mg/dL (1.6-2.6)
[2022-01-07] MEDS: Famotidine 20 MG Tablet PO (11:49)
[2022-01-07] MEDS: Pantoprazole Sodium 20 MG Tablet PO (11:49)
[2022-01-07] MEDS: Multivitamins,Therapeutic Tablet 1 TABLET PO (11:50)
[2022-01-07] MEDS: Albuterol 2.5 MG/3 ML VIAL.NEB. INHALATION (12:07)
--- NOTE | 2022-01-07 13:17 | STRESSREP_ITS ---
Stress Test Report Pharmacologic/Lexiscan myocardial perfusion stress test. Indication; 66-year-old patient with symptoms of chest pain on exertion and dizziness Patient had history of hypothyroidism, reactive airway disease. Stress protocol: Resting EKG demonstrates. Normal sinus rhythm. 0.4 mg of regadenoson was infused per usual protocol followed by rapid intravenous saline flush injection continuous EKG monitoring was performed. The maximum heart rate attained was 114 bpm which was 75% of maximum predicted heart . Stress EKG showed[, no significant change from the resting EKG, with maximum heart rate of 114 bpm. Arrhythmia: No arrhythmia demonstrated Symptoms: Patient had no symptoms of chest pain Blood pressure at rest: 100/62 mmHg blood pressure at the end of stress 100/62 mmHg Myocardial perfusion protocol. 12 mCi ]of Technetium 99m Sestamibi was injected at rest. [ 0.4 mg ]of Regad enoson was infused per usual protocol peak infusion 33.7 mCi ]of Technetium 99m sestamibi was injected. Stress images were obtained stress and rest images were reconstructed and compared in the short axis vertical and horizontal long axis. Gated images were also obtained Perfusion SPECT analysis: Review of the images demonstrate normal uptake of sestamibi at rest, post stress images demonstrate similar uptake of sestamibi to the resting images, homogeneous tracer uptake With no evidence of reversible myocardial ischemia. Gated SPECT analysis: The gated ejection fraction is 72%, normal LV wall motion Normal LV systolic function Conclusion: Negative Lexiscan sestamibi myocardial perfusion study for reversible myocardial ischemia Normal LV systolic function Bayron Vo MD,FACC,[facility]
--- NOTE | 2022-01-07 14:18 | DCINST_ITS ---
Discharge Instructions Diet Discharge Diet: No restrictions and 2000 mg Sodium Diet Activity Discharge Activity: Return to Normal Activity Follow Up Care Test Results: Test results from this visit will be discussed in further detail at your follow- up appointment, if applicable. Discharge Plan Admission Admit Date/Time: 01/06/22 21:35 Primary Reason for Your Visit: Chest pain, dizziness Attending Provider: Sangeeta Mae Primary Care Provider: Hebert Whaley Consulting Providers: Carlos Schmid Instructions Additional Instructions / Restrictions: You are being referred for vestibular rehab. Follow-up with your primary care doctor in the outpatient within 1 week. Discharge Orders/Prescriptions Prescriptions: Continued levothyroxine [Synthroid] 200 MCG tablet See Rx Instructions .ROUTE .COMPLEX Rx Instructions: 200 mcg orally every other day multivitamin [Multiple Vitamins] 1 EACH tablet 1 ea PO DAILY ustekinumab 90 MG/ML syringe 90 mg SQ UD Rx Instructions: every 3 months albuterol sulfate 1 INHALER inhaler 1 - 2 puff inhalation Q4H PRN PRN (Reason: Wheezing) Qty: 1 0RF famotidine 20 MG tablet 20 mg PO DAILY aspirin 81 MG tablet,chewable 81 mg PO DAILY meclizine 25 MG tablet 25 mg PO TID PRN PRN (Reason: vertigo) Qty: 30 0RF omeprazole 20 mg Capsule,Delayed Release(Dr/Ec) 20 mg PO BID Referrals / Follow Up: Hebert Whaley MD [Primary Care Provider] - In 1 Week Disposition Disposition (needs filled in before D/C Order can be placed): Home, Self Care
--- NOTE | 2022-01-07 14:19 | CASEMGMT ---
Addendum entered by Melissa Paredes 01/07/22 15:39: Per Frank, pt got a WW thru insurance in 2019 so they will not pay for another, pt aware. Pt states Oh, I forgot about that, I gave it to my sister to use and her son lost it.' Per Frank, OOP for WW would be $82 and pt is agreeable. [employer] aware and will deliver today. Pt voices no further questions/concerns/needs. Aurelio RIOS CM Original Note: Therapy is recommending vestibular therapy and WW for pt at discharge. This RN GEREMIAS to room and pt is agreeable to both. Pt would like [facility] for vestibular therapy and states no preference for DME company. Scripts obtained and faxed to [facility] and [employer]. Call to Maldonado at [employer] to notify of WW, voices understanding. Per Maldonado, they have WW that they can deliver to pt prior to d/c. Pt voices no further questions/concerns/needs. Aurelio RIOS CM
--- NOTE | 2022-01-07 14:21 | DS.PCM_ITS ---
Providers Date of Admission: 01/06/22 Date of Discharge: 01/07/22 Primary Care Physician: Dr. Hebert Whaley MD Reason For Visit: VERTIGO, CHEST PAIN Diagnosis Discharge Diagnosis (1) Vertigo: Status: Acute Code(s): R42 - Dizziness and giddiness (2) Chest pain: Status: Acute Code(s): R07.9 - Chest pain, unspecified (3) Hyponatremia: Status: Acute Code(s): E87.1 - Hypo-osmolality and hyponatremia (4) Hypokalemia: Status: Acute Code(s): E87.6 - Hypokalemia (5) Hypomagnesemia: Status: Acute Code(s): E83.42 - Hypomagnesemia Medications at Discharge Home Medications levothyroxine 200 mcg tablet (Synthroid) See Rx Instructions .Route .COMPLEX THYROID 03/10/16 multivitamin (Multiple Vitamins) 1 ea PO DAILY SUPPLEMENT 08/21/18 albuterol sulfate 90 mcg/actuation aerosol inhaler 1 - 2 puff inhalation Q4H PRN PRN Wheezing ##1 12/11/19 aspirin 81 mg chewable tablet 81 mg PO DAILY heart health 12/11/19 famotidine 20 mg tablet 20 mg PO DAILY GERD 12/11/19 ustekinumab 90 mg/mL subcutaneous syringe 90 mg SQ UD 12/11/19 meclizine 25 mg tablet 25 mg PO TID PRN PRN vertigo #30 tabs 12/12/19 omeprazole 20 mg capsule,delayed release 20 mg PO BID 08/10/21 Hospital Course Operations None Procedures Stress test Summary of Care Provided Minutes Spent on Discharge: 35 Hospital Course: 66y/o male with past medical history of GERD, chronic vertigo who comes in with dizziness ongoing for 6 days despite taking meclizine and doing Kalani maneuver. Patient also admits to feeling nauseated, and has chest pain that is worse with exertion. Patient had an MRI in November 2021 that was unremarkable. He was admitted to the progressive care unit and monitored on telemetry. Patient underwent stress test that was unremarkable. He was seen by PT and OT and given a prescription for wheeled walker as well as outpatient vestibular therapy. Patient had evidence of hypokalemia and hypomagnesemia that was replaced during this hospital stay. He will follow-up with his primary care doctor within 1 week for repeat blood work. Physical Exam Narrative Physical exam: General: Alert, Oriented x3, Cooperative, No apparent distress HEENT: Atraumatic Oral: Moist Mucosa Neck: Supple Lungs: Clear to auscultation Cardiovascular: HS I+II, regular, no murmurs Abdomen: Bowel Sounds Present, Soft, Non Tender Extremities: No edema Skin: No rashes, No breakdown Neurological: Grossly intact, no nystagmus seen Psych/Mental Status: Appropriate Weight / BMI Weight Weight: 77.1 kg Body Mass Index (BMI) 19.6 ABG / Lab / Microbiology Data Result Diagrams: 01/06/22 16:53 01/07/22 04:17 Laboratory: Laboratory Results - last 24 hr 01/06/22 16:53: WBC 5.6, RBC 4.19 L, Hgb 15.5, Hct 42.5, MCV 101.4 H, MCH 37.0 H , MCHC 36.5 H, RDW Std Deviation 55.7 H, RDW Coeff of Keysha 15.1 H, Plt Count , MPV 11.6, Immature Gran % (Auto) 0.400, Neut % (Auto) 59.8, Lymph % (Auto) 26.7, [place] % (Auto) 10.9 H, Eos % (Auto) 1.8, Baso % (Auto) 0.4, Absolute Neuts (auto) 3.4, Absolute Lymphs (auto) 1.49, Nucleated RBC % 0, Differential Comment SCANNED, Platelet Estimate SLT DEC 01/06/22 16:53: Sodium 124 L, Potassium 3.8, Chloride 87 L, Carbon Dioxide 28.0, Anion Gap 9, BUN 6 L, Creatinine 0.69 L, Estim Creat Clear Calc 79.10, Est GFR (MDRD) Af Amer 147, Est GFR (MDRD) Non-Af 122, BUN/Creatinine Ratio 8.7 L, Glucose 85, Calcium 8.6, Total Bilirubin 2.70 H, AST 110 H, ALT 64 H, Alkaline Phosphatase 82, Troponin I High Sens 3, Total Protein 6.9, Albumin 2.7 L, Globulin 4.2, Albumin/Globulin Ratio 0.6 L 01/06/22 19:02: Troponin I High Sens 4 01/06/22 23:19: Urine Color Yellow, Urine Clarity Clear, Urine pH 7.0, Ur Specific [place] 1.010, Urine Protein Negative, Urine Glucose (UA) Normal, Urine Ketones Negative, Urine Occult Blood Negative, Urine Nitrite Negative, Urine Bilirubin Negative, Urine Urobilinogen Normal, Ur Leukocyte Esterase Negative, Urine RBC 0 SEEN, Urine WBC 0 SEEN, Ur Squamous Epith Cells 0 SEEN, Urine Bacteria RARE, Urine Mucus 0 SEEN 01/06/22 23:19: Urine Osmolality 110, Ur Random Sodium 25 01/07/22 04:17: Sodium 131 L, Potassium 3.4 L, Chloride 96 L, Carbon Dioxide 30.0, Anion Gap 5, BUN 5 L, Creatinine 0.61 L, Estim Creat Clear Calc 77.10, Est GFR (MDRD) Af Amer 169, Est GFR (MDRD) Non-Af 140, BUN/Creatinine Ratio 8.2 L, Glucose 83, Calcium 8.1 L, Triglycerides 47, Cholesterol 106, LDL Cholesterol 34, VLDL Cholesterol 9, HDL Cholesterol 63, TSH 67.30 H 01/07/22 04:17: Serum Osmolality 270 L 01/07/22 04:17: Cortisol 16.30 01/07/22 04:17: Troponin I High Sens 5 01/07/22 04:17: Magnesium 1.6 Radiography Diagnostic Testing: Radiology Impression Brain CT 01/06/22 17:23 IMPRESSION: No acute intracranial finding. MRI may be obtained if clinically indicated Electronically Signed: Bill Valverde MD at 17:56 EDT , Chest X-Ray 01/06/22 17:37 IMPRESSION: No acute findings in the chest. Electronically Signed: Cecil Pollock MD at 18:31 EDT , D/C Instructions Discharge Diet: No restrictions and 2000 mg Sodium Diet Meaningful Use Info Meaningful Use Diagnoses (Choose all that apply): None applicable Discharge Plan Admission Admit Date/Time: 01/06/22 21:35 Primary Reason for Your Visit: Chest pain, dizziness Attending Provider: [place] Primary Care Provider: Hebert Whaley Consulting Providers: Carlos Schmid Instructions Additional Instructions / Restrictions: You are being referred for vestibular rehab. Follow-up with your primary care doctor in the outpatient within 1 week. Discharge Orders/Prescriptions Prescriptions: Continued levothyroxine [Synthroid] 200 MCG tablet See Rx Instructions .ROUTE .COMPLEX Rx Instructions: 200 mcg orally every other day multivitamin [Multiple Vitamins] 1 EACH tablet 1 ea PO DAILY ustekinumab 90 MG/ML syringe 90 mg SQ UD Rx Instructions: every 3 months albuterol sulfate 1 INHALER inhaler 1 - 2 puff inhalation Q4H PRN PRN (Reason: Wheezing) Qty: 1 0RF famotidine 20 MG tablet 20 mg PO DAILY aspirin 81 MG tablet,chewable 81 mg PO DAILY meclizine 25 MG tablet 25 mg PO TID PRN PRN (Reason: vertigo) Qty: 30 0RF omeprazole 20 mg Capsule,Delayed Release(Dr/Ec) 20 mg PO BID Referrals / Follow Up: Hebert Whaley MD [Primary Care Provider] - In 1 Week Disposition Disposition (needs filled in before D/C Order can be placed): Home, Self Care Charges/Coding Visit Charges OBSV E&M: 03677 Observation care discharge
[2022-01-07] MEDS: 0.9% Saline Lock 10 ML Syringe IV (15:00)
[2022-01-07] MEDS: Potassium Chloride Oral Tablet 20 MEQ 40 MEQ PO (15:00)
== END 2022-01-07 14:18 | disposition home or self-care (01) ==
LOC: ED 21:04 → PCU 21:47
PROVIDERS: Emergency Provider Emergency Medicine; PCP Family Medicine; Visit Provider Internal Medicine
DX: R07.89 Other chest pain (principal); K21.9 Gastro-esophageal reflux disease without esophagitis; E87.6 Hypokalemia; F17.210 Nicotine dependence, cigarettes, uncomplicated; E83.42 Hypomagnesemia; R26.2 Difficulty in walking, not elsewhere classified; R42 Dizziness and giddiness; E87.1 Hypo-osmolality and hyponatremia; R06.02 Shortness of breath; Z79.899 Other long term (current) drug therapy; Z79.82 Long term (current) use of aspirin; Z79.890 Hormone replacement therapy; E03.9 Hypothyroidism, unspecified; Z82.49 Family history of ischemic heart disease and other diseases of the circulatory system
CPT/HCPCS: 36415; 70450; 71045; 78452; 80048; 80053; 80061; 81001; 82533; 83735; 83930; 83935; 84300; 84443; 84484; 85025; 93005; 93017; 94640; 96360; 96361; 97162; 99218; 99251; 99284; A9500; J7030; A4216; G0378; G0463; J2785

== ENCOUNTER → 2022-05-05 | Outpatient (CLI) | payer MEDICARE, OTHER, SELFPAY ==
[2022-05-05 17:46] LABS: Absolute Lymphocyte Count 1.27 X10^3/uL (0.83-4.51); Absolute Neutrophil Count 4.1 X10^3/uL (2.0-7.7); Basophil# 0.07 X10^3/uL; Basophil% 1.1 % (0-1); Eosinophil# 0.26 X10^3/uL; Eosinophils% 4.1 % (0-5); Hematocrit 48.6 % (40-54); Hemoglobin 16.7 g/dL (13.0-16.5); Lymphocyte # 1.27 X10^3/ul (0.83-4.51); Lymphocyte % 20.1 % (19-41); Mean Corp Hgb Conc 34.4 g/dL (32-36); Mean Corpuscular Hgb 36.4 pg (27.0-32.0); Mean Corpuscular Volume 105.9 fL (80-94); Mean Platelet Vol. 9.3 fl (6.2-12.0); Monocyte# 0.65 X10^3/uL; Monocyte% 10.3 % (0-10); NRBC Flagged by Analyzer 0 % (0-5); Neutrophil # 4.05 X10^3/uL (2.7-7.7); Neutrophil % 63.9 % (47-70); Platelet Count 366 K/mm3 (150-450); RBC Distribution Width CV 15.2 % (11.6-14.6); Red Blood Count 4.59 M/mm3 (4.6-6.2); White Blood Count 6.3 K/mm3 (4.4-11.0)
[2022-05-05 18:32] LABS: ALB/GLOB Ratio 0.7 RATIO (0.9-2.4); AST(SGOT) 34 U/L (15-37); Alanine Aminotransfer ALT/SGPT 28 U/L (16-61); Albumin, Serum 2.7 g/dL (3.2-5.0); Alkaline Phosphatase 90 U/L (45-117); Anion Gap 6 (5-15); BUN 5 mg/dL (7-18); BUN/Creat Ratio 6.1 RATIO (10-20); Bilirubin, Direct 0.24 mg/dL (0.00-0.30); Calcium,Total 8.7 mg/dL (8.5-10.1); Chloride 99 mmol/L (98-107); Cholesterol 139 mg/dL (200); Creatinine, Serum 0.82 mg/dL (0.70-1.30); EST Glomerular Filtration Rate 99 mL/min (>60); Est Glom Filt Rate - Afr Amer 120 mL/min (>60); Free T3 1.5 pg/mL (2.18-3.98); Globulin 4.1 g/dL (2.2-4.2); Glucose 84 mg/dL (74-106); High Density Lipoprotein 66 mg/dL; PSA,Total- Diagnostic 2.06 ng/mL (0.0-4.0); Potassium 3.8 mmol/L (3.5-5.1); Protein, Total 6.8 g/dL (6.4-8.2); Sodium Level 133 mmol/L (136-145); T4 Free Direct 0.73 ng/dL (0.76-1.46); Triglycerides 63 mg/dL; Very Low Density Lipoprotein 13 mg/dL (5-40)
[2022-05-07 20:07] LABS: QNTFERON TB Mitogen Value 9.78 IU/mL (.); QNTFERON TB Nil Value 0.01 IU/mL (.); QNTFERON TB1+ Ag Value 0.01 IU/mL (.); QNTFERON TB2+ Ag Value 0.02 IU/mL (.)
[2022-05-09 09:28] LABS: QNTIFERON TB Positive Criteria Negative (Negative)
== END | disposition home or self-care (01) ==
LOC: MFPLAB 14:53
PROVIDERS: PCP Family Medicine; Referring Provider Family Medicine; Visit Provider Family Medicine
DX: E87.6 Hypokalemia (principal); R35.0 Frequency of micturition; E03.9 Hypothyroidism, unspecified; L40.8 Other psoriasis; L29.8 Other pruritus; Z79.899 Other long term (current) drug therapy
CPT/HCPCS: 36415; 80053; 80061; 82248; 84153; 84439; 84443; 84481; 85025; 86480

== ENCOUNTER → 2023-01-24 | Outpatient (CLI) | payer MEDICARE, OTHER, SELFPAY ==
[2023-01-24 16:07] LABS: ALB/GLOB Ratio 0.8 RATIO (0.9-2.4); AST(SGOT) 57 U/L (15-37); Alanine Aminotransfer ALT/SGPT 93 U/L (16-61); Albumin, Serum 2.7 g/dL (3.2-5.0); Alkaline Phosphatase 71 U/L (45-117); Anion Gap 4 (5-15); BUN 4 mg/dL (7-18); BUN/Creat Ratio 5.7 RATIO (10-20); Calcium,Total 8.4 mg/dL (8.5-10.1); Chloride 92 mmol/L (98-107); Cholesterol 123 mg/dL (200); EST Glomerular Filtration Rate 119 mL/min (>60); Est Glom Filt Rate - Afr Amer 144 mL/min (>60); Free T3 1.7 pg/mL (2.18-3.98); Globulin 3.6 g/dL (2.2-4.2); Glucose 59 mg/dL (74-106); High Density Lipoprotein 70 mg/dL; Potassium 3.1 mmol/L (3.5-5.1); Protein, Total 6.3 g/dL (6.4-8.2); Sodium Level 128 mmol/L (136-145); T4 Free Direct 1.37 ng/dL (0.76-1.46); Thyroid Stim Hormone (TSH) 7.15 uIU/mL (0.358-3.74); Triglycerides 36 mg/dL; Very Low Density Lipoprotein 7 mg/dL (5-40)
== END | disposition home or self-care (01) ==
LOC: MTLAB 13:14
PROVIDERS: Internal Medicine Endocrinology, Diabetes & Metabolism; PCP Family Medicine; Referring Provider Family Medicine; Visit Provider Family Medicine
DX: E03.9 Hypothyroidism, unspecified (principal); K21.9 Gastro-esophageal reflux disease without esophagitis; E87.1 Hypo-osmolality and hyponatremia
CPT/HCPCS: 36415; 80053; 80061; 84439; 84443; 84481

== ENCOUNTER → 2023-01-25 | Outpatient (CLI) | payer MEDICARE, OTHER, SELFPAY ==
--- NOTE | 2023-01-25 15:02 | CT_ITS ---
STUDY: CT RIGHT SHOULDER REASON FOR EXAM: Male, 67 years old. Surgical neck of humerus fracture. RADIATION DOSAGE (If Supplied By Facility): CTDIvol = ( 24.58 ) mGy, DLP = ( 566.75 ) mGycm TECHNIQUE contiguous axial images of the right shoulder were obtained without contrast. Coronal and sagittal reconstruction and bone and soft tissue algorithm images were provided for interpretation. Individualized dose optimization techniques were used for this CT. COMPARISON: None. FINDINGS: Osteopenia. Multiple lytic lesions in the proximal humerus compatible with metastatic disease or myeloma. Comminuted fracture of the proximal humerus with minimal displacement of the fracture fragments. Mild arthrosis of the glenohumeral and acromioclavicular joints. Lytic lesions in the clavicle and acromion. Ossification of the cortical acromial ligament. Right apical pleural thickening. CT/Extremity Upper without Contra IMPRESSION: Multiple lytic lesions compatible with metastatic disease or myeloma. Comminuted minimally displaced fracture of the proximal humerus as described. Mild arthrosis of the glenohumeral and acromioclavicular joints. Electronically Signed: Zackery Teixeira MD at 16:11 EDT ,
== END | disposition home or self-care (01) ==
PROVIDERS: PCP Family Medicine; Referring Provider Physician Assistant Surgical; Visit Provider Physician Assistant Surgical
DX: S42.221A 2-part displaced fracture of surgical neck of right humerus, initial encounter for closed fracture (principal)
CPT/HCPCS: 73200

== ENCOUNTER 2023-01-28 14:54 | Outpatient (CLI) | payer MEDICARE, OTHER, SELFPAY ==
[2023-01-28 17:51] LABS: Absolute Lymphocyte Count 1.46 X10^3/uL (0.83-4.51); Absolute Neutrophil Count 5.6 X10^3/uL (2.0-7.7); Basophil# 0.07 X10^3/uL; Basophil% 0.9 % (0-1); Eosinophil# 0.06 X10^3/uL; Eosinophils% 0.8 % (0-5); Hematocrit 46.6 % (40-54); Hemoglobin 15.8 g/dL (13.0-16.5); Lymphocyte # 1.46 X10^3/ul (0.83-4.51); Lymphocyte % 18.3 % (19-41); Mean Corp Hgb Conc 33.9 g/dL (32-36); Mean Corpuscular Hgb 34.1 pg (27.0-32.0); Mean Corpuscular Volume 100.6 fL (80-94); Mean Platelet Vol. 9.2 fl (6.2-12.0); Monocyte# 0.74 X10^3/uL; Monocyte% 9.3 % (0-10); NRBC Flagged by Analyzer 0 % (0-5); Neutrophil # 5.63 X10^3/uL (2.7-7.7); Neutrophil % 70.3 % (47-70); Platelet Count 657 K/mm3 (150-450); RBC Distribution Width CV 12.8 % (11.6-14.6); RBC Distribution Width SD 48.1 fl (35.1-43.9); Red Blood Count 4.63 M/mm3 (4.6-6.2)
[2023-01-28 18:15] LABS: Erythrocyte Sedimentation Rate 5 mm/hr (0-20)
[2023-01-28 18:23] LABS: Anion Gap 6 (5-15); BUN 3 mg/dL (7-18); BUN/Creat Ratio 4.2 RATIO (10-20); Calcium,Total 8.7 mg/dL (8.5-10.1); Chloride 95 mmol/L (98-107); Creatinine, Serum 0.72 mg/dL (0.70-1.30); EST Glomerular Filtration Rate 115 mL/min (>60); Est Glom Filt Rate - Afr Amer 140 mL/min (>60); Glucose 109 mg/dL (74-106); Potassium 3.9 mmol/L (3.5-5.1); Sodium Level 132 mmol/L (136-145)
[2023-02-01 16:10] LABS: Beta-2-Microglobulin, S 2.1 mg/L (0.6-2.4)
== END 2023-01-28 23:59 | disposition home or self-care (01) ==
LOC: MTLAB 14:55
PROVIDERS: PCP Family Medicine; Referring Provider Physician Assistant Surgical; Visit Provider Physician Assistant Surgical
DX: S42.221D 2-part displaced fracture of surgical neck of right humerus, subsequent encounter for fracture with routine healing (principal); M75.91 Shoulder lesion, unspecified, right shoulder; M19.011 Primary osteoarthritis, right shoulder; M89.8X1 Other specified disorders of bone, shoulder
CPT/HCPCS: 36415; 80048; 82232; 84165; 84166; 85025; 85652

== ENCOUNTER → 2023-02-10 | Outpatient (CLI) | payer MEDICARE, OTHER, SELFPAY ==
--- NOTE | 2023-02-10 13:27 | CT_ITS ---
INDICATION: Shoulder bone lesion. Fall 3 weeks ago with fracture, found bone cancer in arm. 50 pound weight loss. EXAMINATION: CT CHEST, ABDOMEN AND PELVIS WITH CONTRAST TECHNIQUE: Helically acquired images were obtained of the chest, abdomen, and pelvis following IV contrast. 2-D reconstructions reviewed. A radiation dose optimization technique was used for this scan. IV Contrast dosage and agent: 100 cc [id number] Oral contrast: Yes COMPARISON: CT of right shoulder from 01/25/[address] from 05/29/2021. CT abdomen and pelvis report from 12/20/2019 is also reviewed. FINDINGS: ----Chest: LUNGS, PLEURA AND LARGE AIRWAYS: No pulmonary mass, consolidation or edema. Stable mild biapical scarring. Mild centrilobular and paraseptal emphysematous changes also noted. No pleural effusion. No pneumothorax. THYROID: Unremarkable as visualized. HEART AND PERICARDIUM: Heart size within normal limits. No significant pericardial effusion. VESSELS: No thoracic aortic aneurysm or dissection. Great vessels are patent. No obvious central pulmonary embolism although this study was not performed with the pulmonary embolism protocol. MEDIASTINUM AND ANKUSH: No mediastinal or hilar adenopathy. Esophagus is unremarkable. BONES: Incompletely imaged right proximal humerus demonstrates stable comminuted and minimally displaced fracture through right humeral neck with numerous proximal humeral lytic bone lesions. Chronic right 9th rib fracture. Chronic appearing T12 superior endplate compression fracture with no significant loss of vertebral body heights are appreciable prevertebral soft tissue swelling. Adequate alignment of spine with no significant spinal canal stenosis. ----Abdomen/Pelvis: LIVER: Fatty infiltration of liver with smaller areas of accentuated focal fat adjacent to gallbladder fossa and within left lobe of liver. No concerning lesion. GALLBLADDER AND BILIARY TREE: Status post cholecystectomy. No significant biliary ductal dilation. PANCREAS: No discrete mass or peripancreatic edema. SPLEEN: Normal size without focal cystic or solid mass. ADRENAL GLANDS: Unremarkable. KIDNEYS AND URETERS: Normal renal size and position. No hydronephrosis. Ovoid exophytic cyst arising from lateral upper pole of left kidney measures 3.8 cm diameter and demonstrates smooth margins, imperceptible wall and slightly hazy increased attenuation fluid. PERITONEUM: No peritoneal free air or significant free fluid. No other fluid collection. BOWEL: No evidence of acute appendicitis. No bowel obstruction or significant bowel thickening. No focal inflammatory change. LYMPH NODES: No enlarged mesenteric or retroperitoneal lymph nodes. VESSELS: Atherosclerosis with no abdominal aortic aneurysm. URINARY BLADDER: Unremarkable as visualized. REPRODUCTIVE ORGANS: No pelvic masses. ABDOMINAL WALL: No acute findings or significant hernia defect. BONES: Status post left hip arthroplasty. Mild degenerative changes right hip. Mild degenerative changes along spine. No acute fracture detected. Intramedullary lytic lesion within anterior lower left iliac bone, just above acetabulum, with smooth margin of sharp transition, no overlying cortical destruction or periosteal reaction. CT/CT Chest, Abd, Pel w/Contrast IMPRESSION: 1. Incompletely imaged pathologic fracture right proximal humerus and focal lytic bone lesions again noted. Differential includes metastatic disease, multiple myeloma, atypical osteopenia, postinfectious changes. The only other bone lesion identified is within left iliac bone and appears nonaggressive, favoring benign fibrous type lesion. 2. No evidence of intrathoracic intra-abdominal malignancy. 3. Mildly complex exophytic left renal cyst also described in prior CT abdomen and pelvis report, Bosniak class II cyst. Follow-up as clinically warranted. 4. Mild pulmonary emphysema. 5. Hepatic steatosis. 6. Chronic appearing mild superior endplate compression fracture at T12. 7. Other nonurgent findings within body of report. Electronically Signed: Anderson Mora MD at 6:21 EDT ,
[2023-02-10 14:12] LABS: Absolute Lymphocyte Count 1.23 X10^3/uL (0.83-4.51); Basophil# 0.05 X10^3/uL; Basophil% 0.8 % (0-1); Eosinophil# 0.28 X10^3/uL; Eosinophils% 4.5 % (0-5); Hemoglobin 16.9 g/dL (13.0-16.5); Lymphocyte # 1.23 X10^3/ul (0.83-4.51); Lymphocyte % 19.8 % (19-41); Mean Corp Hgb Conc 34.5 g/dL (32-36); Mean Corpuscular Hgb 34.6 pg (27.0-32.0); Mean Corpuscular Volume 100.4 fL (80-94); Monocyte# 0.65 X10^3/uL; Monocyte% 10.5 % (0-10); NRBC Flagged by Analyzer 0 % (0-5); Neutrophil % 64.2 % (47-70); Platelet Count 184 K/mm3 (150-450); RBC Distribution Width CV 13.9 % (11.6-14.6); RBC Distribution Width SD 51.5 fl (35.1-43.9); Red Blood Count 4.88 M/mm3 (4.6-6.2); White Blood Count 6.2 K/mm3 (4.4-11.0)
[2023-02-10 14:37] LABS: Erythrocyte Sedimentation Rate 2 mm/hr (0-20)
[2023-02-10 14:59] LABS: Anion Gap 5 (5-15); BUN 4 mg/dL (7-18); BUN/Creat Ratio 5.2 RATIO (10-20); Calcium,Total 8.8 mg/dL (8.5-10.1); Chloride 94 mmol/L (98-107); Creatinine, Serum 0.76 mg/dL (0.70-1.30); EST Glomerular Filtration Rate 107 mL/min (>60); Est Glom Filt Rate - Afr Amer 130 mL/min (>60); Glucose 102 mg/dL (74-106); Potassium 3.6 mmol/L (3.5-5.1); Sodium Level 129 mmol/L (136-145)
[2023-02-15 14:09] LABS: PROEL- A/G Ratio 0.9 (0.7-1.7); PROEL- Albumin 3.1 g/dL (2.9-4.4); PROEL- Alpha-1 Globulin 0.2 g/dL (0.0-0.4); PROEL- Alpha-2 Globulin 0.5 g/dL (0.4-1.0); PROEL- Beta Globulin 0.8 g/dL (0.7-1.3); PROEL- Gamma Globulin 1.8 g/dL (0.4-1.8); PROEL- Globulin, Total 3.4 g/dL (2.2-3.9); PROEL- TOTAL PROTEIN 6.5 g/dL (6.0-8.5); PROELU- Albumin, Urine 34.5 % (.); PROELU- Alpha-1-Globulin,Ur 3.6 % (.); PROELU- Alpha-2-Globulin,Ur 18.6 % (.); PROELU- Beta Globulin, Ur 29.5 % (.); PROELU- Gamma Globulin, Ur 13.8 % (.); Total Protein, Ur 11.8 mg/dL (Not Estab.)
== END | disposition home or self-care (01) ==
LOC: CT 13:26
PROVIDERS: PCP Family Medicine; Referring Provider Physician Assistant Surgical; Visit Provider Physician Assistant Surgical
DX: S42.221D 2-part displaced fracture of surgical neck of right humerus, subsequent encounter for fracture with routine healing (principal); M75.91 Shoulder lesion, unspecified, right shoulder; M89.8X1 Other specified disorders of bone, shoulder
CPT/HCPCS: 71260; 74177; 80048; 82232; 84165; 84166; 85025; 85652; Q9967

== ENCOUNTER → 2023-04-06 | Outpatient (CLI) | payer MEDICARE, OTHER, SELFPAY ==
[2023-04-06 17:39] LABS: Absolute Lymphocyte Count 1.32 X10^3/uL (0.83-4.51); Basophil# 0.05 X10^3/uL; Basophil% 0.5 % (0-1); Eosinophil# 0.32 X10^3/uL; Eosinophils% 3.4 % (0-5); Hematocrit 48.7 % (40-54); Hemoglobin 17.4 g/dL (13.0-16.5); Lymphocyte # 1.32 X10^3/ul (0.83-4.51); Lymphocyte % 13.9 % (19-41); Mean Corp Hgb Conc 35.7 g/dL (32-36); Mean Corpuscular Hgb 35.4 pg (27.0-32.0); Mean Platelet Vol. 9.2 fl (6.2-12.0); Monocyte# 0.79 X10^3/uL; Monocyte% 8.3 % (0-10); NRBC Flagged by Analyzer 0 % (0-5); Neutrophil % 73.6 % (47-70); Platelet Count 273 K/mm3 (150-450); RBC Distribution Width CV 12.8 % (11.6-14.6); RBC Distribution Width SD 45.7 fl (35.1-43.9); Red Blood Count 4.92 M/mm3 (4.6-6.2); White Blood Count 9.5 K/mm3 (4.4-11.0)
[2023-04-06 18:05] LABS: AST(SGOT) 108 U/L (15-37); Alanine Aminotransfer ALT/SGPT 71 U/L (16-61); Albumin, Serum 3.2 g/dL (3.2-5.0); Alkaline Phosphatase 99 U/L (45-117); Bilirubin, Direct 0.81 mg/dL (0.00-0.30); Globulin 4.1 g/dL (2.2-4.2); Protein, Total 7.3 g/dL (6.4-8.2)
[2023-04-08 21:06] LABS: QNTFERON TB Mitogen Value > 10.00 IU/mL (.); QNTFERON TB Nil Value 0.05 IU/mL (.); QNTFERON TB1+ Ag Value 0.05 IU/mL (.); QNTFERON TB2+ Ag Value 0.04 IU/mL (.); QNTIFERON TB Positive Criteria Negative (Negative)
== END | disposition home or self-care (01) ==
PROVIDERS: PCP Family Medicine; Referring Provider Dermatology; Visit Provider Dermatology
DX: L40.8 Other psoriasis (principal); L29.8 Other pruritus; Z79.899 Other long term (current) drug therapy
CPT/HCPCS: 36415; 80076; 85025; 86480

== ENCOUNTER → 2023-11-07 | Outpatient (CLI) | payer MEDICARE, OTHER, SELFPAY ==
[2023-11-07 17:54] LABS: Anion Gap 4 (5-15); BUN 8 mg/dL (7-18); BUN/Creat Ratio 9.7 RATIO (10-20); Calcium,Total 8.6 mg/dL (8.5-10.1); Chloride 90 mmol/L (98-107); Creatinine, Serum 0.82 mg/dL (0.70-1.30); EST Glomerular Filtration Rate 98 mL/min (>60); Est Glom Filt Rate - Afr Amer 119 mL/min (>60); Free T3 1.6 pg/mL (2.18-3.98); Glucose 91 mg/dL (74-106); Potassium 3.6 mmol/L (3.5-5.1); Sodium Level 127 mmol/L (136-145); T4 Free Direct 1.23 ng/dL (0.76-1.46)
== END | disposition home or self-care (01) ==
LOC: MFPLAB 16:19
PROVIDERS: PCP Family Medicine; Visit Provider Family Medicine
DX: E87.6 Hypokalemia (principal); E03.9 Hypothyroidism, unspecified
CPT/HCPCS: 36415; 80048; 84439; 84443; 84481

== ENCOUNTER → 2024-02-06 | Outpatient (CLI) | payer MEDICARE, OTHER, SELFPAY ==
[2024-02-06 15:14] LABS: Absolute Lymphocyte Count 1.47 X10^3/uL (0.83-4.51); Absolute Neutrophil Count 3.3 X10^3/uL (2.0-7.7); Basophil# 0.07 X10^3/uL; Basophil% 1.2 % (0-1); Eosinophil# 0.39 X10^3/uL; Eosinophils% 6.4 % (0-5); Hematocrit 43.2 % (40-54); Hemoglobin 14.7 g/dL (13.0-16.5); Lymphocyte # 1.47 X10^3/ul (0.83-4.51); Lymphocyte % 24.3 % (19-41); Mean Corpuscular Hgb 37.8 pg (27.0-32.0); Mean Corpuscular Volume 111.1 fL (80-94); Mean Platelet Vol. 9.7 fl (6.2-12.0); Monocyte# 0.81 X10^3/uL; Monocyte% 13.4 % (0-10); NRBC Flagged by Analyzer 0 % (0-5); Neutrophil # 3.31 X10^3/uL (2.7-7.7); Neutrophil % 54.5 % (47-70); Platelet Count 277 K/mm3 (150-450); RBC Distribution Width CV 14.7 % (11.6-14.6); RBC Distribution Width SD 61.2 fl (35.1-43.9); Red Blood Count 3.89 M/mm3 (4.6-6.2); White Blood Count 6.1 K/mm3 (4.4-11.0)
[2024-02-06 15:46] LABS: Anion Gap 3 (5-15); BUN 6 mg/dL (7-18); BUN/Creat Ratio 10.6 RATIO (10-20); Calcium,Total 8.4 mg/dL (8.5-10.1); Chloride 97 mmol/L (98-107); Creatinine, Serum 0.57 mg/dL (0.70-1.30); EST Glomerular Filtration Rate 151 mL/min (>60); Est Glom Filt Rate - Afr Amer 183 mL/min (>60); Free T3 1.7 pg/mL (2.18-3.98); Glucose 88 mg/dL (74-106); Potassium 3.4 mmol/L (3.5-5.1); Sodium Level 131 mmol/L (136-145); T4 Free Direct 0.98 ng/dL (0.76-1.46)
== END | disposition home or self-care (01) ==
LOC: MFPLAB 10:22
PROVIDERS: PCP Family Medicine; Visit Provider Family Medicine
DX: R53.83 Other fatigue (principal); E03.9 Hypothyroidism, unspecified
CPT/HCPCS: 36415; 80048; 84439; 84443; 84481; 85025

== ENCOUNTER 2024-03-01 11:05 | Inpatient (IN) | payer MEDICARE, OTHER, SELFPAY ==
[2024-03-01] VITALS (8 sets, daily range): BP systolic 130–151; BP diastolic 83–129; PULSE 82–99; RESP 16–22; TEMP 36.4–36.8; O2SAT 96–99; BMI 21.6; BMI 21.3
--- NOTE | 2024-03-01 11:07 | EKG12_ITS ---
Test Reason : CP Blood Pressure : / mmHG Vent. Rate : 073 BPM Atrial Rate : 073 BPM P-R Int : 174 ms QRS Dur : 082 ms QT Int : 420 ms P-R-T Axes : 084 -02 062 degrees QTc Int : 462 ms Normal sinus rhythm Normal ECG Confirmed by Lei Galeana ([id number]), manager editorial KAREN VALENTE ([id number]) on 03/05/2024 9:25:24 AM Referred By: Confirmed By:Lei Galeana
--- NOTE | 2024-03-01 11:07 | RAD_ITS ---
STUDY: X-RAY CHEST REASON FOR EXAM: Male, 68 years old. Atypical chest pain TECHNIQUE: 2 AP portable views COMPARISON: 01/06/22 FINDINGS: EKG leads overlie the chest The lungs are clear and expanded. There is no demonstrated pleural abnormality. Normal size heart. Normal mediastinum and debbie. Normal visualized pulmonary arteries. Normal visualized aortic arch and descending thoracic aorta. Normal visualized thoracic spine. There is degenerative osteoarthritis of the bilateral shoulders. There is no demonstrated abnormality of the visualized soft tissue structures of the upper abdomen. RAD/Chest 1 View (Portable) IMPRESSION: No acute pulmonary process Electronically Signed: Khanh Forde MD at 11:44 EDT ,
--- NOTE | 2024-03-01 11:15 | ED.VIS.CHEST ---
HPI History of Present Illness Chief Complaint: Chest Pain Detail of Chief Complaint: Bilateral leg swelling for approximately a week. Informant: patient Onset/Context/Timing Onset: Days Activity at onset: gradual Timing: Continuous Quality: Positive for Dull Location: Substernal Current Severity: Mild Maximum Severity: Mild Worsened By: Nothing Relieved By: Nothing Associated Symptoms: Negative for Nausea, Vomiting, Diaphoresis, Dyspnea, Cough, Fever, Acid Reflux or Palpitations Narrative Narrative: 5-year-old male history of hypothyroidism for which she is on thyroid medication. She has had about a week long history of bilateral lower extremity swelling. He is never anything like that before. He has no cardiac history or history of CHF. Saw his primary care physician who started him on Lasix about a week ago. He is also noticed some chest discomfort the last several days. He has got no history of liver disease but he does drink alcohol daily about 2 beers he states. He says he is taking the Lasix is making him urinate but his leg swelling is actually getting worse. Prior Similar Symptoms: No Recent Illness/Hospitalization: No CVD Risk Factors: Negative for Hypertension, Diabetes or Hypercholesterolemia PE Risk Factors: Negative for Recent Travel/Surgery, Recent Immobilization, Prior DVT or PE, Cancer or OCP + Smoking + >/=35 TAD Risk Factors: Negative for Marfan's Syndrome [facility] Medical History Vertigo GERD (gastroesophageal reflux disease) Hypothyroidism Home Medications ?Medication ?Instructions ?Recorded ?Last Taken ?Type multivitamin (Multiple Vitamins 1 ea PO DAILY SUPPLEMENT 08/21/18 Unknown History tablet) albuterol sulfate 90 mcg/actuation 1 - 2 puff inhalation Q4H PRN PRN 12/11/19 Unknown Rx aerosol inhaler Wheezing ##1 aspirin 81 mg chewable tablet 81 mg PO DAILY heart health 12/11/19 Unknown History famotidine 20 mg tablet 20 mg PO DAILY GERD 12/11/19 Unknown History ustekinumab 90 mg/mL subcutaneous 90 mg SQ UD 12/11/19 11/27/19 History syringe meclizine 25 mg tablet 25 mg PO TID PRN PRN vertigo #30 12/12/19 Unknown Rx tabs omeprazole 20 mg capsule,delayed 20 mg PO BID 08/10/21 Unknown History release levothyroxine 125 mcg tablet 125 mcg PO .qd, 2 on Sundays #1 TAB 01/24/23 Unknown Rx Allergy/AdvReac Type Severity Reaction Status Date / Time codeine AdvReac Intermediate Upset Verified 03/01/24 11:06 Stomach Family History Father CAD (coronary artery disease) Social History Smoking Status: Light Smoker (<10/day) alcohol intake: former substance use type: does not use ROS ROS ED ROS Narrative Denies recent illness. Constitutional Constitutional ED: Denies chills or fever(s) Eyes Eyes: Reports none ENT ENT ED: Denies ear pain Cardiovascular Cardiovascular: Reports chest pain; Denies palpitations or racing heartbeat Respiratory/Chest Respiratory/Chest: Denies cough or dyspnea Gastrointestinal Gastrointestinal: Reports nausea; Denies abdominal pain Genitourinary Genitourinary ED: Denies dysuria or hematuria Musculoskeletal Musculoskeletal: Denies arthralgias or back pain Integumentary Denies abscess Neurologic Neurologic: Denies headache(s) Psychiatric Psychiatric: Denies anxiety Endocrine Endocrinology: Denies cold intolerance Hematologic/Lymphatic Hematologic/Lymphatic: Denies easy bleeding Allergic/Immunologic Allergic/Immunologic ED: Denies mouth swelling EXAM Physical Exam Narrative Exam Narrative: 68-year-old male sitting upright in bed. No acute distress. Vital signs stable afebrile. Pulse ox 98% on room air no hypoxia. H EENT exam unremarkable. Moist mucous membranes. Neck nontender JVD. Lungs clear to auscultation bilaterally. Heart regular rate and rhythm rate about 95 no murmur. Chest wall ribs nontender. Abdomen soft nontender. Moving all 4 extremities. Neurovascularly intact. 5 out of 5 biochemist strength. Dorsi plantarflexion intact. Both lower extremities have 2+ pitting edema just above the knee. Back nontender. Neurologically is awake and alert no focal motor deficits. Const Vital Signs: 03/01/24 11:05 03/01/24 11:09 03/01/24 11:13 Temperature 98 F Temperature Source Temporal Pulse Rate 99 Respiratory Rate 22 H Respiratory Effort Short of Breath Blood Pressure 131/83 H Blood Pressure Mean 99 Pulse Ox 98 Oxygen Delivery Method Room Air Room Air Positive well nourished and well developed; Negative for cachectic, contractures or unkempt General Appearance ED: well developed and NAD; Negative for unkempt, cachectic, contractures or pallor Nutritional Appearance: Negative for cachectic HEENT Reports moist mucous membranes normocephalic and atraumatic; Negative for trauma or tenderness Eyes PERRL and EOMs intact bilaterally General Eye ED: Negative for pale conjunctiva Neck no lymphadenopathy, supple and no JVD General: Negative for tenderness Chest Wall inspection of chest normal and palpation of chest normal Chest: Negative for tenderness Resp normal respiratory effort and clear to auscultation bilaterally Effort and Inspection: Negative for respiratory distress Auscultation: Negative for rales, rhonchi or wheezes Cardio regular rate, regular rhythm, S1 normal heart sound, S2 normal heart sound and no murmurs Peripheral Pulses: pulses 2+ throughout GI normal to inspection, nondistended, normoactive bowel sounds, soft to palpation, non-tender, non-distended and no masses Back/Spine no CVA tenderness and no thoracic nor lumbar tenderness Extremity Negative for normal to inspection Extremity Narrative: 2+ pitting edema both lower extremities above the knees. Normal dorsi plantarflexion. General Extremety ED: Yes edema General Extremity: edema Neuro oriented x3 and CN's II-XII intact bilaterally Sensorium / Orientation: awake, alert, oriented to person, oriented to place and oriented to time; Negative for confused, lethargic or stuporous Motor Exam: strength 5/5 throughout Psych mental status grossly normal Appearance: Negative for unkempt Attitude: No agitated Mood & Affect: Negative for depressed, anxious or tearful Skin no rashes or lesions noted and no wounds General Skin Exam: Negative for jaundice or pallor Rashes: No rashes noted Trauma: Negative for abrasion MDM MDM MDM Narrative Medical decision making narrative: 68-year-old male 1 week ago Send bilateral lower extremity edema and the last several days has had some chest discomfort. Differential would include CHF, liver disease, hypothyroidism versus other etiologies. He will undergo a cardiac workup with a liver panel and a TSH. Repeat exam is unchanged. I think his lower extremity edema bilaterally is most likely secondary to liver disease from his alcohol use. He has a normal EKG and chest x-ray. I think is much less likely this is CHF. Speak to hospitalist about admitting him for further evaluation. History & Record Review Discussion w/independent historian: Patient Additional record(s) reviewed:: Prior inpatient record, Prior outpatient record, Prior ED visit and Prior labs Lab Data Attestation: I reviewed the patient's lab results. Lab results narrative: CBC unremarkable. White count 9. H&H 15 and 45. Platelets 185. Electrolytes show a potassium of 2.9. Gap of 4. BUN and creatinine of 4 and 0.6. Liver enzymes are elevated. Troponin is normal at 10. TSH is 0.036 Chest x-ray is unremarkable. Labs: Laboratory Results - last 24 hr 03/01/24 11:10 WBC 9.4 RBC 4.24 L Hgb 15.7 Hct 45.9 MCV 108.3 H MCH 37.0 H MCHC 34.2 RDW Std Deviation 55.1 H RDW Coeff of Keysha 13.7 Plt Count 185 MPV 9.4 Immature Gran % (Auto) 0.500 Neut % (Auto) 74.6 H Lymph % (Auto) 12.0 L [place] % (Auto) 11.9 H Eos % (Auto) 0.7 Baso % (Auto) 0.3 Absolute Neuts (auto) 7.0 Absolute Lymphs (auto) 1.12 Nucleated RBC % 0 Sodium 137 Potassium 2.9 L Chloride 97 L Carbon Dioxide 36.0 H Anion Gap 4 L BUN 4 L Creatinine 0.60 L Estim Creat Clear Calc 103.06 Est GFR (MDRD) Af Amer 170 Est GFR (MDRD) Non-Af 141 BUN/Creatinine Ratio 6.6 L Glucose 109 H Calcium 8.1 L Total Bilirubin 4.90 H Direct Bilirubin 1.74 H AST 125 H ALT 96 H Alkaline Phosphatase 158 H Troponin I High Sens 10 Total Protein 5.9 L Albumin 2.2 L Globulin 3.7 TSH 0.036 L Radiography Chest X-Ray - ED: 1 View, Read by ED Physician, Heart, Lungs, Mediastinum, Bony Structures, No Acute Disease and Chronic Changes Diagnostic Testing: Clinical Impression(s) from Imaging Studies Chest X-Ray 03/01/24 11:07 IMPRESSION: No acute pulmonary process Electronically Signed: Khanh Forde MD at 11:44 EDT Reading Location ID and State: [facility] / [place] , Service support , Microcytic anemia chest x-ray, portable, single view interpreted by myself and the radiologist shows no acute abnormality. Normal cardiac silhouette. No CHF. No pleural effusions. Discharge Plan Dx/Rx/DC Orders Clinical Impression: Bilateral leg edema, Elevated liver enzymes, History of hypothyroidism, Acute hypokalemia Disposition Disposition: Acute Care Hospital [facility]
[2024-03-01 11:22] LABS: Absolute Lymphocyte Count 1.12 X10^3/uL (0.83-4.51); Basophil# 0.03 X10^3/uL; Basophil% 0.3 % (0-1); Eosinophil# 0.07 X10^3/uL; Eosinophils% 0.7 % (0-5); Hematocrit 45.9 % (40-54); Hemoglobin 15.7 g/dL (13.0-16.5); Lymphocyte # 1.12 X10^3/ul (0.83-4.51); Mean Corp Hgb Conc 34.2 g/dL (32-36); Mean Corpuscular Volume 108.3 fL (80-94); Mean Platelet Vol. 9.4 fl (6.2-12.0); Monocyte# 1.11 X10^3/uL; Monocyte% 11.9 % (0-10); NRBC Flagged by Analyzer 0 % (0-5); Neutrophil # 6.97 X10^3/uL (2.7-7.7); Neutrophil % 74.6 % (47-70); Platelet Count 185 K/mm3 (150-450); RBC Distribution Width CV 13.7 % (11.6-14.6); RBC Distribution Width SD 55.1 fl (35.1-43.9); Red Blood Count 4.24 M/mm3 (4.6-6.2); White Blood Count 9.4 K/mm3 (4.4-11.0)
[2024-03-01 11:46] LABS: AST(SGOT) 125 U/L (15-37); Alanine Aminotransfer ALT/SGPT 96 U/L (16-61); Albumin, Serum 2.2 g/dL (3.2-5.0); Alkaline Phosphatase 158 U/L (45-117); Anion Gap 4 (5-15); BUN 4 mg/dL (7-18); BUN/Creat Ratio 6.6 RATIO (10-20); Bilirubin, Direct 1.74 mg/dL (0.00-0.30); Calcium,Total 8.1 mg/dL (8.5-10.1); Chloride 97 mmol/L (98-107); EST Glomerular Filtration Rate 141 mL/min (>60); Est Glom Filt Rate - Afr Amer 170 mL/min (>60); Estimated Creatinine Clearance 103.06 ml/min; Globulin 3.7 g/dL (2.2-4.2); Glucose 109 mg/dL (74-106); Potassium 2.9 mmol/L (3.5-5.1); Protein, Total 5.9 g/dL (6.4-8.2); Sodium Level 137 mmol/L (136-145); Thyroid Stim Hormone (TSH) 0.036 uIU/mL (0.358-3.740); Troponin-I HS (w/2H Reflex) 10 pg/mL (3.0-78.0)
[2024-03-01] MEDS: Potassium Chloride Oral Tablet 20 MEQ 40 MEQ PO (13:01)
[2024-03-01 13:17] LABS: Reflex Troponin-HS? (from REC) Y
--- NOTE | 2024-03-01 13:21 | HP.PCM.HOS_ITS ---
HPI - General General Date of Admission: 03/01/24 Date of Service: 03/01/24 Chief Complaint: Worsening lower extremity swelling HPI Narrative ABBASI BREECE, is a 68 M with history of GERD, hypothyroidism, alcohol use, BPH, psoriasis, tobacco use who presented to [facility] ED 03/01/2024 with worsening shortness of breath x 1 month and worsening lower extremity edema with some chest discomfort. In the ED EKG within normal limits and troponin 10, chest x-ray no acute abnormality however patient did have significant lower extremity pitting edema and was found to have elevated liver function tests. Given his labs and failure of outpatient management and need for more urgent workup hospitalist contacted for admission. Patient reports he has had some shortness of breath over the past month especially with exertion that has been somewhat limiting with his activity and has had worsening swelling in his lower extremities over the past 2 weeks. He saw his PCP and was started on Lasix however the swelling is continued to worsen. Since yesterday he has had some chest discomfort prompting him to come to the ED. The pain is on the left lateral chest wall and is sharp in nature, laying down in bed at night makes it worse and it does not seem to be associated with exertion and will last about an hour at a time. Patient has a little bit of a cough but has chronic cough due to tobacco use. Does endorse for months he has been having problems with dizzy spells and will fall occasionally last fall being several weeks ago. He has also had a little bit of just general abdominal upset with no nausea or diarrhea and nothing described as pain. Does note the worsening lower extremity swelling and that it is getting painful and uncomfortable in both lower extremities. Denies fevers or headaches. Does report poor p.o. intake but chronically has poor p.o. intake. Smokes fourth of a pack per day but has not smoked in 3 days once he is felt unwell and also drinks around 2 16 ounce beers a day and about once a week will have more than that, last drink yesterday and does not presently feel shaky, denies any history of alcohol withdrawal, DTs, or withdrawal seizures. Denies any other substance use FOR[facility]LY [facility] Medical History (Updated 03/01/24 @ 13:[address] Sridevi Mena MD) GERD (gastroesophageal reflux disease) Hypothyroidism Vertigo Home Medications ?Medication ?Instructions ?Recorded ?Last Taken ?Type multivitamin (Multiple Vitamins 1 ea PO DAILY SUPPLEMENT 08/21/18 Unknown History tablet) albuterol sulfate 90 mcg/actuation 1 - 2 puff inhalation Q4H PRN PRN 12/11/19 Unknown Rx aerosol inhaler Wheezing ##1 aspirin 81 mg chewable tablet 81 mg PO DAILY heart health 12/11/19 Unknown History famotidine 20 mg tablet 20 mg PO DAILY GERD 12/11/19 Unknown History ustekinumab 90 mg/mL subcutaneous 90 mg subcut UD PSORIASIS 12/11/19 11/27/19 History syringe furosemide 20 mg tablet 20 mg PO DAILY EDEMA 03/01/24 Unknown History levothyroxine 150 mcg tablet 150 mcg PO DAILY HYPOTHYROIDISM 03/01/24 Unknown History loperamide 2 mg capsule 2 mg PO DAILY PRN diarrhea 03/01/24 Unknown History omeprazole 20 mg tablet,delayed 20 mg PO QWEEK GERD 03/01/24 Unknown History release Allergy/AdvReac Type Severity Reaction Status Date / Time codeine AdvReac Intermediate Upset Verified 03/01/24 11:06 Stomach Family History Father CAD (coronary artery disease) Social History Smoking Status: Light Smoker (<10/day) alcohol intake: former substance use type: does not use ROS ROS Narrative General: Denies fever/chills HENT: Denies headache, denies stuffy nose, denies sore throat EYES: Denies changes in vision Resp: Intermittent cough, increasing shortness of breath. Cardiac: Some left-sided sharp chest pain GI: Some general feelings of discomfort in his abdomen denies changes in bowel, denies nausea/vomiting : Denies changes in urination Extremity: Increased bilateral lower extremity swelling MSK: Denies weakness Neuro: Denies any numbness/tingling Heme: Denies any bleeding or bruising Skin: Denies rashes Psychiatric: No complaints voiced Vital Signs Vital Signs Vital Signs: 03/01/24 11:05 03/01/24 11:09 03/01/24 11:13 Temperature 98 F Temperature Source Temporal Pulse Rate 99 Respiratory Rate 22 H Respiratory Effort Short of Breath Blood Pressure 131/83 H Blood Pressure Mean 99 Pulse Ox 98 Oxygen Delivery Method Room Air Room Air 03/01/24 13:05 Temperature Temperature Source Pulse Rate 88 Respiratory Rate 16 Respiratory Effort Blood Pressure 151/129 H Blood Pressure Mean 136 Pulse Ox 97 Oxygen Delivery Method Room Air Weight Weight: 84.8 kg Body Mass Index (BMI) 21.6 Physical Exam Narrative General: Alert, oriented, no apparent distress HEENT: Atraumatic, normocephalic, poor dentition Eyes: Has some scleral icterus noted, extraocular movements grossly intact Neck: Supple Respiratory: Diffuse wheezes, slight increased respiratory effort Cardiovascular: Regular rate and rhythm GI: Soft, nontender, somewhat full, no rebound, guarding, rigidity Extremities: 3+ bilateral lower extremity edema Musculoskeletal: Moving all extremities Neuro: No overt focal neurological deficits Skin: Bilateral lower extremities red Psych: Cooperative Results Lab / Micro Data 03/01/24 11:10 03/01/24 11:10 Labs: Laboratory Results - last 24 hr 03/01/24 11:10: WBC 9.4, RBC 4.24 L, Hgb 15.7, Hct 45.9, MCV 108.3 H, MCH 37.0 H , MCHC 34.2, RDW Std Deviation 55.1 H, RDW Coeff of Keysha 13.7, Plt Count 185, MPV 9.4, Immature Gran % (Auto) 0.500, Neut % (Auto) 74.6 H, Lymph % (Auto) 12.0 L, Izard % (Auto) 11.9 H, Eos % (Auto) 0.7, Baso % (Auto) 0.3, Absolute Neuts (auto) 7.0, Absolute Lymphs (auto) 1.12, Nucleated RBC % 0, Sodium 137, Potassium 2.9 L , Chloride 97 L, Carbon Dioxide 36.0 H, Anion Gap 4 L, BUN 4 L, Creatinine 0.60 L, Estim Creat Clear Calc 103.06, Est GFR (MDRD) Af Amer 170, Est GFR (MDRD) Non-Af 141, BUN/Creatinine Ratio 6.6 L, Glucose 109 H, Calcium 8.1 L, Total Bilirubin 4.90 H, Direct Bilirubin 1.74 H, AST 125 H, ALT 96 H, Alkaline Phosphatase 158 H, Troponin I High Sens 10, Total Protein 5.9 L, Albumin 2.2 L, Globulin 3.7, TSH 0.036 L Imaging Radiology Impression Chest X-Ray 03/01/24 11:07 IMPRESSION: No acute pulmonary process Electronically Signed: Khanh Forde MD at 11:44 EDT , Assessment & Plan Assessment/Plan (1) Bilateral leg edema: (2) Elevated liver enzymes: (3) History of hypothyroidism: (4) Acute hypokalemia: (5) Psoriasis: (6) GERD (gastroesophageal reflux disease): PLAN: Plan #BLE edema/increased shortness of breath/elevated liver function tests -Feel it is reasonable to admit patient to hospital given significant worsening of his lower extremity edema of unclear etiology that worsened despite conservative management as well as his jaundice and elevated liver function test as well as his shortness of breath that is now impeding his mobility -Bilateral lower extremity edema worsening and not responding to Lasix, chest x- ray did not demonstrate fluid overload, BNP mildly elevated at 177, if this is secondary to heart failure it appears to be primarily right-sided but may be more liver pathology given elevated liver function tests however if right-sided heart failure significant enough would also cause hepatic congestion -Will workup both hepatic and cardiac -Will obtain echocardiogram -Daily weights, I's and O's -Given patient's lack of improvement with Lasix and with elevated bicarb and appearing somewhat intravascularly volume depleted with slightly dry mucosa we will hold off on additional Lasix until further results are available -Incentive spirometry -Will obtain liver ultrasound -Will check hepatitis panel -Patient has been having increased shortness of breath with diminished exercise tolerance that is now affecting his mobility and has generalized wheezing, query if there could be component of COPD, will trial scheduled duonebs for his breathing as it does not appear to be related to fluid overload, if no improvement however will trial Lasix -Patient not tachycardic, not hypoxic, and not tachypneic and has bilateral lower extremity swelling so do not have high suspicion for PE, do not feel patient needs CTA at this time, suspect breathing is more likely related to his COPD # Atypical chest pain -Patient has intermittent sharp left lateral chest pain that is worse when he is laying down at night and not associated with exertion -Troponin within normal limits and EKG normal sinus rhythm with no evidence of ischemic change -Do not think patient has ACS at this time however echo to be ordered and repeat troponin ordered to be trended -Continue workup as above -Continue home aspirin # Alcohol use disorder -Reportedly drinks 2 beers daily with last beer yesterday and occasionally more than that, will start CIWA with as needed Ativan, B12, thiamine, folate # Hypokalemia -Replace with oral and IV by ED physician -Recheck after administration # Psoriasis -Uses ustekinumab injections every 3 months and confirmed he is taking this #GERD -Continue PPI #Hypothyroidism -Continue Synthroid -TSH low, will check free T4 #Chronic BPH with obstruction -Continue home medications #Tobacco use -Advise cessation -Nicotine replacement available if desired #DVT ppx: Lovenox subcu Sridevi Mena MD Time spent in the patient's overall evaluation,decision-making process, review of diagnostic data, adjustment of management, discussion with other providers, nursing nursing and ancillary staff involved in patient's care documentation, 56 minutes Charges/Coding Visit Charges Inpatient E&M: 67636 Init Hosp L2
[2024-03-01 13:42] LABS: BNP,B-Type NATRIURETIC PEPTIDE 177.1 pg/mL (0-100)
--- NOTE | 2024-03-01 13:53 | ECHOD_ITS ---
Reason For Study: GENERALIZED EDEMA Procedure This was a 2D Doppler, Color Flow transthoracic echocardiogram. The study was technically difficult. Due to respiratory interference. Exam performed in department. Left Ventricle Normal size and thickness. The left ventricular ejection fraction is 60 %. Normal diastololic function. Right Ventricle Normal right ventricle. Atria The left and right atria are normal. Mitral Valve Trivial mitral valve insufficiency. Tricuspid Valve Trivial tricuspid valve insufficiency. Right ventricular systolic pressure estimated to be 38 mmHg. Aortic Valve Trisinus/trileaflet aortic valve. Pulmonic Valve The pulmonic valve is not well visualized. Great Vessels Mildly dilated aortic root. Pericardium/Pleural No pericardial effusion. MMode/2D Measurements & Calculations LVIDd: 5.2 cm IVSd: 0.81 cm Ao root diam: 3.9 cm LVIDs: 3.5 cm LVPWd: 0.97 cm RVDd: 3.7 cm FS: 33.5 % LAV(MOD-bp): 48.9 ml LVAd ap4: 25.0 cm2 LVAd ap2: 27.7 cm2 LAV(MOD-bp) Indexed: 22.3 ml/m2 LVLd ap4: 7.2 cm LVLd ap2: 7.9 cm LAV(MOD-sp2): 46.7 ml EDV(MOD-sp4): 71.0 ml EDV(MOD-sp2): 81.8 ml LAV(MOD-sp4): 46.1 ml EDV(sp4-el): 73.2 ml EDV(sp2-el): 82.7 ml LVAs ap4: 13.9 cm2 LVAs ap2: 16.1 cm2 LVLs ap4: 6.2 cm LVLs ap2: 6.9 cm ESV(MOD-sp4): 28.3 ml ESV(MOD-sp2): 32.4 ml ESV(sp4-el): 26.8 ml ESV(sp2-el): 32.2 ml EF(MOD-sp4): 60.1 % EF(MOD-sp2): 60.4 % EF(sp4-el): 63.4 % SV(MOD-sp4): 42.7 ml SV(MOD-sp2): 49.4 ml SV(sp4-el): 46.4 ml LA dimension(2D): 3.6 cm LA A4 area: 17.7 cm2 RA A4 area: 15.5 cm2 TAPSE: 2.6 cm Time Measurements MV dec time: 0.20 sec Doppler Measurements & Calculations MV E max shahbaz: 70.5 cm/sec Lat Peak E' Shahbaz: 15.4 cm/sec Med Peak E' Shahbaz: 9.8 cm/sec MV A max shahbaz: 55.9 cm/sec E/E' lat: 4.6 E/E' med: 7.2 MV E/A: 1.3 MV V2 max: 77.5 cm/sec Ao V2 max: 103.4 cm/sec LV V1 max: 84.1 cm/sec MV max P.4 mmHg Ao max P.3 mmHg LV V1 max P.8 mmHg MV V2 mean: 46.2 cm/sec Ao V2 mean: 74.3 cm/sec LV V1 mean P.5 mmHg MV mean P.98 mmHg Ao mean P.5 mmHg LV V1 mean: 59.4 cm/sec MV V2 VTI: 16.5 cm Ao V2 VTI: 20.6 cm LV V1 VTI: 20.1 cm AV (velocity ratio): 0.98 PA V2 max: 65.7 cm/sec TR max shahbaz: 238.1 cm/sec PA V2 mean: 43.7 cm/sec TR max P.7 mmHg ECHO/Echo Complete Interpretation Summary The left ventricular ejection fraction is 60 %. Normal diastololic function. Mildly dilated aortic root. Right ventricular systolic pressure estimated to be 38 mmHg. Ordering Physician: Sridevi Mena Referring Physician: Hebert Whaley Performed By: Carole Gaona, BRUNILDA, RVT
--- NOTE | 2024-03-01 13:53 | US_ITS ---
INDICATION: Elevated LFTs and LE swelling EXAMINATION: Ultrasound US Abdomen RUQ (limited) TECHNIQUE: Collins-scale and color Doppler imaging was performed of the abdomen. COMPARISON: FINDINGS: LIVER: There is fatty echotexture measuring 16.6 cm. No focal hepatic lesion. No intrahepatic biliary ductal dilatation. There is no free fluid. GALLBLADDER AND BILIARY TREE: Status post cholecystectomy. The common bile duct is 4 mm. SONOGRAPHIC BAUGH''S SIGN: Negative. PANCREAS: No focal abnormality is demonstrated in the visualized portion of the pancreas. Pancreatic tail is not well seen. No pancreatic ductal dilatation. RIGHT KIDNEY: 10.7 x 6.0 x 5.0 cm. The cortex is 14 mm. There is no hydronephrosis. No shadowing calculus, focal lesion, or perinephric collection is demonstrated. VESSELS: Submitted longitudinal images of the intra-abdominal aorta demonstrate no gross abnormalities and are unremarkable. The IVC is patent. US/Liver IMPRESSION: Fatty liver. Status post cholecystectomy. Electronically Signed: Ambrose Edge DO at 23:36 EDT ,
[2024-03-01 14:24] LABS: Troponin-I HS 11 pg/mL (3.0-78.0)
[2024-03-01] MEDS: [UNRECOGNIZED DRUG - OTHER] IV (15:02)
[2024-03-01] MEDS: POTASSIUM CHLORIDE IV (15:02)
[2024-03-01] MEDS: MAGNESIUM SULFATE IV (15:02)
[2024-03-01] MEDS: Ipratropium/Albuterol Sulfate 3 ML AMPUL.NEB INHALATION (17:16)
[2024-03-01 17:59] LABS: Anion Gap 3 (5-15); BUN 5 mg/dL (7-18); BUN/Creat Ratio 11.5 RATIO (10-20); Calcium,Total 7.6 mg/dL (8.5-10.1); Chloride 98 mmol/L (98-107); Creatinine, Serum 0.44 mg/dL (0.70-1.30); EST Glomerular Filtration Rate 204 mL/min (>60); Est Glom Filt Rate - Afr Amer 247 mL/min (>60); Estimated Creatinine Clearance 101.84 ml/min; Glucose 95 mg/dL (74-106); Magnesium 2.6 mg/dL (1.6-2.6); Potassium 3.1 mmol/L (3.5-5.1); Sodium Level 136 mmol/L (136-145); T4 Free Direct 1.67 ng/dL (0.76-1.46)
[2024-03-01] MEDS: Nystatin 500,000 UNIT/5 ML PO.SYRINGE (WCH) 500000 UNIT PO ×2 (18:56→20:55)
[2024-03-01] MEDS: Potassium Chloride Oral Tablet 20 MEQ 60 MEQ PO (18:56)
[2024-03-01] MEDS: 0.9% Saline Lock 10 ML Syringe IV (20:56)
[2024-03-01] MEDS: traZODone 100 MG Tablet PO (20:56)
[2024-03-02] VITALS (11 sets, daily range): BP systolic 96–126; BP diastolic 70–82; PULSE 74–102; RESP 16–20; TEMP 36.7–37; O2SAT 93–98; BMI 21.4
[2024-03-02] MEDS: MELATONIN 3 MG TABLET PO (00:22)
[2024-03-02] MEDS: LORazepam 1 MG Tablet PO ×2 (01:58→21:35)
[2024-03-02] MEDS: Levothyroxine 150 MCG Tablet PO (06:03)
[2024-03-02 06:59] LABS: Absolute Lymphocyte Count 1.26 X10^3/uL (0.83-4.51); Absolute Neutrophil Count 4.6 X10^3/uL (2.0-7.7); Basophil# 0.04 X10^3/uL; Basophil% 0.6 % (0-1); Eosinophil# 0.15 X10^3/uL; Eosinophils% 2.2 % (0-5); Hematocrit 40.2 % (40-54); Hemoglobin 13.8 g/dL (13.0-16.5); Lymphocyte # 1.26 X10^3/ul (0.83-4.51); Lymphocyte % 18.3 % (19-41); Mean Corp Hgb Conc 34.3 g/dL (32-36); Mean Corpuscular Hgb 37.3 pg (27.0-32.0); Mean Corpuscular Volume 108.6 fL (80-94); Mean Platelet Vol. 9.6 fl (6.2-12.0); Monocyte# 0.77 X10^3/uL; Monocyte% 11.2 % (0-10); NRBC Flagged by Analyzer 0 % (0-5); Neutrophil # 4.63 X10^3/uL (2.7-7.7); Neutrophil % 67.4 % (47-70); Platelet Count 161 K/mm3 (150-450); RBC Distribution Width CV 13.6 % (11.6-14.6); RBC Distribution Width SD 54.8 fl (35.1-43.9); White Blood Count 6.9 K/mm3 (4.4-11.0)
[2024-03-02] MEDS: Ipratropium/Albuterol Sulfate 3 ML AMPUL.NEB INHALATION ×3 (07:16→20:16)
[2024-03-02 07:21] LABS: ALB/GLOB Ratio 0.5 RATIO (0.9-2.4); AST(SGOT) 79 U/L (15-37); Alanine Aminotransfer ALT/SGPT 66 U/L (16-61); Albumin, Serum 1.7 g/dL (3.2-5.0); Alkaline Phosphatase 119 U/L (45-117); Anion Gap 3 (5-15); BUN 6 mg/dL (7-18); BUN/Creat Ratio 13.7 RATIO (10-20); Calcium,Total 7.5 mg/dL (8.5-10.1); Chloride 100 mmol/L (98-107); Creatinine, Serum 0.44 mg/dL (0.70-1.30); EST Glomerular Filtration Rate 203 mL/min (>60); Est Glom Filt Rate - Afr Amer 245 mL/min (>60); Estimated Creatinine Clearance 102.08 ml/min; Globulin 3.2 g/dL (2.2-4.2); Glucose 79 mg/dL (74-106); Phosphorus 1.6 mg/dL (2.5-4.9); Potassium 3.3 mmol/L (3.5-5.1); Protein, Total 4.9 g/dL (6.4-8.2); Sodium Level 136 mmol/L (136-145)
[2024-03-02] MEDS: Thiamine Hydrochloride 100 MG Tablet PO (09:45)
[2024-03-02] MEDS: Folic Acid 1 MG Tablet PO (09:45)
[2024-03-02] MEDS: Cyanocobalamin 500 MCG Tablet 1000 MCG PO (09:45)
[2024-03-02] MEDS: Pantoprazole Sodium 20 MG Tablet PO (09:45)
[2024-03-02] MEDS: Nystatin 500,000 UNIT/5 ML PO.SYRINGE (WCH) 500000 UNIT PO ×4 (09:45→21:35)
[2024-03-02] MEDS: Enoxaparin 40 MG/0.4 ML Syringe SC (09:45)
[2024-03-02] MEDS: Tamsulosin HCl 0.4 MG Capsule PO (09:45)
[2024-03-02] MEDS: Aspirin 81 MG TAB.CHEW PO (09:45)
[2024-03-02] MEDS: Furosemide 20 MG/2 ML VIAL IV (09:46)
[2024-03-02] MEDS: Potassium Phosphate 40 MM in 0.9% Normal Saline (500mL Bag) 500 ML 62.5 MM IV (09:50)
--- NOTE | 2024-03-02 10:36 | CASEMGMT ---
BLANCA ARCHULETA Assessment: Face to Face with pt for initial transition planning/care coordination assessment. BLANCA ARCHULETA introduced self and role at [facility], pt voices understanding and consents to assessment. Pt is A&O x4 and answers all questions appropriately at this time. Pt lying in bed in no distress with nurse at bedside. Care providers, pharmacy, and demographics verified/updated. Admitting Dx: bilateral edema, elevated liver disease, ETOH use Strata Score: 2 PCP:Judd Specialists:Eyad Hodge Preferred Pharmacy: [facility] Insurance: [facility], [facility] [place] Prescription Benefit: yes LNOK: Esa Breece, son Living Arrangements: Pt lives alone in a 2 story apt with 7 steps to enter. Pt reports he is I in ADL and IADLs and denies concerns at home. Transportation: Pt drives self and denies concerns with transportation. DME:cane which he sometimes uses and a rollator-doesn't use HHC/SNF: Denies hx of Pt states no concerns with going home at time of dc. Pt states he does have a fear of going down the steps and has gone to [facility] for therapy but once he came back from the winter in [place] did not go back. Pt is interested in going to [facility] again for PT. 6 clicks=22, no therapy ordered. Pt states no further concerns/needs. CM to follow. Advised pt to ask CM if any further question/concerns/needs arise, voices understanding. Pt Goal: Home with outpt therapy Plan: Home with outpt therapy Report given to PROGRAMMING MANAGERBLANCA Hood RN, CM
--- NOTE | 2024-03-02 11:42 | ADDICTION ---
Met with pt to discuss addiction treatment options. Clinician gave pt multiple resources. Pt was open to look into different levels of care and explore those options with his family.
[2024-03-02] MEDS: 0.9% Saline Lock 10 ML Syringe IV ×2 (14:56→21:37)
[2024-03-02] MEDS: Calcium Gluconate IV 2 GM in 0.9% Normal Saline (100mL Bag) 100 ML IV (14:56)
--- NOTE | 2024-03-02 15:31 | PN.HOSP_ITS ---
Reason for Visit Reason for Visit: Diagnoses Hypokalemia (03/01/24) Gastro-esophageal reflux disease without esophagitis (03/01/24) Psoriasis, unspecified (03/01/24) Localized edema (03/01/24) Abnormal levels of other serum enzymes (03/01/24) Personal history of other endocrine, nutritional and metabolic disease (03/01/24) Subjective Subjective Patient's legs are still painful and swollen however it is going down patient is slowly feeling better Objective Data Objective Data Vital Signs: Vital Signs Temp Pulse Resp BP Pulse Ox O2 Del Method 98.2 F 99 16 114/77 95 Room Air 03/02/24 14:30 03/02/24 14:30 03/02/24 14:30 03/02/24 10:20 03/02/24 14:30 03/02/24 14:30 Oxygen Delivery Method Room Air Weight: 84 kg Body Mass Index (BMI) 21.4 Intake & Output: Intake and Output for Last 24 Hours 02/29/24 03/01/24 03/02/24 23:59 23:59 23:59 Intake Total 1513 / 1753 880 / 880 Output Total 1175 / 1175 Balance 1513 / 1553 -295 / -295 Lab / Micro Data 03/02/24 06:50 03/02/24 06:50 Labs: Laboratory Results - last 24 hr 03/01/24 17:29: Sodium 136, Potassium 3.1 L, Chloride 98, Carbon Dioxide 35.0 H, Anion Gap 3 L, BUN 5 L, Creatinine 0.44 L, Estim Creat Clear Calc 101.84, Est GFR (MDRD) Af Amer 247, Est GFR (MDRD) Non-Af 204, BUN/Creatinine Ratio 11.5, Glucose 95, Calcium 7.6 L, Magnesium 2.6, Free T4 1.67 H 03/02/24 06:50: WBC 6.9, RBC 3.70 L, Hgb 13.8, Hct 40.2, MCV 108.6 H, MCH 37.3 H , MCHC 34.3, RDW Std Deviation 54.8 H, RDW Coeff of Keysha 13.6, Plt Count 161, MPV 9.6, Immature Gran % (Auto) 0.300, Neut % (Auto) 67.4, Lymph % (Auto) 18.3 L, M connie % (Auto) 11.2 H, Eos % (Auto) 2.2, Baso % (Auto) 0.6, Absolute Neuts (auto) 4.6, Absolute Lymphs (auto) 1.26, Nucleated RBC % 0, Sodium 136, Potassium 3.3 L , Chloride 100, Carbon Dioxide 33.0 H, Anion Gap 3 L, BUN 6 L, Creatinine 0.44 L , Estim Creat Clear Calc 102.08, Est GFR (MDRD) Af Amer 245, Est GFR (MDRD) Non- Af 203, BUN/Creatinine Ratio 13.7, Glucose 79, Calcium 7.5 L, Phosphorus 1.6 L, Magnesium 2.0, Total Bilirubin 4.20 H, AST 79 H, ALT 66 H, Alkaline Phosphatase 119 H, Total Protein 4.9 L, Albumin 1.7 L, Globulin 3.2, Albumin/Globulin Ratio 0.5 L Radiography Diagnostic Testing: Radiology Impression Echocardiogram 03/01/24 13:53 Interpretation Summary The left ventricular ejection fraction is 60 %. Normal diastololic function. Mildly dilated aortic root. Right ventricular systolic pressure estimated to be 38 mmHg. Ordering Physician: Sridevi Mena Referring Physician: Hebert Whaley Performed By: Carole Gaona, BRUNILDA, RVT Liver Ultrasound 03/01/24 13:53 IMPRESSION: Fatty liver. Status post cholecystectomy. Electronically Signed: Ambrose Edge DO at 23:36 EDT Reading Location ID and State: [facility] / [place] Tel [phone], Service support , Physical Exam Narrative General: Alert, oriented, no apparent distress HEENT: Atraumatic, normocephalic, poor dentition Eyes: Scleral icterus improving, extraocular movements grossly intact Neck: Supple Respiratory: Normal respiratory effort, no wheezes noted Cardiovascular: Regular rate and rhythm GI: Soft, nondistended Extremities: 2+ bilateral lower extremity edema some wrinkles noted Musculoskeletal: Moving all extremities Neuro: No overt focal neurological deficits Skin: Bilateral lower extremities red Psych: Cooperative Assessment & Plan Assessment/Plan (1) Bilateral leg edema: (2) Elevated liver enzymes: (3) History of hypothyroidism: (4) Acute hypokalemia: (5) Psoriasis: (6) GERD (gastroesophageal reflux disease): PLAN: Plan #BLE edema/increased shortness of breath/elevated liver function tests -Feel it is reasonable to admit patient to hospital given significant worsening of his lower extremity edema of unclear etiology that worsened despite conservative management as well as his jaundice and elevated liver function test as well as his shortness of breath that is now impeding his mobility -Bilateral lower extremity edema worsening and not responding to Lasix, chest x- ray did not demonstrate fluid overload, BNP mildly elevated at 177, if this is secondary to heart failure it appears to be primarily right-sided but may be more liver pathology given elevated liver function tests however if right-sided heart failure significant enough would also cause hepatic congestion -Will workup both hepatic and cardiac -Will obtain echocardiogram -Daily weights, I's and O's -Given patient's lack of improvement with Lasix and with elevated bicarb and appearing somewhat intravascularly volume depleted with slightly dry mucosa we will hold off on additional Lasix until further results are available -Incentive spirometry -Will obtain liver ultrasound -Will check hepatitis panel -Patient has been having increased shortness of breath with diminished exercise tolerance that is now affecting his mobility and has generalized wheezing, query if there could be component of COPD, will trial scheduled duonebs for his breathing as it does not appear to be related to fluid overload, if no improvement however will trial Lasix -Patient not tachycardic, not hypoxic, and not tachypneic and has bilateral lower extremity swelling so do not have high suspicion for PE, do not feel patient needs CTA at this time, suspect breathing is more likely related to his COPD -03/02: Echo normal, liver showed fatty liver, suspect this is the reason for his lower extremity edema, giving another trial of Lasix, liver function did improve today, patient's legs do look better today as well, advised elevation and will try to Javier wrap if patient can tolerate. In regards to patient's shortness of breath that is significantly improved with nebs, suspect will need to start daily inhaler when he leaves and he would benefit from following with PCP and potentially pulmonology # Atypical chest pain?cardiac etiology ruled out -Patient has intermittent sharp left lateral chest pain that is worse when he is laying down at night and not associated with exertion -Troponin within normal limits and EKG normal sinus rhythm with no evidence of ischemic change -Do not think patient has ACS at this time however echo to be ordered and repeat troponin ordered to be trended -Continue workup as above -Continue home aspirin -03/02: Echo within normal limits, cardiac etiology ruled out # Alcohol use disorder -Reportedly drinks 2 beers daily with last beer yesterday and occasionally more than that, will start CIWA with as needed Ativan, B12, thiamine, folate -03/02: Discussed patient's alcohol use with him, extensive motivational interviewing, sona Ashby with [employer] also discuss with him and provide resources. Patient seems motivated to quit. Continue thiamine folic acid, continue as needed Ativan # Hypokalemia -Replace with oral and IV by ED physician -Recheck after administration -03/02: Chronic medical issues: # Psoriasis -Uses ustekinumab injections every 3 months and confirmed he is taking this #GERD -Continue PPI #Hypothyroidism -Continue Synthroid -TSH low, will check free T4 -03/02: Free T4 is high, slight decrease in Synthroid dose #Chronic BPH with obstruction -Continue home medications #Tobacco use -Advise cessation -Nicotine replacement available if desired #DVT ppx: Lovenox subcu Sridevi Mena MD Time spent in the patient's overall evaluation,decision-making process, review of diagnostic data, adjustment of management, discussion with other providers, nursing nursing and ancillary staff involved in patient's care documentation, 40 minutes Charges/Coding Visit Charges Inpatient E&M: 23144 Subs Hosp L2
[2024-03-02] MEDS: Ensure Plus High Protein 120 ML LIQUID PO ×2 (18:22→21:34)
[2024-03-02] MEDS: Calcium (Elemental) 500 MG Tablet PO (18:27)
[2024-03-03 00:30] VITALS: PULSE 98; RESP 20
[2024-03-03] MEDS: Ipratropium/Albuterol Sulfate 3 ML AMPUL.NEB INHALATION ×2 (00:30→07:19)
[2024-03-03 04:00] VITALS: BP 130/83; PULSE 98; RESP 16; TEMP 36.9; O2SAT 93
[2024-03-03] MEDS: Levothyroxine 125 MCG Tablet PO (05:49)
[2024-03-03 06:00] VITALS: BMI 21.2
[2024-03-03 06:09] LABS: Hematocrit 40.3 % (40-54); Hemoglobin 13.8 g/dL (13.0-16.5); Mean Corp Hgb Conc 34.2 g/dL (32-36); Mean Corpuscular Hgb 37.3 pg (27.0-32.0); Mean Corpuscular Volume 108.9 fL (80-94); Mean Platelet Vol. 10.5 fl (6.2-12.0); Platelet Count 188 K/mm3 (150-450); RBC Distribution Width CV 13.4 % (11.6-14.6); RBC Distribution Width SD 54.4 fl (35.1-43.9); White Blood Count 7.4 K/mm3 (4.4-11.0)
[2024-03-03 06:14] LABS: HEPATITIS B SURFACE AG Negative (Negative); Hep C Antibodies Non Reactive (Non Reactive); Hepatitis A IgM Antibody Negative (Negative); Hepatitis B Core AB IgM Negative (Negative)
[2024-03-03 06:56] LABS: ALB/GLOB Ratio 0.5 RATIO (0.9-2.4); AST(SGOT) 87 U/L (15-37); Alanine Aminotransfer ALT/SGPT 65 U/L (16-61); Albumin, Serum 1.8 g/dL (3.2-5.0); Alkaline Phosphatase 104 U/L (45-117); Anion Gap 5 (5-15); BUN 5 mg/dL (7-18); BUN/Creat Ratio 12.4 RATIO (10-20); Calcium,Total 7.9 mg/dL (8.5-10.1); Chloride 95 mmol/L (98-107); EST Glomerular Filtration Rate 223 mL/min (>60); Est Glom Filt Rate - Afr Amer 270 mL/min (>60); Estimated Creatinine Clearance 101.48 ml/min; Globulin 3.5 g/dL (2.2-4.2); Glucose 73 mg/dL (74-106); Magnesium 1.5 mg/dL (1.6-2.6); Phosphorus 2.8 mg/dL (2.5-4.9); Potassium 3.3 mmol/L (3.5-5.1); Protein, Total 5.3 g/dL (6.4-8.2); Sodium Level 132 mmol/L (136-145)
[2024-03-03 07:20] VITALS: PULSE 93; RESP 18; O2SAT 95
[2024-03-03] MEDS: Magnesium Sulfate 4gm/100mL 4 GM/100 ML IV.SOLN. IV (08:41)
[2024-03-03] MEDS: Ensure Plus High Protein 120 ML LIQUID PO ×2 (08:44→13:46)
[2024-03-03] MEDS: Pantoprazole Sodium 20 MG Tablet PO (08:45)
[2024-03-03] MEDS: Folic Acid 1 MG Tablet PO (08:46)
[2024-03-03] MEDS: Thiamine Hydrochloride 100 MG Tablet PO (08:46)
[2024-03-03] MEDS: Tamsulosin HCl 0.4 MG Capsule PO (08:46)
[2024-03-03] MEDS: Calcium (Elemental) 500 MG Tablet PO ×2 (08:46→11:23)
[2024-03-03] MEDS: Aspirin 81 MG TAB.CHEW PO (08:46)
[2024-03-03] MEDS: Cyanocobalamin 500 MCG Tablet 1000 MCG PO (08:47)
[2024-03-03] MEDS: Enoxaparin 40 MG/0.4 ML Syringe SC (08:48)
[2024-03-03] MEDS: Nystatin 500,000 UNIT/5 ML PO.SYRINGE (WCH) 500000 UNIT PO ×2 (08:48→13:46)
[2024-03-03 09:00] VITALS: BP 115/79; PULSE 113; RESP 18; TEMP 36.7; O2SAT 93
[2024-03-03] MEDS: Potassium Chloride Oral Tablet 20 MEQ 40 MEQ PO (10:36)
--- NOTE | 2024-03-03 13:35 | DCINST_ITS ---
Discharge Instructions Diet Discharge Diet: 2000 mg Sodium Diet Activity Discharge Activity: - (Increase activity as tolerated) Follow Up Care Test Results: Test results from this visit will be discussed in further detail at your follow- up appointment, if applicable. Discharge Plan Admission Admit Date/Time: 03/01/24 13:21 Primary Reason for Your Visit: Lower extremity swelling Attending Provider: Sridevi Mena Primary Care Provider: Hebert Whaley Instructions Patient Instructions: Alcohol Addiction, Addiction Questionnaire, Addiction: Getting Help, Addiction: Your Treatment Options, Addiction Recovery Counseling Additional Instructions / Restrictions: DISCHARGE INSTRUCTIONS PLEASE READ *Please take this with you to your next doctors appointment* -It will be very important that you do not continue to drink alcohol, resources for help were provided during admission. You will also be prescribed naltrexone 50 mg daily to help decrease alcohol craving -It is advised to resume the 20 mg of Lasix prescribed by your outpatient physician -Advised to obtain compression stockings and wear these as tolerated -You will be sent in a prescription for a daily inhaler to help with your breathing, continue to also use your as needed home inhaler. You can consider outpatient pulmonology referral through your primary care physician's office if needed -You will be discharged with a prescription for magnesium and potassium which will you will take daily, you will likely be able to discontinue 1 or both of these depending on your clinical progress. -Would recommend lab work CMP and magnesium) to check your potassium, magnesium, and liver function in 2 to 3 days through your primary care physician's office. Please call their office upon discharge to obtain order for lab work. -You may need adjustments to your levothyroxine due to a low TSH however given your acute illness it is reasonable to recheck this through your primary care physician's office and have further adjustments made if still necessary at that time -A prescription of nystatin oral has been sent to your preferred pharmacy on file for an additional 5 days for thrush/Kristal in the mouth -Any newly prescribed medications have been sent to your preferred pharmacy on file ([facility] in [facility]) -Please call your primary care provider's office upon discharge to schedule a hospital follow up within 1 week. -For any concerning signs or symptoms please call 911 or proceed to the nearest emergency department Discharge Orders/Prescriptions Prescriptions: New naltrexone 50 mg tablet 50 mg PO DAILY Qty: 30 0RF Spiriva Respimat 2.5 mcg/actuation mist 2 puff inhalation DAILY Qty: 4 0RF magnesium oxide 400 mg (241.3 mg magnesium) tablet 400 mg PO DAILY Qty: 30 0RF potassium chloride 10 mEq capsule, extended release 10 meq PO DAILY Qty: 30 0RF nystatin 100,000 unit/mL Suspension 500,000 unit PO 4X/DAY 5 Days Qty: 100 0RF Continued multivitamin [Multiple Vitamins] 1 EACH tablet 1 ea PO DAILY ustekinumab 90 MG/ML syringe 90 mg subcut UD Rx Instructions: every 3 months albuterol sulfate 1 INHALER inhaler 1 - 2 puff inhalation Q4H PRN PRN (Reason: Wheezing) Qty: 1 0RF famotidine 20 MG tablet 20 mg PO DAILY aspirin 81 MG tablet,chewable 81 mg PO DAILY furosemide 20 mg tablet 20 mg PO DAILY levothyroxine 150 mcg tablet 150 mcg PO DAILY loperamide 2 mg capsule 2 mg PO DAILY PRN (Reason: diarrhea) omeprazole 20 mg tablet,delayed release (DR/EC) 20 mg PO QWEEK tamsulosin 0.4 mg capsule 0.4 mg PO DAILY Referrals / Follow Up: Hebert Whaley MD [Primary Care Provider] - Within 1 Week Disposition Disposition (needs filled in before D/C Order can be placed): Home, Self Care
--- NOTE | 2024-03-03 13:46 | DS.PCM_ITS ---
Providers Date of Admission: 03/01/24 Date of Discharge: 03/03/24 Primary Care Physician: Dr. Hebert Whaley MD Reason For Visit: BILATERAL EDEMA, ELEVATED LIVER DISEASE, ETOH USE, Diagnosis Discharge Diagnosis (1) Bilateral leg edema: Status: Acute Code(s): R60.0 - Localized edema (2) Elevated liver enzymes: Status: Acute Code(s): R74.8 - Abnormal levels of other serum enzymes (3) History of hypothyroidism: Status: Acute Code(s): Z86.39 - Personal history of other endocrine, nutritional and metabolic disease (4) Acute hypokalemia: Status: Acute Code(s): E87.6 - Hypokalemia (5) Psoriasis: Status: Chronic Code(s): L40.9 - Psoriasis, unspecified (6) GERD (gastroesophageal reflux disease): Status: Acute Code(s): K21.9 - Gastro-esophageal reflux disease without esophagitis (7) Fatty liver: Status: Acute Code(s): K76.0 - Fatty (change of) liver, not elsewhere classified Plan #BLE edema/fatty liver disease # Shortness of breath, suspect underlying COPD # Alcohol use disorder # Hypokalemia # Psoriasis #GERD #Hypothyroidism #Chronic BPH with obstruction #Tobacco use Medications at Discharge Home Medications multivitamin (Multiple Vitamins tablet) 1 ea PO DAILY SUPPLEMENT 08/21/18 albuterol sulfate 90 mcg/actuation aerosol inhaler 1 - 2 puff inhalation Q4H PRN PRN Wheezing ##1 12/11/19 aspirin 81 mg chewable tablet 81 mg PO DAILY heart health 12/11/19 famotidine 20 mg tablet 20 mg PO DAILY GERD 12/11/19 ustekinumab 90 mg/mL subcutaneous syringe 90 mg subcut UD PSORIASIS 12/11/19 furosemide 20 mg tablet 20 mg PO DAILY EDEMA 03/01/24 levothyroxine 150 mcg tablet 150 mcg PO DAILY HYPOTHYROIDISM 03/01/24 loperamide 2 mg capsule 2 mg PO DAILY PRN diarrhea 03/01/24 omeprazole 20 mg tablet,delayed release 20 mg PO QWEEK GERD 03/01/24 tamsulosin 0.4 mg capsule 0.4 mg PO DAILY bph 03/01/24 magnesium oxide 400 mg (241.3 mg magnesium) tablet 400 mg PO DAILY #30 tabs 03/03/24 naltrexone 50 mg tablet 50 mg PO DAILY #30 tabs 03/03/24 nystatin 100,000 unit/mL oral suspension 500,000 unit (5 mL) PO 4X/DAY 5 days #100 mL 03/03/24 potassium chloride 10 mEq capsule,extended release 10 meq PO DAILY #30 caps 03/03/24 tiotropium bromide 2.5 mcg/actuation mist for inhalation (Spiriva Respimat) 2 puff inhalation DAILY #4 grams 03/03/24 Hospital Course Summary of Care Provided Minutes Spent on Discharge: 35 Hospital Course: ELROY CARLSON, is a 68 M with history of GERD, hypothyroidism, alcohol use, BPH, psoriasis, tobacco use who presented to [facility] ED 03/01/2024 with worsening shortness of breath x 1 month and worsening lower extremity edema. He was prescribed Lasix on an outpatient basis but had continued worsening was also having shortness of breath prompting patient come to the ED. In the ED cardiac workup unremarkable but had elevated liver function test and bilirubin, overall doing generally unwell so hospitalist contacted for admission. Patient improved with leg elevation, cessation of alcohol, Lasix. Right upper quadrant demonstrated fatty liver, echo within normal limits, patient's breathing responded to inhalers. Discussed extensively with patient about alcohol cessation and he verbalized his understanding. Overall doing much better, lower extremity still swollen but improving and pain improving, patient comfortable discharge home. No new or acute complaints on day of discharge, discharge instructions as follows: -It will be very important that you do not continue to drink alcohol, resources for help were provided during admission. You will also be prescribed naltrexone 50 mg daily to help decrease alcohol craving -It is advised to resume the 20 mg of Lasix prescribed by your outpatient physician -Advised to obtain compression stockings and wear these as tolerated -You will be sent in a prescription for a daily inhaler to help with your breathing, continue to also use your as needed home inhaler. You can consider outpatient pulmonology referral through your primary care physician's office if needed -You will be discharged with a prescription for magnesium and potassium which will you will take daily, you will likely be able to discontinue 1 or both of these depending on your clinical progress. -Would recommend lab work CMP and magnesium) to check your potassium, magnesium, and liver function in 2 to 3 days through your primary care physician's office. Please call their office upon discharge to obtain order for lab work. -You may need adjustments to your levothyroxine due to a low TSH however given your acute illness it is reasonable to recheck this through your primary care physician's office and have further adjustments made if still necessary at that time -A prescription of nystatin oral has been sent to your preferred pharmacy on file for an additional 5 days for thrush/Kristal in the mouth -Any newly prescribed medications have been sent to your preferred pharmacy on file ([employer] [facility] in [facility]) -Please call your primary care provider's office upon discharge to schedule a hospital follow up within 1 week. -For any concerning signs or symptoms please call 911 or proceed to the nearest emergency department Physical Exam Narrative General: Alert, oriented, no apparent distress HEENT: Atraumatic, normocephalic, poor dentition Eyes: Scleral icterus improving, extraocular movements grossly intact Neck: Supple Respiratory: Normal respiratory effort, no wheezes noted Cardiovascular: Regular rate and rhythm GI: Soft, nondistended Extremities: 1+ bilateral lower extremity, wrinkles, erythema slightly improved Musculoskeletal: Moving all extremities Neuro: No overt focal neurological deficits Skin: Bilateral lower extremities red Psych: Cooperative Weight / BMI Weight Weight: 83.5 kg Body Mass Index (BMI) 21.2 ABG / Lab / Microbiology Data 03/03/24 05:00 03/03/24 05:00 Laboratory: Laboratory Results - last 24 hr 03/02/24 06:50: Hepatitis A IgM Ab Negative, Hep Bs Antigen Negative, Hep B Core IgM Ab Negative, Hepatitis C Ab (EIA) Non Reactive, Hep C Ab Comment Comment 03/03/24 05:00: WBC 7.4, RBC 3.70 L, Hgb 13.8, Hct 40.3, MCV 108.9 H, MCH 37.3 H , MCHC 34.2, RDW Std Deviation 54.4 H, RDW Coeff of Keysha 13.4, Plt Count 188, MPV 10.5, Sodium 132 L, Potassium 3.3 L, Chloride 95 L, Carbon Dioxide 32.0, Anion Gap 5, BUN 5 L, Creatinine 0.40 L, Estim Creat Clear Calc 101.48, Est GFR (MDRD) Af Amer 270, Est GFR (MDRD) Non-Af 223, BUN/Creatinine Ratio 12.4, Glucose 73 L, Calcium 7.9 L, Phosphorus 2.8, Magnesium 1.5 L, Total Bilirubin 3.40 H, AST 87 H , ALT 65 H, Alkaline Phosphatase 104, Total Protein 5.3 L, Albumin 1.8 L, Globulin 3.5, Albumin/Globulin Ratio 0.5 L D/C Instructions Discharge Diet: 2000 mg Sodium Diet Meaningful Use Info Meaningful Use Meaningful Use Diagnoses (Choose all that apply): None applicable Ischemic Stroke Statin Dosing Therapy Reference: STATIN DOSE THERAPY REFERENCE: * Patients > 75 years receive moderate or high dose statin therapy. * Patients 75 years or YOUNGER should receive HIGH intensity statin dose unless contraindicated. You will be required to document reason for non-treatment if statin daily dose does not meet guidelines. HIGH DOSE STATIN THERAPY DAILY Atorvastatin > than or = to 40 mg Rosuvastatin > than or = to 20 mg Amlodipine + Atorvastatin > than or = to 2.5/40 mg Ezetimibe + Simvastatin 10/80 mg Simvastatin 80mg Discharge Plan Admission Admit Date/Time: 03/01/24 13:21 Primary Reason for Your Visit: Lower extremity swelling Attending Provider: Sridevi Mena Primary Care Provider: Hebert Whaley Instructions Patient Instructions: Alcohol Addiction, Addiction Questionnaire, Addiction: Getting Help, Addiction: Your Treatment Options, Addiction Recovery Counseling Additional Instructions / Restrictions: DISCHARGE INSTRUCTIONS PLEASE READ *Please take this with you to your next doctors appointment* -It will be very important that you do not continue to drink alcohol, resources for help were provided during admission. You will also be prescribed naltrexone 50 mg daily to help decrease alcohol craving -It is advised to resume the 20 mg of Lasix prescribed by your outpatient physician -Advised to obtain compression stockings and wear these as tolerated -You will be sent in a prescription for a daily inhaler to help with your breathing, continue to also use your as needed home inhaler. You can consider outpatient pulmonology referral through your primary care physician's office if needed -You will be discharged with a prescription for magnesium and potassium which will you will take daily, you will likely be able to discontinue 1 or both of these depending on your clinical progress. -Would recommend lab work CMP and magnesium) to check your potassium, magnesium, and liver function in 2 to 3 days through your primary care physician's office. Please call their office upon discharge to obtain order for lab work. -You may need adjustments to your levothyroxine due to a low TSH however given your acute illness it is reasonable to recheck this through your primary care physician's office and have further adjustments made if still necessary at that time -A prescription of nystatin oral has been sent to your preferred pharmacy on file for an additional 5 days for thrush/Kristal in the mouth -Any newly prescribed medications have been sent to your preferred pharmacy on file ([employer] [facility] in [facility]) -Please call your primary care provider's office upon discharge to schedule a hospital follow up within 1 week. -For any concerning signs or symptoms please call 911 or proceed to the nearest emergency department Discharge Orders/Prescriptions Prescriptions: New naltrexone 50 mg tablet 50 mg PO DAILY Qty: 30 0RF Spiriva Respimat 2.5 mcg/actuation mist 2 puff inhalation DAILY Qty: 4 0RF magnesium oxide 400 mg (241.3 mg magnesium) tablet 400 mg PO DAILY Qty: 30 0RF potassium chloride 10 mEq capsule, extended release 10 meq PO DAILY Qty: 30 0RF nystatin 100,000 unit/mL Suspension 500,000 unit PO 4X/DAY 5 Days Qty: 100 0RF Continued multivitamin [Multiple Vitamins] 1 EACH tablet 1 ea PO DAILY ustekinumab 90 MG/ML syringe 90 mg subcut UD Rx Instructions: every 3 months albuterol sulfate 1 INHALER inhaler 1 - 2 puff inhalation Q4H PRN PRN (Reason: Wheezing) Qty: 1 0RF famotidine 20 MG tablet 20 mg PO DAILY aspirin 81 MG tablet,chewable 81 mg PO DAILY furosemide 20 mg tablet 20 mg PO DAILY levothyroxine 150 mcg tablet 150 mcg PO DAILY loperamide 2 mg capsule 2 mg PO DAILY PRN (Reason: diarrhea) omeprazole 20 mg tablet,delayed release (DR/EC) 20 mg PO QWEEK tamsulosin 0.4 mg capsule 0.4 mg PO DAILY Referrals / Follow Up: Hebert Whaley MD [Primary Care Provider] - Within 1 Week Disposition Disposition (needs filled in before D/C Order can be placed): Home, Self Care Charges/Coding Visit Charges Inpatient E&M: 10970 Disch Hosp >30min
[2024-03-03 14:11] VITALS: BP 115/79; PULSE 113; RESP 18; TEMP 36.7; O2SAT 93
== END 2024-03-03 14:46 | disposition home or self-care (01) | DRG 442 ==
LOC: ED 12:59 → PCU 13:46
PROVIDERS: Admitting Provider Internal Medicine; Emergency Provider Emergency Medicine; PCP Family Medicine; Visit Provider Internal Medicine
DX: K76.0 Fatty (change of) liver, not elsewhere classified (principal); N13.8 Other obstructive and reflux uropathy; J44.9 Chronic obstructive pulmonary disease, unspecified; E03.9 Hypothyroidism, unspecified; F10.90 Alcohol use, unspecified, uncomplicated; E87.6 Hypokalemia; L40.9 Psoriasis, unspecified; N40.1 Benign prostatic hyperplasia with lower urinary tract symptoms; R60.0 Localized edema; R07.89 Other chest pain; Z79.82 Long term (current) use of aspirin; Z79.890 Hormone replacement therapy; Z79.899 Other long term (current) drug therapy; Z87.891 Personal history of nicotine dependence
CPT/HCPCS: 36415; 71045; 76705; 80048; 80053; 80074; 80076; 83735; 83880; 84100; 84439; 84443; 84484; 85025; 85027; 93005; 93306; 94640; 94668; 97803; 99285; J7030; J7040; A4216; J0612; J1940

== ENCOUNTER → 2024-03-07 | Outpatient (CLI) | payer MEDICARE, OTHER, SELFPAY ==
[2024-03-07 12:36] LABS: ALB/GLOB Ratio 0.6 RATIO (0.9-2.4); AST(SGOT) 58 U/L (15-37); Alanine Aminotransfer ALT/SGPT 76 U/L (16-61); Albumin, Serum 2.2 g/dL (3.2-5.0); Alkaline Phosphatase 92 U/L (45-117); Anion Gap 4 (5-15); BUN 8 mg/dL (7-18); BUN/Creat Ratio 14.4 RATIO (10-20); Calcium,Total 8.6 mg/dL (8.5-10.1); Chloride 97 mmol/L (98-107); Creatinine, Serum 0.56 mg/dL (0.70-1.30); EST Glomerular Filtration Rate 154 mL/min (>60); Est Glom Filt Rate - Afr Amer 186 mL/min (>60); Glucose 118 mg/dL (74-106); Potassium 3.8 mmol/L (3.5-5.1); Protein, Total 6.2 g/dL (6.4-8.2); Sodium Level 133 mmol/L (136-145)
== END | disposition home or self-care (01) ==
LOC: MFPLAB 10:21
PROVIDERS: PCP Family Medicine; Visit Provider Family Medicine
DX: K74.60 Unspecified cirrhosis of liver (principal)
CPT/HCPCS: 36415; 80053; 82140

== ENCOUNTER → 2024-04-06 | Outpatient (CLI) | payer MEDICARE, OTHER, SELFPAY ==
[2024-04-06 18:02] LABS: BNP,B-Type NATRIURETIC PEPTIDE 126.4 pg/mL (0-100)
[2024-04-06 18:09] LABS: ALB/GLOB Ratio 0.6 RATIO (0.9-2.4); AST(SGOT) 17 U/L (15-37); Alanine Aminotransfer ALT/SGPT 14 U/L (16-61); Albumin, Serum 2.2 g/dL (3.2-5.0); Alkaline Phosphatase 92 U/L (45-117); Anion Gap 6 (5-15); BUN 7 mg/dL (7-18); BUN/Creat Ratio 6.2 RATIO (10-20); Calcium,Total 8.4 mg/dL (8.5-10.1); Chloride 102 mmol/L (98-107); Creatinine, Serum 1.13 mg/dL (0.70-1.30); EST Glomerular Filtration Rate 68 mL/min (>60); Est Glom Filt Rate - Afr Amer 82 mL/min (>60); Glucose 75 mg/dL (74-106); Potassium 3.5 mmol/L (3.5-5.1); Protein, Total 6.2 g/dL (6.4-8.2); Sodium Level 137 mmol/L (136-145); Thyroid Stim Hormone (TSH) 0.052 uIU/mL (0.358-3.740)
[2024-04-08 07:06] LABS: GGTP 11 IU/L (0-65)
== END | disposition home or self-care (01) ==
LOC: MFPLAB 15:44
PROVIDERS: PCP Family Medicine; Visit Provider Family Medicine
DX: F10.10 Alcohol abuse, uncomplicated (principal); R60.9 Edema, unspecified
CPT/HCPCS: 36415; 80053; 82977; 83880; 84443

== ENCOUNTER → 2024-05-30 | Outpatient (CLI) | payer MEDICARE, OTHER, SELFPAY ==
[2024-05-30 18:10] LABS: Prothrombin Time (Protime)PT. 12.9 SECONDS (11.7-14.9)
[2024-05-30 18:13] LABS: Hematocrit 36.7 % (40-54); Hemoglobin 12.2 g/dL (13.0-16.5); Mean Corp Hgb Conc 33.2 g/dL (32-36); Mean Corpuscular Hgb 32.1 pg (27.0-32.0); Mean Corpuscular Volume 96.6 fL (80-94); Mean Platelet Vol. 9.8 fl (6.2-12.0); Platelet Count 344 K/mm3 (150-450); RBC Distribution Width CV 15.4 % (11.6-14.6); White Blood Count 7.5 K/mm3 (4.4-11.0)
[2024-05-30 18:41] LABS: ALB/GLOB Ratio 0.6 RATIO (0.9-2.4); AST(SGOT) 21 U/L (15-37); Alanine Aminotransfer ALT/SGPT 12 U/L (16-61); Albumin, Serum 2.8 g/dL (3.2-5.0); Alkaline Phosphatase 68 U/L (45-117); Anion Gap 3 (5-15); BUN 26 mg/dL (7-18); BUN/Creat Ratio 6.8 RATIO (10-20); Calcium,Total 8.8 mg/dL (8.5-10.1); Chloride 102 mmol/L (98-107); Creatinine, Serum 3.85 mg/dL (0.70-1.30); EST Glomerular Filtration Rate 17 mL/min (>60); Est Glom Filt Rate - Afr Amer 20 mL/min (>60); Globulin 4.4 g/dL (2.2-4.2); Glucose 88 mg/dL (74-106); Potassium 4.6 mmol/L (3.5-5.1); Protein, Total 7.2 g/dL (6.4-8.2); Sodium Level 133 mmol/L (136-145)
[2024-06-01 04:07] LABS: AFP, Tumor Marker 2.5 ng/mL (0.0-8.4)
== END | disposition home or self-care (01) ==
LOC: MTLAB 14:55
PROVIDERS: PCP Family Medicine; Referring Provider Internal Medicine Gastroenterology; Visit Provider Internal Medicine Gastroenterology
DX: B17.9 Acute viral hepatitis, unspecified (principal)
CPT/HCPCS: 36415; 80053; 82105; 85027; 85610

== ENCOUNTER → 2024-06-06 | Outpatient (CLI) | payer MEDICARE, OTHER, SELFPAY ==
[2024-06-06 18:02] LABS: Anion Gap 5 (5-15); BUN 27 mg/dL (7-18); BUN/Creat Ratio 7.4 RATIO (10-20); Calcium,Total 8.7 mg/dL (8.5-10.1); Chloride 102 mmol/L (98-107); Creatinine, Serum 3.65 mg/dL (0.70-1.30); EST Glomerular Filtration Rate 18 mL/min (>60); Est Glom Filt Rate - Afr Amer 21 mL/min (>60); Glucose 84 mg/dL (74-106); Potassium 4.2 mmol/L (3.5-5.1); Sodium Level 131 mmol/L (136-145)
[2024-06-12 16:10] LABS: QNTFERON TB Mitogen Value > 10.00 IU/mL (.); QNTFERON TB Nil Value 0.01 IU/mL (.); QNTFERON TB1+ Ag Value 0.01 IU/mL (.); QNTFERON TB2+ Ag Value 0 IU/mL (.); QNTIFERON TB Positive Criteria Negative (Negative)
== END | disposition home or self-care (01) ==
LOC: MTLAB 15:36
PROVIDERS: Dermatology; PCP Family Medicine; Referring Provider Family Medicine; Visit Provider Family Medicine
DX: N19 Unspecified kidney failure (principal); Z79.899 Other long term (current) drug therapy
CPT/HCPCS: 36415; 80048; 86480

== ENCOUNTER → 2024-06-13 | Outpatient (CLI) | payer MEDICARE, OTHER, SELFPAY ==
--- NOTE | 2024-06-13 09:52 | US_ITS ---
STUDY: ABDOMINAL ULTRASOUND - ELASTOGRAPHY REASON FOR VISIT: Male, 68 years old. Cirrhosis. TECHNIQUE: Liver stiffness measurements were obtained on a [employer] RS 85 ultrasound machine using a CA 1-7 probe following the U guidelines. 3 measurements were obtained using a 2-D-SWE method. TheIQR/M was 12% suggesting a quality data set. TECHNICAL QUALITY: Adequate. COMPARISON: None. FINDINGS: Liver: There is no demonstrated mass lesion. Median liver stiffness measured 9.8 kPa. Abdomen: There is no demonstrated mass lesion. US/Elastography Parenchyma/Organ IMPRESSION: Liver stiffness measures 9.8 kPa compatible with F2-F3 (Mild to moderate liver fibrosis) Metavir score. Electronically Signed: Sami Bess MD at 12:04 EST ,
== END | disposition home or self-care (01) ==
PROVIDERS: PCP Family Medicine; Referring Provider Internal Medicine Gastroenterology; Visit Provider Internal Medicine Gastroenterology
DX: K74.60 Unspecified cirrhosis of liver (principal)
CPT/HCPCS: 76981

== ENCOUNTER → 2024-06-26 | Outpatient (CLI) | payer MEDICARE, OTHER, SELFPAY ==
[2024-06-26 11:50] LABS: Albumin, Serum 3.2 g/dL (3.2-5.0); BUN 25 mg/dL (7-18); BUN/Creat Ratio 5.9 RATIO (10-20); Chloride 99 mmol/L (98-107); Creatinine, Serum 4.23 mg/dL (0.70-1.30); EST Glomerular Filtration Rate 15 mL/min (>60); Est Glom Filt Rate - Afr Amer 18 mL/min (>60); Glucose 85 mg/dL (74-106); Phosphorus 3.5 mg/dL (2.5-4.9); Potassium 5.1 mmol/L (3.5-5.1); Sodium Level 130 mmol/L (136-145)
[2024-06-26 11:55] LABS: Osmolality, Urine 244 mOsm/KG
[2024-06-26 12:08] LABS: Urine Sodium 57 mmol/L (Not Establ.)
== END | disposition home or self-care (01) ==
LOC: POLAB3 10:47
PROVIDERS: PCP Family Medicine; Visit Provider Internal Medicine Nephrology
DX: N17.9 Acute kidney failure, unspecified (principal); E87.1 Hypo-osmolality and hyponatremia
CPT/HCPCS: 36415; 80069; 82570; 83935; 84300

== ENCOUNTER 2024-08-20 09:02 | Inpatient (IN) | payer MEDICARE, OTHER, SELFPAY ==
[2024-08-20 09:03] VITALS: BP 170/100; PULSE 74; RESP 14; TEMP 36.7; O2SAT 94; BMI 21.0
--- NOTE | 2024-08-20 09:11 | CT_ITS ---
EXAM: CT Head Without Intravenous Contrast CLINICAL INDICATION: TECHNIQUE: Axial computed tomography images of the head/brain without intravenous contrast. This CT exam was performed using one or more of the following dose reduction techniques: automated exposure control, adjustment of the mA and/or kV according to patient size, and/or use of iterative reconstruction technique. COMPARISON: No relevant prior studies available. FINDINGS: BRAIN AND EXTRA-AXIAL SPACES: Areas of decreased attenuation in the deep cerebral white matter are consistent with small vessel ischemic/degenerative changes. No acute intracranial hemorrhage, midline shift or mass effect. If symptoms persist, further evaluation with MRI is recommended. BONES/JOINTS: Unremarkable. No acute fracture. SOFT TISSUES: Unremarkable. SINUSES: Air-fluid level in the left maxillary sinus. MASTOID AIR CELLS: Unremarkable as visualized. No mastoid effusion. OTHER FINDINGS: Dated 01/06/2022. CT/Brain/Head without Contrast IMPRESSION: 1. Small vessel ischemic/degenerative changes. 2. No acute intracranial hemorrhage, midline shift or mass effect. If symptoms persist, further evaluation with MRI is recommended. Reading Location: [facility]
[2024-08-20] MEDS: 0.9% Normal Saline (1000mL) 1,000 ML 1000 ML IV (09:18)
--- NOTE | 2024-08-20 09:25 | EDS_ITS ---
HPI History of Present Illness Chief Complaint: Confusion Detail of Chief Complaint: Confusion Informant: family Onset/Context/Timing Onset: - (Unknown.) Context: - (Unknown) Timing: - (Unknown) Quality: Patient does not know age and detail HPI narrative Location: Not applicable Current Severity: Mild Maximum Severity: Moderate Worsened by: Unknown Relieved by: Presumed nothing Associated Symptoms Associated Symptoms: Frequency Narrative Narrative: Patient is a 68-year-old male. He was last seen by us on . He apparently did not visit family on because of weather and concerned he may fall and hurt himself. Patient was brought in by EMS. He was found sitting in a chair by EMS. He is confused and disoriented. The son informed the nurse after I walked out that he went to the neighbor's house tween 4 AM and 5 AM asking for water. He does endorse thirst and dry mouth. He denies headache, visual, ocular auditory symptoms. He denies trouble with speech or swallowing. When asked if he has trouble with speech or swallowing his response was I am thirsty and wants something to drink. He reported his age was 60 when in fact it is 68. He does know the month and year but does not know the day of the week or day of the month. When asked if he has medical problems he states he takes pills. He made a comment did not make sense regarding thyroid disease. When asked to clarify he says the pill is very small. Based on review of prior records he has history of hypothyroidism, hyponatremia, hypokalemia, vertigo for greater than 5 years with negative workup. He is on meclizine. Prior similar symptoms: No Recent Illness/Hospitalization: No [facility] Medical History Vertigo GERD (gastroesophageal reflux disease) Hypothyroidism Home Medications ?Medication ?Instructions ?Recorded ?Last Taken ?Type multivitamin (Multiple Vitamins 1 ea PO DAILY SUPPLEME NT 08/21/18 Unknown H istory tablet) albuterol sulfate 90 mcg/actuation 1 - 2 puff inhalati on Q4H PRN PRN 12/11/19 Unknown Rx aerosol inhaler Wheezing ##1 aspirin 81 mg chewable tablet 81 mg PO DAILY heart hea lth 12/11/19 08/20/24 History ustekinumab 90 mg/mL subcutaneous 90 mg subcut UD PSOR IASIS 12/11/19 11/27/19 History syringe levothyroxine 150 mcg tablet 150 mcg PO DAILY HYPOTHYR OIDISM 03/01/24 08/20/24 History magnesium oxide 400 mg (241.3 mg 400 mg PO DAILY #30 t abs 03/03/24 Unknown Rx magnesium) tablet betamethasone, augmented 0.05 % 1 applic topical BID P RN itch 08/20/24 08/20/24 History topical cream meclizine 25 mg chewable tablet 25 mg PO TID PRN dizzi ness 08/20/24 Unknown History Allergy/AdvReac Type Severity Reaction Status Date / Time codeine AdvReac Intermediate Upset Verified 03/01/24 11:06 Stomach Family History Father CAD (coronary artery disease) Social History (Updated 08/20/24 @ 09:[address] Be Singh MD) household members: none Smoking Status: Light Smoker (<10/day) alcohol intake: former substance use type: does not use ROS ROS ED Review of Systems ROS Unobtainable: due to mental status Constitutional Constitutional ED: Reports weight loss; Denies chills, fever(s), subjective or sweats Eyes Eyes: Denies blurry vision or change in vision ENT ENT ED: Denies ear pain, rhinorrhea or sore throat Cardiovascular Cardiovascular: Denies chest pain, orthopnea, palpitations or paroxysmal nocturnal dyspnea Respiratory/Chest Respiratory/Chest: Denies cough, dyspnea, dyspnea on exertion, orthopnea or paroxysmal nocturnal dyspnea Gastrointestinal Gastrointestinal: Denies abdominal pain, diarrhea, melena, nausea or vomiting Genitourinary Genitourinary ED: Reports urinary frequency; Denies dysuria or hematuria Musculoskeletal Musculoskeletal: Denies arthralgias, back pain or myalgias Integumentary Denies rash Neurologic Neurologic: Reports weakness; Denies headache(s) or paresthesias Endocrine Endocrinology: Denies cold intolerance or heat intolerance Hematologic/Lymphatic Hematologic/Lymphatic: Reports systems reviewed and no addt'l complaints, except as documented EXAM Physical Exam Const Vital Signs: 08/20/24 09:03 Temperature 98.0 F Temperature Source Oral Pulse Rate 74 Respiratory Rate 14 Blood Pressure 170/100 H Blood Pressure Mean 123 Pulse Ox 94 Oxygen Delivery Method Room Air Positive well nourished and well developed; Negative for contractures or unkempt Constitutional Narrative: Send comment he does not look well. Blood pressure is elevated. General Appearance ED: well developed and NAD; Negative for unkempt, contractures, cyanotic or diaphoretic HEENT Reports dry mucous membranes HEENT Narrative: Head is atraumatic no cephalic. Ears normal. Nares patent. Uvula midline. No deviation protrusion. Mouth ED: Yes dry mucous membranes Mouth: dry mucous membranes Eyes PERRL and EOMs intact bilaterally General Eye ED: Negative for pale conjunctiva or scleral icterus Neck no lymphadenopathy, supple and no JVD Resp normal respiratory effort and No clear to auscultation bilaterally Resp Narrative: Patient has adventitial breath sounds. Cardio regular rate, regular rhythm, S1 normal heart sound, S2 normal heart sound and no murmurs GI normal to inspection, nondistended, normoactive bowel sounds, non-tender, non- distended and no masses; Negative for hepatosplenomegaly Back/Spine no CVA tenderness Extremity Negative for normal to inspection Extremity Narrative: Venous stasis dermatitis right and left lower extremity. He also has dry skin. Neuro No oriented x3, CN's II-XII intact bilaterally and no sensory deficits noted Sensorium / Orientation: alert Motor Exam: strength 5/5 throughout Psych mental status grossly normal Appearance: Negative for unkempt Skin Skin Narrative: Patient has bruises noted upper extremity and abrasions. He states he runs into things. Son states he has had vertigo for greater than 5 years. He has had a CAT scan MRI done with no cause of his vertigo. He is on meclizine per son. Patient then made comment that his doctor is Dr. Whaley and asked his son if Dr. Whaley is a good doctor. Trauma: abrasion MDM MDM MDM Narrative Medical decision making narrative: Need to evaluate for diabetes. BGT was obtained since he is complaining of frequency and polydipsia. Need to rule out electrolyte abnormality, infectious cause specifically UTI with the complaint of frequency. Also need to evaluate for possible pneumonia since she has abnormal adventitial signs. This may also represent cancer because of unintentional weight loss. His pants are quite loose on him and son even states he is lost weight since he was last seen . CT of the head was obtained to evaluate for intracranial pathology that would explain his acute change in mental status. History & Record Review Additional record(s) reviewed:: Prior inpatient record (Admitted February 2024 for electrolyte abnormality. January 2023 admitted for hip fracture at outside facility. December 2021 admitted for chest pain determined not to be cardiac.), Prior outpatient record (Outside reports indicate patient has unspecified cirrhosis of the liver.), Prior ED visit and Prior labs Lab Data Attestation: I reviewed the patient's lab results. Lab results narrative: CBC Reveals mild anemia with slight macrocytic indices. Patient was noted to have anemia on May 30 with an H&H of 12.2 and 36.7. MCV was elevated at that time as well. Patient has chronic mild hyponatremia. BUN and creatinine March 2024 were normal. BUN and creatinine on 05 30 was 26 and 3.85. BUN and creatinine was 25 and 4.23 June 20. BUN and creatinine today are elevated at 44 and 5.75. Labs: Laboratory Results - last 24 hr 08/20/24 08/20/24 08/20/24 09:09 09:14 09:57 WBC 8.3 RBC 3.41 L Hgb 11.2 L Hct 32.8 L MCV 96.2 H MCH 32.8 H MCHC 34.1 RDW Std Deviation 50.4 H RDW Coeff of Keysha 14.3 Plt Count 375 MPV 9.2 Immature Gran % (Auto) 0.200 Neut % (Auto) 66.3 Lymph % (Auto) 12.7 L [place] % (Auto) 7.5 Eos % (Auto) 12.2 H Baso % (Auto) 1.1 H Absolute Neuts (auto) 5.5 Absolute Lymphs (auto) 1.05 Nucleated RBC % 0 ESR 18 Sodium 131 L Potassium 5.1 Chloride 102 Carbon Dioxide 23.0 Anion Gap 6 BUN 44 H Creatinine 5.75 H Estim Creat Clear Calc 13.98 Est GFR (MDRD) Af Amer 13 L Est GFR (MDRD) Non-Af 10 L BUN/Creatinine Ratio 7.7 L Glucose 90 Calcium 9.0 Total Bilirubin 0.50 AST 36 ALT 16 Alkaline Phosphatase 54 Total Protein 7.6 Albumin 3.4 Globulin 4.2 Albumin/Globulin Ratio 0.8 L Urine Color Yellow Urine Clarity Clear Urine pH 5.0 Ur Specific [place] 1.010 Urine Protein Negative Urine Glucose (UA) Normal Urine Ketones Negative Urine Occult Blood Negative Urine Nitrite Negative Urine Bilirubin Negative Urine Urobilinogen Normal Ur Leukocyte Esterase 25 H Urine RBC 0 SEEN Urine WBC 0-5 SEEN Ur Squamous Epith Cells 0 SEEN Urine Bacteria 0 SEEN Urine Mucus 0 SEEN POC Glucose 74 Urinalysis is unremarkable. Patient is still confused. Patient states she is taken ibuprofen. This is probably the cause of his acute on chronic kidney injury since March. Radiography Chest X-Ray - ED: 2 View and Read by ED Physician (Independently and reviewed by me at 0956 is chronic changes. Patient has significant blood on the right side. Cardiac silhouette size normal. Hemidiaphragms are normal. Hilum reveals no fullness or mass. Osseous structures reveal some chronic degenerative changes otherwise negative.) Diagnostic Testing: Clinical Impression(s) from Imaging Studies Brain CT 08/20/24 09:11 IMPRESSION: 1. Small vessel ischemic/degenerative changes. 2. No acute intracranial hemorrhage, midline shift or mass effect. If symptoms persist, further evaluation with MRI is recommended. Reading Location: [facility] CT of the head without contrast reveals air-fluid level left maxillary sinus. There is no evidence of fracture. There is no evidence of subdural hematoma, epidural hematoma, vasogenic edema, traumatic or atraumatic subarachnoid hemorrhage or intraparenchymal bleed. Awaiting formal read by radiologist [id number]. Discharge Plan Triage Chief Complaint: Confusion ED Provider: Be Singh Dx/Rx/DC Orders Clinical Impression: Acute alteration in mental status, Hyponatremia, History of hypothyroidism, Acute kidney injury superimposed on stage 4 chronic kidney disease, Elevated blood pressure reading with diagnosis of hypertension, Anemia in chronic renal disease, Frequency of urination, Chronic vertigo Prescriptions: No Action multivitamin [Multiple Vitamins] 1 EACH tablet 1 ea PO DAILY ustekinumab 90 MG/ML syringe 90 mg subcut UD Rx Instructions: every 3 months albuterol sulfate 1 INHALER inhaler 1 - 2 puff inhalation Q4H PRN PRN (Reason: Wheezing) Qty: 1 0RF aspirin 81 MG tablet,chewable 81 mg PO DAILY levothyroxine 150 mcg tablet 150 mcg PO DAILY magnesium oxide 400 mg (241.3 mg magnesium) tablet 400 mg PO DAILY Qty: 30 0RF betamethasone, augmented 0.05 % cream 1 applic topical BID PRN meclizine 25 mg tablet,chewable 25 mg PO TID PRN Primary Care Provider: Hebert Whaley Referrals: Hebert Whaley MD [Primary Care Provider] - Print Language: Moroccan Disposition Disposition: Acute Care [facility]
[2024-08-20 09:31] LABS: Bedside Glucose 74 mg/dL (74-106)
--- NOTE | 2024-08-20 09:35 | RAD_ITS ---
EXAM: XR Chest, 2 Views CLINICAL INDICATION: TECHNIQUE: Frontal and lateral views of the chest. COMPARISON: No relevant prior studies available. FINDINGS: LUNGS AND PLEURAL SPACES: Unremarkable. No consolidation. No pneumothorax. HEART: Unremarkable. No cardiomegaly. MEDIASTINUM: Unremarkable. Normal mediastinal contour. BONES/JOINTS: Unremarkable. No acute fracture. RAD/Chest PA and Lateral IMPRESSION: No acute cardiopulmonary process. Reading Location: [facility]
[2024-08-20 09:48] LABS: Erythrocyte Sedimentation Rate 18 mm/hr (0-20)
[2024-08-20 09:50] LABS: ALB/GLOB Ratio 0.8 RATIO (0.9-2.4); AST(SGOT) 36 U/L (15-37); Alanine Aminotransfer ALT/SGPT 16 U/L (16-61); Albumin, Serum 3.4 g/dL (3.2-5.0); Alkaline Phosphatase 54 U/L (45-117); Anion Gap 6 (5-15); BUN 44 mg/dL (7-18); BUN/Creat Ratio 7.7 RATIO (10-20); Chloride 102 mmol/L (98-107); Creatinine, Serum 5.75 mg/dL (0.70-1.30); EST Glomerular Filtration Rate 10 mL/min (>60); Est Glom Filt Rate - Afr Amer 13 mL/min (>60); Estimated Creatinine Clearance 13.98 ml/min; Globulin 4.2 g/dL (2.2-4.2); Glucose 90 mg/dL (74-106); Potassium 5.1 mmol/L (3.5-5.1); Protein, Total 7.6 g/dL (6.4-8.2); Sodium Level 131 mmol/L (136-145)
[2024-08-20 09:51] LABS: Absolute Lymphocyte Count 1.05 X10^3/uL (0.83-4.51); Absolute Neutrophil Count 5.5 X10^3/uL (2.0-7.7); Basophil# 0.09 X10^3/uL; Basophil% 1.1 % (0-1); Eosinophil# 1.01 X10^3/uL; Eosinophils% 12.2 % (0-5); Hematocrit 32.8 % (40-54); Hemoglobin 11.2 g/dL (13.0-16.5); Lymphocyte # 1.05 X10^3/ul (0.83-4.51); Lymphocyte % 12.7 % (19-41); Mean Corp Hgb Conc 34.1 g/dL (32-36); Mean Corpuscular Hgb 32.8 pg (27.0-32.0); Mean Corpuscular Volume 96.2 fL (80-94); Mean Platelet Vol. 9.2 fl (6.2-12.0); Monocyte# 0.62 X10^3/uL; Monocyte% 7.5 % (0-10); NRBC Flagged by Analyzer 0 % (0-5); Neutrophil # 5.48 X10^3/uL (2.7-7.7); Neutrophil % 66.3 % (47-70); Platelet Count 375 K/mm3 (150-450); RBC Distribution Width CV 14.3 % (11.6-14.6); RBC Distribution Width SD 50.4 fl (35.1-43.9); Red Blood Count 3.41 M/mm3 (4.6-6.2); White Blood Count 8.3 K/mm3 (4.4-11.0)
[2024-08-20 10:03] LABS: Bacteria 0 SEEN /hpf (None Seen); Mucous, Urine 0 SEEN /hpf (<or=2+); Red Blood Cells-Urine 0 SEEN /hpf (0-5); Squamous Epithelial Cells - UA 0 SEEN /hpf (0-5)
[2024-08-20 10:20] LABS: Color, Urine Yellow (Yellow); Glucose, Dipstick Normal (Normal); Ketone-Dipstick Negative (Negative); Leukocyte Esterase-Dipstick 25 /ul (Negative); Nitrite-Dipstick Negative (Negative); Occult Blood-Urine Negative /ul (Negative); Protein-Dipstick Negative (Negative); Urine Bilirubin Dipstick Negative (Negative); Urine Clarity Clear (Clear); Urine Urobilinogen Normal (Normal)
[2024-08-20 10:26] LABS: White Blood Cells 0-5 SEEN /hpf (0-5)
--- NOTE | 2024-08-20 10:47 | PCM.HP.STD ---
HPI - General General Date of Admission: 08/20/24 Date of Service: 08/20/24 Chief Complaint: confusion HPI Narrative ABBASIRashida WRIGHTECE, is a 68 M with a PMH as outlined who presents via the ED on 08/20/2024 with a complaint of confusion. He was found by hte EMS confused, sitting in a chair. He apparently went to his neighbor's house between 4-5am on the day of admission asking for water as he was thirsty. Patient however said he was fine and did not know why he was even in the hospital. His son was by him and stated that patient had been quite confused of late. Patient denied any fever, any chills, any nausea or any vomiting or any other symptoms. Patient said he drank about 5 beers daily with his last drink being the day before admission. He also vapes occasionally but denies any recreational drug use. Review of systems otherwise negative within the limits of patient's answers due to his confusion. Vitals in the ED were BP of 170/100., TX of 74, RR of 14 and temp of 98F. He was saturating at 94% on room air. CBC showed Hb of 11.2, wbc of 8.3 and platelets of 375. Chemistry showed sodium of 131, potassium of 5.1 and Cr of 5.75. Urinalysis showed no evidence of UTI. Blood glucose level was 74. CT brain showed evidence of small vessel ischemic changes and no intracranial hemorrhage, midline shift or mass effect. He is being admitted to be managed for IFEANYI on CKD and acute encephalopathy. [facility] Medical History Vertigo GERD (gastroesophageal reflux disease) Hypothyroidism Home Medications ?Medication ?Instructions ?Recorded ?Last Taken ?Type multivitamin (Multiple Vitamins 1 ea PO DAILY SUPPLEMENT 08/21/18 Unknown History tablet) albuterol sulfate 90 mcg/actuation 1 - 2 puff inhalation Q4H PRN PRN 12/11/19 Unknown Rx aerosol inhaler Wheezing ##1 aspirin 81 mg chewable tablet 81 mg PO DAILY heart health 12/11/19 08/20/24 History ustekinumab 90 mg/mL subcutaneous 90 mg subcut UD PSORIASIS 12/11/19 11/27/19 History syringe levothyroxine 150 mcg tablet 150 mcg PO DAILY HYPOTHYROIDISM 03/01/24 08/20/24 History magnesium oxide 400 mg (241.3 mg 400 mg PO DAILY #30 tabs 03/03/24 Unknown Rx magnesium) tablet betamethasone, augmented 0.05 % 1 applic topical BID PRN itch 08/20/24 08/20/24 History topical cream meclizine 25 mg chewable tablet 25 mg PO TID PRN dizziness 08/20/24 Unknown History Allergy/AdvReac Type Severity Reaction Status Date / Time codeine AdvReac Intermediate Upset Verified 03/01/24 11:06 Stomach Family History Father CAD (coronary artery disease) Social History (Updated 08/20/24 @ 09:[address] Be Singh MD) household members: none Smoking Status: Light Smoker (<10/day) alcohol intake: former substance use type: does not use ROS Constitutional Constitutional: Reports fatigue, malaise and weakness; Denies anorexia, chills or fever(s) Eyes Eyes: Denies change in vision ENT HEENT: Denies dysphagia, headache(s) or sore throat Cardiovascular Cardiovascular: Denies chest pain, dyspnea on exertion, edema, lightheadedness, orthopnea, palpitations, paroxysmal nocturnal dyspnea, rapid heart rate or syncope Respiratory/Chest Respiratory/Chest: Denies cough, dyspnea, productive cough, shortness of breath at rest or shortness of breath with exertion Gastrointestinal Gastrointestinal: Denies abdominal pain, constipation, diarrhea, nausea or vomiting Genitourinary Genitourinary: Denies burning urination or dysuria Musculoskeletal Musculoskeletal: Denies arthralgias Neurologic Neurologic: Reports confusion; Denies dizziness, focal weakness, headache(s), numbness, paresthesias, seizure-like activity, seizures, syncope, tingling or tremor(s) Psychiatric Psychiatric: Denies anxiety or depression Endocrine Endocrinology: Denies change in body appearance Hematologic/Lymphatic Hematologic/Lymphatic: Denies anemia Vital Signs Vital Signs Vital Signs: 08/20/24 09:03 Temperature 98.0 F Temperature Source Oral Pulse Rate 74 Respiratory Rate 14 Blood Pressure 170/100 H Blood Pressure Mean 123 Pulse Ox 94 Oxygen Delivery Method Room Air Weight Weight: 182 lb 5.156 oz Body Mass Index (BMI) 21.0 Physical Exam Const alert and no apparent distress General Appearance: cooperative Orientation / Consciousness: confused HEENT normocephalic and head/scalp atraumatic HEENT Narrative: dry oral mucosa Eyes PERRL, EOMs intact bilaterally and conjunctivae normal Neck no lymphadenopathy and supple Resp normal respiratory effort, no retractions, no use of accessory muscles and clear to auscultation bilaterally Cardio regular rate, regular rhythm, S1 normal heart sound, S2 normal heart sound and no murmurs GI normal to inspection, nondistended, normoactive bowel sounds, soft to palpation, non-tender and non-distended Extremity normal to inspection and full ROM Extremity Narrative: minimal 1+ edema of lower extremities bilaterally. Neuro oriented x3, CN's II-XII intact bilaterally, moves all extremities and no focal motor deficits Sensorium / Orientation: awake and alert Motor Exam: strength 5/5 throughout Psych affect normal Results Lab / Micro Data 08/20/24 09:14 08/20/24 09:14 Labs: Laboratory Results - last 24 hr 08/20/24 09:09: POC Glucose 74 08/20/24 09:14: WBC 8.3, RBC 3.41 L, Hgb 11.2 L, Hct 32.8 L, MCV 96.2 H, MCH 32.8 H, MCHC 34.1, RDW Std Deviation 50.4 H, RDW Coeff of Keysha 14.3, Plt Count 375, MPV 9.2, Immature Gran % (Auto) 0.200, Neut % (Auto) 66.3, Lymph % (Auto) 12.7 L, [place] % (Auto) 7.5, Eos % (Auto) 12.2 H, Baso % (Auto) 1.1 H, Absolute Neuts (auto) 5.5, Absolute Lymphs (auto) 1.05, Nucleated RBC % 0, ESR 18, Sodium 131 L, Potassium 5.1, Chloride 102, Carbon Dioxide 23.0, Anion Gap 6, BUN 44 H, Creatinine 5.75 H, Estim Creat Clear Calc 13.98, Est GFR (MDRD) Af Amer 13 L, Est GFR (MDRD) Non-Af 10 L, BUN/Creatinine Ratio 7.7 L, Glucose 90, Calcium 9.0, Total Bilirubin 0.50, AST 36, ALT 16, Alkaline Phosphatase 54, Total Protein 7.6, Albumin 3.4, Globulin 4.2, Albumin/Globulin Ratio 0.8 L 08/20/24 09:57: Urine Color Yellow, Urine Clarity Clear, Urine pH 5.0, Ur Specific [place] 1.010, Urine Protein Negative, Urine Glucose (UA) Normal, Urine Ketones Negative, Urine Occult Blood Negative, Urine Nitrite Negative, Urine Bilirubin Negative, Urine Urobilinogen Normal, Ur Leukocyte Esterase 25 H, Urine RBC 0 SEEN, Urine WBC 0-5 SEEN, Ur Squamous Epith Cells 0 SEEN, Urine Bacteria 0 SEEN, Urine Mucus 0 SEEN Imaging Radiology Impression Brain CT 08/20/24 09:11 IMPRESSION: 1. Small vessel ischemic/degenerative changes. 2. No acute intracranial hemorrhage, midline shift or mass effect. If symptoms persist, further evaluation with MRI is recommended. Reading Location: [facility] Assessment & Plan Assessment/Plan (1) Acute alteration in mental status: (2) History of hypothyroidism: PLAN: Plan #Acute encephalopathy Concern for Wernicke's encephalopathy in light of chronic alcohol abuse as well as severe hypothyroidism in light of markedly elevated TSH Patient admitted with a complaint of confusion. He apparently went to his neighbors out of between 4 AM and 5 AM today asking for water. According to patient's son patient has been quite confused recently. He denies any fever or chills. TSH is markedly elevated at 204. He also has a chronic history of alcohol abuse and drinks about 5 beers daily. His last drink was the day before admission. Am concerned the patient may have Wernicke's encephalopathy in his hypothyroidism may also be contributing. Is not clear if he has been compliant with his medications. Hold oral Synthroid and started on IV Synthroid 100 mcg daily. Also started on IV thiamine 200 mg Q8 Hydrate gently with IV fluids. CT of the brain showed no acute intracranial pathology and showed small vessel ischemia Check vitamin B12 and folate levels as well as rapid plasma reagin test Get MRI of the brain and consult neurology if encephalopathy persists. #IFEANYI: Creatinine is 5.75. Baseline creatinine from March 2024 was 1.13. From May creatinine has gradually gone up from 0.85 and was 4.23 on 06/26/2024. It is now 5.75. Insert Barrientos catheter and get CT of the abdomen and pelvis without contrast to rule out an obstructive uropathy. Check Edita and consult nephrology #Chronic alcohol abuse with concern for withdrawal Drinks at least 5 beers daily with last drink being a day before admission. Started on alcohol withdrawal protocol with phenobarbital. Check serum alcohol level and do urine tox Monitor CIWA score. On thiamine, folic acid and Multi-Violet #Severe hypothyroidism: TSH is 208. He is on Synthroid but it is unclear if he has been compliant with his Synthroid. Started on IV Synthroid 100 mcg daily. Hold p.o. Synthroid for now. T4 is low at 0.7 and free T3 is also low at 0.7. #History of psoriasis: On ustekinumab DVT prophylaxis: Lovenox CODE STATUS: Full code Patient and son counseled extensively about different types of CODE STATUS including full code, DNR CCA and DNR CCA. Patient elects to be full code. Total [id number] time 17 minutes. Charges/Coding Visit Charges Inpatient E&M: 30261 Init Hosp L3 Procedures Hospitalists Procedures: 64962 Advncd Care Plan 30 Min
[2024-08-20 10:58] VITALS: BP 165/98; PULSE 74; PULSE 77; RESP 18; RESP 19; TEMP 36.8; O2SAT 97
--- NOTE | 2024-08-20 12:11 | CASEMGMT ---
Care Management Face to Face with patient for initial transition planning/care coordination assessment in the ED. This appeals writer introduced self and role at [facility]. Patient alert, but confused with some details. Patient's son, Esa, bedside. Patient willing to participate in assessment and is able to answer all questions appropriately. Admitting Diagnosis: IFEANYI on CKD, acute encephalopathy Other diagnosis history: ETOH use, vertigo, GERD, hypothyroidism PCP: Dr. Parham Specialists: [facility] (doctors unknown) Preferred Pharmacy: [facility] Insurance: Medicare A B (primary). [facility] [place] (secondary). Prescription Benefit: yes Living Will/HPOA: yes, patient's son Esa. Esa agreed to bring in documents during admission. LNOK: son, Esa and daughter, Kellie. Patient has two remaining sisters living, Kera and Monalisa. Living Arrangements: lives alone in a 2 story apartment with 7 steps to enter. Patient reports being independent with all ADLs, but has concerns with falling at home and on the slanted drive; patient has bruises all over arms. Transportation: patient reports driving self, though patient reports having concerns with driving at night due to not being able to see. Patient's son reports patient has not driven anywhere since when patient reportedly drove to [place] to see family. DME: cane and rollater, but patient reports not using. HHC: denies SNF/Rehab: denies Community Resources: denies Patient goals: Patient wishes to discharge home with HHC and patient is open to SNF if needed. Patient states wanting to go live with patient's son, though patient's son just shrugged and stared ahead. Patient reports current health struggles are all stress related. Disposition Plan: admission to acute; RN CM/SW to follow for discharge planning needs that may arise. Yolette Schmidt, PHOTO TECH, GROUP TESTER
[2024-08-20 12:21] VITALS: BMI 21.0
[2024-08-20 13:01] LABS: Free T3 0.7 pg/mL (2.18-3.98)
[2024-08-20] MEDS: Phenobarbital 32.4 MG Tablet PO ×3 (13:04→22:03)
[2024-08-20] MEDS: 0.9% Normal Saline (1000mL) 1,000 ML 125 ML IV ×2 (13:04→22:05)
[2024-08-20 13:10] VITALS: BP 150/100; PULSE 72; RESP 16; TEMP 36.4; O2SAT 96
[2024-08-20] MEDS: Thiamine Hydrochloride 200 MG in 0.9% Normal Saline (50mL Bag) 50 ML IV ×2 (14:31→22:05)
[2024-08-20] MEDS: Albuterol 2.5 MG/3 ML VIAL.NEB. INHALATION ×2 (15:34→19:30)
[2024-08-20 15:35] VITALS: PULSE 66; RESP 18; O2SAT 93
[2024-08-20] MEDS: LEVOTHYROXINE SODIUM 100 MCG VIAL IV (15:49)
[2024-08-20 17:26] LABS: Amphetamine Urine NEGATIVE (<1000 ng/mL); Barbiturate Urine VISTA NEGATIVE (< 200 ng/mL); Benzodiazepine Urine VISTA NEGATIVE (< 200 ng/mL); Cocaine Urine VISTA NEGATIVE (< 300 ng/mL); Ecstacy Urine VISTA NEGATIVE (< 500 ng/mL); Methadone Urine VISTA NEGATIVE (< 300 ng/mL); Opiates Urine NEGATIVE (< 300 ng/mL); PCP Urine NEGATIVE (< 25 ng/mL); THC Urine VISTA NEGATIVE (< 50 ng/mL); Vista UDS pH Range 5
--- NOTE | 2024-08-20 18:18 | CT_ITS ---
PROCEDURE: ABDOMEN/PELVIS WITHOUT CONT REASON FOR EXAM: IFEANYI; ruled out obstructive uropathy. TECHNIQUE: Abdomen and pelvis CT with intravenous contrast. COMPARISON: 02/12/2023 CT. FINDINGS: Lung bases: Clear Liver: Unremarkable. Gallbladder: Surgically absent gallbladder. Spleen: Unremarkable. Pancreas: Unremarkable. Adrenals: Unremarkable. Kidneys: Left kidney cyst measures 54 mm, previously 33 mm. Severe right and zthoqmus-pn-qfqxup left hydroureteronephrosis without visualized obstructing calculi. Bladder: Collapsed around a Barrientos catheter. Reproductive Organs: Unremarkable. Bowel: Diverticulosis without surrounding inflammatory changes. Appendix: Normal. Lymph nodes: No suspicious lymph node enlargement. Vasculature: Moderate atherosclerosis. Peritoneum / Retroperitoneum: No ascites. No free air. Bones: Degenerative changes spine. Grade 1 anterolisthesis of L3 on L4. Stable chronic T12 superior endplate compression deformity. CT/Abdomen/Pelvis without Cont IMPRESSION: Severe right hmfbfwck-qf-bnylvw left hydroureteronephrosis without visualized o bstructing calculi. Increased size of left kidney cyst. Further characterization with nonemergent ultrasound is recommended. One or more dose reduction techniques were used (e.g., Automated exposure contr ol, adjustment of the mA and/or kV according to patient size, use of iterative reconstruction technique). Reading Location: [id number]
[2024-08-20 19:30] VITALS: PULSE 83; RESP 20; O2SAT 93
[2024-08-20 19:59] VITALS: BP 160/98; PULSE 64; RESP 18; TEMP 36.4; O2SAT 100
--- NOTE | 2024-08-20 20:12 | PCM.HOSP.N ---
Hospitalist Note Patient with hawthorne placed, initially appropriate looking urine, notable initial output but following CT scan when he returned he had noted mild red tinged urine and then bright red. Will hold lovenox until reassessment in AM. Will continue to monitor and if remains BR then will repeat Hgb and may need irrigation.
[2024-08-21] VITALS (10 sets, daily range): BP systolic 113–146; BP diastolic 65–84; PULSE 62–99; RESP 16–18; TEMP 36.6–36.9; O2SAT 96–100
[2024-08-21] MEDS: Phenobarbital 32.4 MG Tablet PO ×5 (01:58→20:51)
[2024-08-21] MEDS: Levothyroxine 150 MCG Tablet PO (05:02)
[2024-08-21] MEDS: Thiamine Hydrochloride 200 MG in 0.9% Normal Saline (50mL Bag) 50 ML IV (05:02)
[2024-08-21 06:49] LABS: Absolute Lymphocyte Count 0.93 X10^3/uL (0.83-4.51); Absolute Neutrophil Count 6.5 X10^3/uL (2.0-7.7); Basophil# 0.07 X10^3/uL; Basophil% 0.8 % (0-1); Eosinophils% 9.7 % (0-5); Hematocrit 26.9 % (40-54); Hemoglobin 8.6 g/dL (13.0-16.5); Lymphocyte # 0.93 X10^3/ul (0.83-4.51); Mean Corpuscular Hgb 31.3 pg (27.0-32.0); Mean Corpuscular Volume 97.8 fL (80-94); Mean Platelet Vol. 9.3 fl (6.2-12.0); Monocyte# 0.82 X10^3/uL; Monocyte% 8.8 % (0-10); NRBC Flagged by Analyzer 0 % (0-5); Neutrophil # 6.53 X10^3/uL (2.7-7.7); Neutrophil % 70.2 % (47-70); Platelet Count 319 K/mm3 (150-450); RBC Distribution Width CV 14.5 % (11.6-14.6); RBC Distribution Width SD 51.6 fl (35.1-43.9); Red Blood Count 2.75 M/mm3 (4.6-6.2); White Blood Count 9.3 K/mm3 (4.4-11.0)
[2024-08-21] MEDS: Albuterol 2.5 MG/3 ML VIAL.NEB. INHALATION ×4 (07:30→20:10)
[2024-08-21 07:40] LABS: AST(SGOT) 23 U/L (15-37); Alanine Aminotransfer ALT/SGPT 11 U/L (16-61); Albumin, Serum 2.5 g/dL (3.2-5.0); Alkaline Phosphatase 38 U/L (45-117); Anion Gap 5 (5-15); BUN 40 mg/dL (7-18); BUN/Creat Ratio 7.3 RATIO (10-20); Bilirubin, Direct 0.17 mg/dL (0.00-0.30); Calcium,Total 8.3 mg/dL (8.5-10.1); Chloride 108 mmol/L (98-107); Creatinine, Serum 5.47 mg/dL (0.70-1.30); EST Glomerular Filtration Rate 11 mL/min (>60); Est Glom Filt Rate - Afr Amer 13 mL/min (>60); Globulin 3.3 g/dL (2.2-4.2); Glucose 76 mg/dL (74-106); Potassium 5.2 mmol/L (3.5-5.1); Protein, Total 5.8 g/dL (6.4-8.2); Sodium Level 135 mmol/L (136-145)
--- NOTE | 2024-08-21 07:53 | PCM.CONS.U ---
HPI Consult Data Date of Consult: 08/21/24 HPI Narrative Reason for Consultation: Retention of urine and gross hematuria HPI Narrative: ABBASI BREECE, is a 68 M who presents To the hospital with confusion altered mental status was fun have a elevated creatinine of 5.75. I spoke to the nurses about his care this morning he had a Barrientos catheter placed had a large residual and then he had a CAT scan done CAT scan does demonstrate bilateral hydronephrosis consistent with obstruction for retention of urine and he had been decompression of the bladder and some bleeding a Barrientos catheter. This is common after Barrientos catheter is been placed with the patient is a distended urinary system I expect the bleeding in the blood in the urine to improve on its own the nurses can flush it PRN and then he'll have to go home with a catheter a follow-up as an outpatient my office for further evaluation and a cystoscopy and diagnostic workup. Call with questions. [facility] Medical History Vertigo GERD (gastroesophageal reflux disease) Hypothyroidism Home Medications ?Medication ?Instructions ?Recorded ?Last Taken ?Type multivitamin (Multiple Vitamins 1 ea PO DAILY SUPPLEMENT 08/21/18 Unknown History tablet) albuterol sulfate 90 mcg/actuation 1 - 2 puff inhalation Q4H PRN PRN 12/11/19 Unknown Rx aerosol inhaler Wheezing ##1 aspirin 81 mg chewable tablet 81 mg PO DAILY heart health 12/11/19 08/20/24 History ustekinumab 90 mg/mL subcutaneous 90 mg subcut UD PSORIASIS 12/11/19 11/27/19 History syringe levothyroxine 150 mcg tablet 150 mcg PO DAILY HYPOTHYROIDISM 03/01/24 08/20/24 History magnesium oxide 400 mg (241.3 mg 400 mg PO DAILY #30 tabs 03/03/24 Unknown Rx magnesium) tablet betamethasone, augmented 0.05 % 1 applic topical BID PRN itch 08/20/24 08/20/24 History topical cream meclizine 25 mg chewable tablet 25 mg PO TID PRN dizziness 08/20/24 Unknown History Allergy/AdvReac Type Severity Reaction Status Date / Time codeine AdvReac Intermediate Upset Verified 03/01/24 11:06 Stomach Family History Father CAD (coronary artery disease) Social History (Updated 08/20/24 @ 09:[address] Be Singh MD) household members: none Smoking Status: Light Smoker (<10/day) alcohol intake: former substance use type: does not use Lab / Micro Data 08/21/24 06:19 08/21/24 06:19 Labs: Laboratory Results - last 24 hr 08/20/24 09:09: POC Glucose 74 08/20/24 09:14: WBC 8.3, RBC 3.41 L, Hgb 11.2 L, Hct 32.8 L, MCV 96.2 H, MCH 32.8 H, MCHC 34.1, RDW Std Deviation 50.4 H, RDW Coeff of Keysha 14.3, Plt Count 375, MPV 9.2, Immature Gran % (Auto) 0.200, Neut % (Auto) 66.3, Lymph % (Auto) 12.7 L, [place] % (Auto) 7.5, Eos % (Auto) 12.2 H, Baso % (Auto) 1.1 H, Absolute Neuts (auto) 5.5, Absolute Lymphs (auto) 1.05, Nucleated RBC % 0, ESR 18, Sodium 131 L, Potassium 5.1, Chloride 102, Carbon Dioxide 23.0, Anion Gap 6, BUN 44 H, Creatinine 5.75 H, Estim Creat Clear Calc 13.98, Est GFR (MDRD) Af Amer 13 L, Est GFR (MDRD) Non-Af 10 L, BUN/Creatinine Ratio 7.7 L, Glucose 90, Calcium 9.0, Total Bilirubin 0.50, AST 36, ALT 16, Alkaline Phosphatase 54, Total Protein 7.6, Albumin 3.4, Globulin 4.2, Albumin/Globulin Ratio 0.8 L, TSH 208.000 H, Free T4 0.70 L, Free T3 pg/dL 0.7 L 08/20/24 09:57: Urine Color Yellow, Urine Clarity Clear, Urine pH 5.0, Ur Specific [place] 1.010, Urine Protein Negative, Urine Glucose (UA) Normal, Urine Ketones Negative, Urine Occult Blood Negative, Urine Nitrite Negative, Urine Bilirubin Negative, Urine Urobilinogen Normal, Ur Leukocyte Esterase 25 H, Urine RBC 0 SEEN, Urine WBC 0-5 SEEN, Ur Squamous Epith Cells 0 SEEN, Urine Bacteria 0 SEEN, Urine Mucus 0 SEEN, Urine Opiates Screen NEGATIVE, Urine Methadone Screen NEGATIVE, Ur Barbiturates Screen NEGATIVE, Ur Phencyclidine Scrn NEGATIVE, Ur Amphetamines Screen NEGATIVE, MDMA (Ecstasy) Screen NEGATIVE, U Benzodiazepines Scrn NEGATIVE, Urine Cocaine Screen NEGATIVE, U Cannabinoids Screen NEGATIVE, Ur Drug Screen Comment 08/21/24 06:19: WBC 9.3, RBC 2.75 L, Hgb 8.6 L, Hct 26.9 L, MCV 97.8 H, MCH 31.3, MCHC 32.0 D, RDW Std Deviation 51.6 H, RDW Coeff of Keysha 14.5, Plt Count 319, MPV 9.3, Immature Gran % (Auto) 0.500, Neut % (Auto) 70.2 H, Lymph % (Auto) 10.0 L, [place] % (Auto) 8.8, Eos % (Auto) 9.7 H, Baso % (Auto) 0.8, Absolute Neuts (auto) 6.5, Absolute Lymphs (auto) 0.93, Nucleated RBC % 0, Sodium 135 L, Potassium 5.2 H, Chloride 108 H, Carbon Dioxide 22.0, Anion Gap 5, BUN 40 H, Creatinine 5.47 H, Estim Creat Clear Calc 14.70, Est GFR (MDRD) Af Amer 13 L, Est GFR (MDRD) Non-Af 11 L, BUN/Creatinine Ratio 7.3 L, Glucose 76, Calcium 8.3 L, Total Bilirubin 0.30, Direct Bilirubin 0.17, AST 23, ALT 11 L, Alkaline Phosphatase 38 L, Total Protein 5.8 L, Albumin 2.5 L, Globulin 3.3 Imaging Radiology Impression Brain CT 08/20/24 09:11 IMPRESSION: 1. Small vessel ischemic/degenerative changes. 2. No acute intracranial hemorrhage, midline shift or mass effect. If symptoms persist, further evaluation with MRI is recommended. Reading Location: [facility] Chest X-Ray 08/20/24 09:35 IMPRESSION: No acute cardiopulmonary process. Reading Location: [facility] Abdomen/Pelvis CT 08/20/24 18:18 IMPRESSION: Severe right embynanm-uh-cjguvb left hydroureteronephrosis without visualized obstructing calculi. Increased size of left kidney cyst. Further characterization with nonemergent ultrasound is recommended. One or more dose reduction techniques were used (e.g., Automated exposure control, adjustment of the mA and/or kV according to patient size, use of iterative reconstruction technique). Reading Location: [id number]
--- NOTE | 2024-08-21 07:58 | DCINST_ITS ---
Discharge Instructions DC O2, CPAP, BIPAP needs Home O2 Discharge instructions: No Dressing / Incision Call your doctor if you observe: Fever of 101 or Higher Catheter: Barrientos to leg bag and Barrientos to large bag Drain: [place] Follow Up Care Please Follow Up With: Ken Torres MD When: Call [phone] for an appointment Test Results: Test results from this visit will be discussed in further detail at your follow- up appointment, if applicable. Discharge Plan Admission Admit Date/Time: 08/20/24 10:52 Attending Provider: Annelise Ramirez Primary Care Provider: Hebert Whaley Consulting Providers: Ken Torres Discharge Orders/Prescriptions Prescriptions: No Action multivitamin [Multiple Vitamins] 1 EACH tablet 1 ea PO DAILY ustekinumab 90 MG/ML syringe 90 mg subcut UD Rx Instructions: every 3 months albuterol sulfate 1 INHALER inhaler 1 - 2 puff inhalation Q4H PRN PRN (Reason: Wheezing) Qty: 1 0RF aspirin 81 MG tablet,chewable 81 mg PO DAILY levothyroxine 150 mcg tablet 150 mcg PO DAILY magnesium oxide 400 mg (241.3 mg magnesium) tablet 400 mg PO DAILY Qty: 30 0RF betamethasone, augmented 0.05 % cream 1 applic topical BID PRN meclizine 25 mg tablet,chewable 25 mg PO TID PRN Referrals / Follow Up: Hebert Whaley MD [Primary Care Provider] -
[2024-08-21] MEDS: Pantoprazole Sodium 40 MG in 0.9% Normal Saline (100mL MB+) 100 ML 330 MG IV ×2 (09:09→20:52)
[2024-08-21 09:30] LABS: Ferritin 170 ng/mL (26-388); Iron 41 ug/dL (65-175); Iron Binding Capacity,Total 151 ug/dL (250-450); PERCENT IRON SATURATION 27.2 % (15.0-55.0); PSA,Total- Diagnostic 1.68 ng/mL (0.0-4.0)
[2024-08-21] MEDS: Folic Acid 1 MG Tablet PO (09:51)
[2024-08-21] MEDS: Magnesium Chloride 64 MG Delay Rel.Tablet 128 MG PO (09:52)
[2024-08-21 09:59] LABS: Vitamin B12 249 pg/mL (211-911)
[2024-08-21] MEDS: LEVOTHYROXINE SODIUM 100 MCG VIAL IV (11:40)
[2024-08-21] MEDS: Multivitamins,Therapeutic Tablet 1 TABLET PO (11:41)
--- NOTE | 2024-08-21 11:45 | PN_ITS ---
Subjective Subjective Patient seen and examined. He says he feels much better today. He was eating breakfast at time of review. He denies any fever, chills, chest pain, palpitations, dizziness, nausea, vomiting or any other symptoms. Review of systems is otherwise negative. He has remained hemodynamically stable. Objective Data Objective Data Vital Signs: Vital Signs Temp Pulse Resp BP Pulse Ox O2 Del Method 98.5 F 70 16 130/76 H 96 Room Air 08/21/24 08:06 08/21/24 11:25 08/21/24 11:25 08/21/24 08:06 08/21/24 11:08/21/24 11:25 Oxygen Delivery Method Room Air Weight: 182 lb 5.156 oz Body Mass Index (BMI) 21.0 Intake & Output: Intake and Output for Last 24 Hours 08/19/24 08/20/24 08/21/24 23:59 23:59 23:59 Intake Total 2164.00 / 2164.00 1282 / 1282 Output Total 3100 / 3100 1925 / 1925 Balance -936.00 / -936.00 -643 / -643 Lab / Micro Data 08/21/24 06:19 08/21/24 06:19 Labs: Laboratory Results - last 24 hr 08/20/24 09:14: TSH 208.000 H, Free T4 0.70 L, Free T3 pg/dL 0.7 L 08/20/24 09:57: Urine Opiates Screen NEGATIVE, Urine Methadone Screen NEGATIVE, Ur Barbiturates Screen NEGATIVE, Ur Phencyclidine Scrn NEGATIVE, Ur Amphetamines Screen NEGATIVE, MDMA (Ecstasy) Screen NEGATIVE, U Benzodiazepines Scrn NEGATIVE, Urine Cocaine Screen NEGATIVE, U Cannabinoids Screen NEGATIVE, Ur Drug Screen Comment 08/20/24 20:06: Vitamin B12 249 08/21/24 06:19: WBC 9.3, RBC 2.75 L, Hgb 8.6 L, Hct 26.9 L, MCV 97.8 H, MCH 31.3, MCHC 32.0 D, RDW Std Deviation 51.6 H, RDW Coeff of Keysha 14.5, Plt Count 319, MPV 9.3, Immature Gran % (Auto) 0.500, Neut % (Auto) 70.2 H, Lymph % (Auto) 10.0 L, [place] % (Auto) 8.8, Eos % (Auto) 9.7 H, Baso % (Auto) 0.8, Absolute Neuts (auto) 6.5, Absolute Lymphs (auto) 0.93, Nucleated RBC % 0, Sodium 135 L, P otassium 5.2 H, Chloride 108 H, Carbon Dioxide 22.0, Anion Gap 5, BUN 40 H, C reatinine 5.47 H, Estim Creat Clear Calc 14.70, Est GFR (MDRD) Af Amer 13 L, Est GFR (MDRD) Non-Af 11 L, BUN/Creatinine Ratio 7.3 L, Glucose 76, Calcium 8.3 L, I iraida 41 L, TIBC 151 L, Iron Saturation 27.2, Ferritin 170, Total Bilirubin 0.30, Direct Bilirubin 0.17, AST 23, ALT 11 L, Alkaline Phosphatase 38 L, Total Protein 5.8 L, Albumin 2.5 L, Globulin 3.3, Total PSA 1.68 Radiography Diagnostic Testing: Radiology Impression Chest X-Ray 08/20/24 09:35 IMPRESSION: No acute cardiopulmonary process. Reading Location[facility] Abdomen/Pelvis CT 08/20/24 18:18 IMPRESSION: Severe right gefumyxd-dc-laiqky left hydroureteronephrosis without visualized obstructing calculi. Increased size of left kidney cyst. Further characterization with nonemergent ultrasound is recommended. One or more dose reduction techniques were used (e.g., Automated exposure control, adjustment of the mA and/or kV according to patient size, use of iterative reconstruction technique). Reading Location: [facility] Physical Exam Const alert, oriented x3 and no apparent distress Constitutional Narrative: less confused today. General Appearance: cooperative HEENT normocephalic and head/scalp atraumatic Eyes PERRL, EOMs intact bilaterally and conjunctivae normal Neck no lymphadenopathy and supple Resp normal respiratory effort, normal air movement, no retractions, no use of accessory muscles and clear to auscultation bilaterally Cardio regular rate, regular rhythm, S1 normal heart sound, S2 normal heart sound and no murmurs GI normal to inspection, nondistended, normoactive bowel sounds, soft to palpation, non-tender and non-distended Extremity normal to inspection and full ROM Extremity Narrative: minimal 1+ edema of lower extremities bilaterally. General Extremity: no tenderness to palpation of joints or extremities Neuro oriented x3, CN's II-XII intact bilaterally, moves all extremities and no focal motor deficits Sensorium / Orientation: awake and alert Motor Exam: strength 5/5 throughout and general weakness Psych thought process normal, cooperative and affect normal Appearance: appropriate Assessment & Plan Assessment/Plan (1) Acute alteration in mental status: (2) History of hypothyroidism: PLAN: Plan #Acute encephalopathy * Concern for Wernicke's encephalopathy in light of chronic alcohol abuse as well as severe hypothyroidism in light of markedly elevated TSH * has improved significantly. * on iV synthroid. Due to chronic alcohol abuse, he is on IV thiamine. Will switch to PO thiamine. * rbc folate pending. Vitamin B12 within normal limit. * Put back on PO synthroid and put on 200mcg daily of synthroid. * CT of the brain showed small vessel ischemia. * will continue to monitor. * * #IFEANYI likely obstructive * Creatinine is 5.47. Potassium today is 5.2. Will give kayexalate. * CT abdomen and pelvis showed severe right moderate to severe left hydroureteronephrosis without visualised obstructing calculi. * Baseline creatinine from March 2024 was 1.13. * From May creatinine has gradually gone up from 0.85 and was 4.23 on 06/26/2024. It is now 5.75. * Insert Hawthorne catheter and get CT of the abdomen and pelvis without contrast to rule out an obstructive uropathy. * urology consulted o/.a of hydronephrosis- per urology, to go with hawthorne catheter in situ. * patient also having hematuria now. Per urology, the hematuria will likely clear and to continue monitoring. * hawthorne catheter in situ * #Chronic alcohol abuse with concern for withdrawal * Drinks at least 5 beers daily with last drink being a day before admission. * Started on alcohol withdrawal protocol with phenobarbital. Check serum alcohol level and do urine tox * Monitor CIWA score. On thiamine, folic acid and Multi-Violet * #Severe hypothyroidism: * TSH is 208. He is on Synthroid but it is unclear if he has been compliant with his Synthroid. * Started on IV Synthroid 100 mcg daily. * encephalopathy is improving so will place on P * #Acute anemia * Hemoglobin was 11.2 on admission, down to 8.6. This likely due to hematuria. * Hold heparin and transfuse if Hb is less than 7. Urology aware of hematuria. * #History of psoriasis: On ustekinumab DVT prophylaxis: SCDs; no anticoagulation due to hematuria CODE STATUS: Full code * Charges/Coding Visit Charges Inpatient E&M: 80350 Subs Hosp L3
[2024-08-21] MEDS: Sodium Polystyrene Sulfonate 15 GM/60 ML UDC 30 GM PO (14:41)
[2024-08-21] MEDS: Triamcinolone 0.5% Cream 1 APPLIC TOPICAL (20:51)
[2024-08-22] VITALS (10 sets, daily range): BP systolic 114–144; BP diastolic 61–93; PULSE 71–91; RESP 15–21; TEMP 36.8–37.7; O2SAT 97–99
[2024-08-22] MEDS: Phenobarbital 32.4 MG Tablet PO ×6 (01:34→21:43)
[2024-08-22 05:37] LABS: Absolute Lymphocyte Count 0.88 X10^3/uL (0.83-4.51); Absolute Neutrophil Count 5.9 X10^3/uL (2.0-7.7); Basophil# 0.05 X10^3/uL; Basophil% 0.6 % (0-1); Eosinophil# 0.79 X10^3/uL; Eosinophils% 9.2 % (0-5); Hematocrit 25.5 % (40-54); Hemoglobin 8.2 g/dL (13.0-16.5); Lymphocyte # 0.88 X10^3/ul (0.83-4.51); Lymphocyte % 10.3 % (19-41); Mean Corp Hgb Conc 32.2 g/dL (32-36); Mean Corpuscular Hgb 31.7 pg (27.0-32.0); Mean Corpuscular Volume 98.5 fL (80-94); Mean Platelet Vol. 9.7 fl (6.2-12.0); Monocyte# 0.93 X10^3/uL; Monocyte% 10.8 % (0-10); NRBC Flagged by Analyzer 0 % (0-5); Neutrophil # 5.89 X10^3/uL (2.7-7.7); Neutrophil % 68.6 % (47-70); Platelet Count 293 K/mm3 (150-450); RBC Distribution Width CV 14.3 % (11.6-14.6); RBC Distribution Width SD 51.5 fl (35.1-43.9); Red Blood Count 2.59 M/mm3 (4.6-6.2); White Blood Count 8.6 K/mm3 (4.4-11.0)
[2024-08-22 05:55] LABS: Anion Gap 6 (5-15); BUN 37 mg/dL (7-18); BUN/Creat Ratio 7.4 RATIO (10-20); Chloride 107 mmol/L (98-107); Creatinine, Serum 4.97 mg/dL (0.70-1.30); EST Glomerular Filtration Rate 12 mL/min (>60); Est Glom Filt Rate - Afr Amer 15 mL/min (>60); Estimated Creatinine Clearance 16.18 ml/min; Glucose 85 mg/dL (74-106); Potassium 4.5 mmol/L (3.5-5.1); Sodium Level 136 mmol/L (136-145)
[2024-08-22] MEDS: Albuterol 2.5 MG/3 ML VIAL.NEB. INHALATION (07:16)
[2024-08-22] MEDS: Pantoprazole Sodium 40 MG in 0.9% Normal Saline (100mL MB+) 100 ML 330 MG IV ×2 (09:50→22:04)
[2024-08-22] MEDS: Magnesium Chloride 64 MG Delay Rel.Tablet 128 MG PO (10:21)
[2024-08-22] MEDS: Folic Acid 1 MG Tablet PO (10:21)
[2024-08-22] MEDS: Thiamine Hydrochloride 100 MG Tablet PO (10:21)
--- NOTE | 2024-08-22 11:33 | CASEMGMT ---
Discharge Planning A list of SNF providers including quality and resource use data and consistent with the patient's preferred geographic region, medical needs, and insurance network was created in [facility].? This list was provided to the SW. Janett Ivey Discharge Planning Asst.
[2024-08-22] MEDS: Multivitamins,Therapeutic Tablet 1 TABLET PO (11:48)
--- NOTE | 2024-08-22 12:54 | CASEMGMT ---
Addendum entered by Chiquita Keene 08/22/24 15:12: Social Work- SW copied HCPOA paperwork and placed in chart. EDILMA Elias Original Note: Social Work- SW met with pt to discuss discharge planning. Pt reports that he lives home alone and needs some assistance. 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 Pt enjoys tinkering and riding his bike. Pt reports that he has 3 kids and grandkids that he would like to get healthy for. Pt reports that he has friends and does not feel isolated, but does feel alone at times. Pt reports that he drank and partied hard for 30 years. Pt reports that he knows he need to be a good boy when he returns home. Pt reports that he does not eat much at home and would be open to meals on wheels. Pt is insistent that he wants to return home and does not feel he needs placement. [employer] came to see pt. SW will continue to follow. SW met with pt dtr to discuss discharge plans. Pt dtr feels that pt is not safe to return home. SW provided information on SNF criteria and process. SW discussed pt finances; pt dtr has an appointment to meet with pt staff attorney to decipher financial status of pt. SW provided resources for [facility], [facility], and medical alert. SW provided resources for [facility], as well as assisted living and SNF providers including quality and resource use data and consistent with the patient?s preferred geographic region, medical needs, and insurance network were provided from the [facility] Guide. SW provided information on addiction services. Pt dtr and son will talk with pt this evening regarding SNF and follow up with SW. Pt dtr prefers SNF at discharge, but would be interested in HHC if pt refuses SNF. SW remains available to follow. EDILMA Elias
--- NOTE | 2024-08-22 13:07 | CON.PCM.RE_ITS ---
Assessment & Plan Assessment/Plan (1) Acute kidney injury superimposed on stage 4 chronic kidney disease: PLAN: His baseline creatinine was close to 1 as of March 2024. In May he had a creatinine of 4-5 range. I am not sure if he had any interventions done. This time he came with a creatinine more than 5. CT abdomen with bilateral hydronephrosis. Hawthorne catheter inserted, creatinine is trending down. Likely IFEANYI is obstructive. He could not give me much history otherwise. For now we will monitor creatinine with a Hawthorne indwelling. HPI Consult Data Date of Consult: 08/22/24 HPI Narrative Reason for Consultation: ifeanyi HPI Narrative: ABBASI BREECE, is a 68 M who presents To the hospital with altered mental status. Nephrology on consultation in view of acute renal failure. Poor historian, most of the history is from the charts. He says primary care physician is Dr. Whaley. He was found to have a creatinine of more than [address] abdomen showed bilateral hydronephrosis with a distended bladder. Hawthorne catheter was placed with immediate result of large amounts of urine. Baseline creatinine in March was close to 1. In May I see a creatinine of 5. I am not sure if the value was followed up or evaluated in someway. He does not seem to know much about that. Creatinine is better today. No other complaints. Denies taking any eiwz-ypk-nnufypn medications [facility] Medical History Vertigo GERD (gastroesophageal reflux disease) Hypothyroidism Home Medications ?Medication ?Instructions ?Recorded ?Last Taken ?Type multivitamin (Multiple Vitamins 1 ea PO DAILY SUPPLEME NT 08/21/18 Unknown History tablet) albuterol sulfate 90 mcg/actuation 1 - 2 puff inhalati on Q4H PRN PRN 12/11/19 Unknown Rx aerosol inhaler Wheezing ##1 aspirin 81 mg chewable tablet 81 mg PO DAILY heart hea lth 12/11/19 08/20/24 History ustekinumab 90 mg/mL subcutaneous 90 mg subcut UD PSOR IASIS 12/11/19 11/27/19 History syringe levothyroxine 150 mcg tablet 150 mcg PO DAILY HYPOTHYR OIDISM 03/01/24 08/20/24 History magnesium oxide 400 mg (241.3 mg 400 mg PO DAILY #30 t abs 03/03/24 Unknown Rx magnesium) tablet betamethasone, augmented 0.05 % 1 applic topical BID P RN itch 08/20/24 08/20/24 History topical cream meclizine 25 mg chewable tablet 25 mg PO TID PRN dizzi ness 08/20/24 Unknown History Allergy/AdvReac Type Severity Reaction Status Date / Time codeine AdvReac Intermediate Upset Verified 03/01/24 11:06 Stomach Family History Father CAD (coronary artery disease) Social History (Updated 08/20/24 @ 09:[address] Be Singh MD) household members: none Smoking Status: Light Smoker (<10/day) alcohol intake: former substance use type: does not use ROS ROS Narrative Negative except above Physical Exam Narrative no obvious distress no pallor no icterus no JVD s1s2 no murmurs lungs clear abdomen soft no organomegaly no edema no cyanosis hawthorne + Lab / Micro Data 08/22/24 04:35 08/22/24 04:35 Labs: Laboratory Results - last 24 hr 08/22/24 04:35: WBC 8.6, RBC 2.59 L, Hgb 8.2 L, Hct 25.5 L, MCV 98.5 H, MCH 31.7, MCHC 32.2, RDW Std Deviation 51.5 H, RDW Coeff of Keysha 14.3, Plt Count 293, MPV 9.7, Immature Gran % (Auto) 0.500, Neut % (Auto) 68.6, Lymph % (Auto) 10.3 L , [place] % (Auto) 10.8 H, Eos % (Auto) 9.2 H, Baso % (Auto) 0.6, Absolute Neuts (auto) 5.9, Absolute Lymphs (auto) 0.88, Nucleated RBC % 0, Sodium 136, Potassium 4.5, Chloride 107, Carbon Dioxide 23.0, Anion Gap 6, BUN 37 H, C reatinine 4.97 H, Estim Creat Clear Calc 16.18, Est GFR (MDRD) Af Amer 15 L, Est GFR (MDRD) Non-Af 12 L, BUN/Creatinine Ratio 7.4 L, Glucose 85, Calcium 8.0 L Micro: Microbiology 08/21/24 18:35 Stool Stool Occult Blood (DEQUAN) - Final
--- NOTE | 2024-08-22 16:15 | NURSING ---
All documentation by student driving instructor Vonda Alexis reviewed by biology instructor Ranjana SOUZA, RN.
--- NOTE | 2024-08-22 17:14 | PN_ITS ---
Subjective Subjective Patient seen and examined. He said he felt well today. He was actually hoping to go home. He had an uneventful night and review systems otherwise negative. He has remained hemodynamically stable. His hemoglobin has come down to 8.2 from 8.6 yesterday. He still having hematuria. Objective Data Objective Data Vital Signs: Vital Signs Temp Pulse Resp BP Pulse Ox O2 Del Method 98.6 F 71 16 116/61 98 Room Air 08/22/24 14:52 08/22/24 14:52 08/22/24 14:52 08/22/24 14:52 08/22/24 14:52 08/22/24 14:52 Oxygen Delivery Method Room Air Weight: 182 lb 5.156 oz Body Mass Index (BMI) 21.0 Intake & Output: Intake and Output for Last 24 Hours 08/20/24 08/21/24 08/22/24 23:59 23:59 23:59 Intake Total 2164.00 / 2164.00 1392 / 1392 230 / 230 Output Total 3100 / 3100 3275 / 3275 1750 / 1750 Balance -936.00 / -936.00 -1883 / -1883 -1520 / -1520 Lab / Micro Data 08/22/24 04:35 08/22/24 04:35 Labs: Laboratory Results - last 24 hr 08/22/24 04:35: WBC 8.6, RBC 2.59 L, Hgb 8.2 L, Hct 25.5 L, MCV 98.5 H, MCH 31.7, MCHC 32.2, RDW Std Deviation 51.5 H, RDW Coeff of Keysha 14.3, Plt Count 293, MPV 9.7, Immature Gran % (Auto) 0.500, Neut % (Auto) 68.6, Lymph % (Auto) 10.3 L , [place] % (Auto) 10.8 H, Eos % (Auto) 9.2 H, Baso % (Auto) 0.6, Absolute Neuts (auto) 5.9, Absolute Lymphs (auto) 0.88, Nucleated RBC % 0, Sodium 136, Potassium 4.5, Chloride 107, Carbon Dioxide 23.0, Anion Gap 6, BUN 37 H, C reatinine 4.97 H, Estim Creat Clear Calc 16.18, Est GFR (MDRD) Af Amer 15 L, Est GFR (MDRD) Non-Af 12 L, BUN/Creatinine Ratio 7.4 L, Glucose 85, Calcium 8.0 L Micro: Microbiology 08/21/24 18:35 Stool Stool Occult Blood (DEQUAN) - Final Physical Exam Const alert, oriented x3 and no apparent distress General Appearance: cooperative Orientation / Consciousness: confused HEENT normocephalic and head/scalp atraumatic Eyes PERRL, EOMs intact bilaterally and conjunctivae normal Neck no lymphadenopathy and supple Resp normal respiratory effort, normal air movement, no retractions, no use of accessory muscles and clear to auscultation bilaterally Cardio regular rate, regular rhythm, S1 normal heart sound, S2 normal heart sound and no murmurs GI normal to inspection, nondistended, normoactive bowel sounds, soft to palpation, non-tender and non-distended Extremity normal to inspection, full ROM and normal capillary refill General Extremity: no tenderness to palpation of joints or extremities Skin General Skin Exam: no breakdown Neuro oriented x3, CN's II-XII intact bilaterally, moves all extremities and no focal motor deficits Sensorium / Orientation: awake and alert Motor Exam: strength 5/5 throughout and general weakness Psych thought process normal, cooperative and affect normal Appearance: appropriate Assessment & Plan Assessment/Plan (1) Acute alteration in mental status: (2) History of hypothyroidism: PLAN: Plan #Acute encephalopathy * Concern for Wernicke's encephalopathy in light of chronic alcohol abuse as well as severe hypothyroidism in light of markedly elevated TSH * has improved significantly. * CT of the brain showed small vessel ischemia. * will continue to monitor. * * #IFEANYI likely obstructive * Creatinine is trending downwards and is 4.97 today. * CT abdomen and pelvis showed severe right moderate to severe left hydroureteronephrosis without visualised obstructing calculi. * Baseline creatinine from March 2024 was 1.13. * From May creatinine has gradually gone up from 0.85 and was 4.23 on 06/26/2024. It is now 5.75. * urology consulted o/.a of hydronephrosis- per urology, to go with hawthorne catheter in situ and follow up on outpatient basis with urology. * still having hematuria. Hawthorne catheter in situ. Urology on board. * nephrology also consulted. * * #Chronic alcohol abuse with concern for withdrawal * Drinks at least 5 beers daily with last drink being a day before admission. * Started on alcohol withdrawal protocol with phenobarbital. Check serum alcohol level and do urine tox * Monitor CIWA score. On thiamine, folic acid and Multi-Violet * #Severe hypothyroidism: * TSH is 208. He is on Synthroid but it is unclear if he has been compliant with his Synthroid. * Started on IV Synthroid 100 mcg daily. Now switched to PO synthroid 200mcg daily. * Patient tells me he has been compliant with his Synthroid, though I am not sure if he has really been taking it due to his confusion. * * #Acute anemia * Hemoglobin was 11.2 on admission, down to 8.2; was 8.6 yesterday. This likely due to hematuria. * Hold heparin and transfuse if Hb is less than 7. * Urology aware of hematuria. * #History of psoriasis: On ustekinumab DVT prophylaxis: SCDs; no anticoagulation due to hematuria CODE STATUS: Full code * Charges/Coding Visit Charges Inpatient E&M: 57188 Subs Hosp L2
[2024-08-22] MEDS: 0.9% Saline Lock 10 ML Syringe IV (22:05)
[2024-08-23] MEDS: traZODone 100 MG Tablet PO (00:34)
[2024-08-23 02:37] VITALS: BP 128/80; PULSE 74; RESP 15; TEMP 37.2; O2SAT 100
[2024-08-23 03:28] VITALS: BP 128/80; PULSE 70; RESP 15; TEMP 37.2; O2SAT 97
[2024-08-23] MEDS: Phenobarbital 32.4 MG Tablet PO ×4 (03:30→21:44)
[2024-08-23 06:59] LABS: Absolute Lymphocyte Count 0.82 X10^3/uL (0.83-4.51); Absolute Neutrophil Count 5.4 X10^3/uL (2.0-7.7); Basophil# 0.04 X10^3/uL; Basophil% 0.5 % (0-1); Eosinophil# 0.99 X10^3/uL; Eosinophils% 12.2 % (0-5); Hematocrit 26.6 % (40-54); Hemoglobin 8.7 g/dL (13.0-16.5); Lymphocyte # 0.82 X10^3/ul (0.83-4.51); Lymphocyte % 10.1 % (19-41); Mean Corp Hgb Conc 32.7 g/dL (32-36); Mean Corpuscular Hgb 31.8 pg (27.0-32.0); Mean Corpuscular Volume 97.1 fL (80-94); Mean Platelet Vol. 9.7 fl (6.2-12.0); Monocyte# 0.81 X10^3/uL; NRBC Flagged by Analyzer 0 % (0-5); Neutrophil % 66.7 % (47-70); Platelet Count 300 K/mm3 (150-450); RBC Distribution Width CV 14.5 % (11.6-14.6); RBC Distribution Width SD 50.8 fl (35.1-43.9); Red Blood Count 2.74 M/mm3 (4.6-6.2); White Blood Count 8.1 K/mm3 (4.4-11.0)
[2024-08-23 07:31] LABS: Anion Gap 4 (5-15); BUN 39 mg/dL (7-18); BUN/Creat Ratio 8.4 RATIO (10-20); Calcium,Total 8.2 mg/dL (8.5-10.1); Chloride 106 mmol/L (98-107); Creatinine, Serum 4.64 mg/dL (0.70-1.30); EST Glomerular Filtration Rate 13 mL/min (>60); Est Glom Filt Rate - Afr Amer 16 mL/min (>60); Estimated Creatinine Clearance 17.33 ml/min; Glucose 82 mg/dL (74-106); Potassium 4.8 mmol/L (3.5-5.1); Sodium Level 135 mmol/L (136-145)
[2024-08-23 09:00] VITALS: BP 136/74; PULSE 74; RESP 16; TEMP 36.8; O2SAT 98
[2024-08-23] MEDS: Folic Acid 1 MG Tablet PO (10:14)
[2024-08-23] MEDS: Magnesium Chloride 64 MG Delay Rel.Tablet 128 MG PO (10:14)
[2024-08-23] MEDS: Thiamine Hydrochloride 100 MG Tablet PO (10:15)
[2024-08-23] MEDS: Pantoprazole Sodium 40 MG in 0.9% Normal Saline (100mL MB+) 100 ML 330 MG IV ×2 (10:27→21:44)
--- NOTE | 2024-08-23 11:42 | PN_ITS ---
Subjective Subjective Patient seen and examined. He had no active complaints. Review of systems otherwise negative. He is still having some hematuria. Hemoglobin is all gone up to 8.7 today from 8.2 yesterday. He has remained hemodynamically stable. Objective Data Objective Data Vital Signs: Vital Signs Temp Pulse Resp BP Pulse Ox O2 Del Method 98.3 F 74 16 136/74 H 98 Room Air 08/23/24 09:00 08/23/24 09:00 08/23/24 09:00 08/23/24 09:00 08/23/24 09:00 08/23/24 10:00 Oxygen Delivery Method Room Air Weight: 182 lb 5.156 oz Body Mass Index (BMI) 21.0 Intake & Output: Intake and Output for Last 24 Hours 08/21/24 08/22/24 08/23/24 23:59 23:59 23:59 Intake Total 1392 / 1392 1190 / 1690 500 / 500 Output Total 3275 / 3275 2450 / 3650 1200 / 1200 Balance -1883 / -1883 -1260 / -1960 -700 / -700 Lab / Micro Data 08/23/24 05:33 08/23/24 05:33 Labs: Laboratory Results - last 24 hr 08/23/24 05:33: WBC 8.1, RBC 2.74 L, Hgb 8.7 L, Hct 26.6 L, MCV 97.1 H, MCH 31.8, MCHC 32.7, RDW Std Deviation 50.8 H, RDW Coeff of Keysha 14.5, Plt Count 300, MPV 9.7, Immature Gran % (Auto) 0.500, Neut % (Auto) 66.7, Lymph % (Auto) 10.1 L , [place] % (Auto) 10.0, Eos % (Auto) 12.2 H, Baso % (Auto) 0.5, Absolute Neuts (auto) 5.4, Absolute Lymphs (auto) 0.82 L, Nucleated RBC % 0, Sodium 135 L, Potassium 4.8, Chloride 106, Carbon Dioxide 25.0, Anion Gap 4 L, BUN 39 H, C reatinine 4.64 H, Estim Creat Clear Calc 17.33, Est GFR (MDRD) Af Amer 16 L, Est GFR (MDRD) Non-Af 13 L, BUN/Creatinine Ratio 8.4 L, Glucose 82, Calcium 8.2 L Micro: Microbiology 08/21/24 18:35 Stool Stool Occult Blood (DEQUAN) - Final Physical Exam Const alert and no apparent distress Constitutional Narrative: less confused. General Appearance: cooperative Orientation / Consciousness: confused HEENT normocephalic and head/scalp atraumatic Eyes PERRL, EOMs intact bilaterally and conjunctivae normal Neck no lymphadenopathy and supple Lymph Lymphatic: no lymphadenopathy noted and no lymphedema noted Resp normal respiratory effort, normal air movement, no retractions, no use of accessory muscles and clear to auscultation bilaterally Cardio regular rate, regular rhythm, S1 normal heart sound, S2 normal heart sound and no murmurs GI normal to inspection, nondistended, normoactive bowel sounds, soft to palpation, non-tender and non-distended Extremity normal to inspection, full ROM and normal capillary refill Extremity Narrative: minimal 1+ edema of lower extremities bilaterally. General Extremity: no tenderness to palpation of joints or extremities Skin General Skin Exam: no breakdown Neuro CN's II-XII intact bilaterally, moves all extremities and no focal motor deficits Sensorium / Orientation: awake and alert Motor Exam: strength 5/5 throughout and general weakness Psych thought process normal, cooperative and affect normal Appearance: appropriate Assessment & Plan Assessment/Plan (1) Acute alteration in mental status: (2) History of hypothyroidism: PLAN: Plan #Acute encephalopathy * Concern for Wernicke's encephalopathy in light of chronic alcohol abuse as well as severe hypothyroidism in light of markedly elevated TSH * resolved * CT of the brain showed small vessel ischemia. * will continue to monitor. * on thiamine * #IFEANYI likely obstructive * Creatinine is trending downwards and is 4.64 today. * CT abdomen and pelvis showed severe right moderate to severe left hydroureteronephrosis without visualised obstructing calculi. * Baseline creatinine from March 2024 was 1.13. * From May creatinine has gradually gone up from 0.85 and was 4.23 on 06/26/2024. It is now 5.75. * urology consulted on board of hydronephrosis- per urology, to go with hawthorne catheter in situ and follow up on outpatient basis with urology. * still having hematuria. Hawthorne catheter in situ. Urology on board. * nephrology also consulted. * #Hematuria * Patient still having hematuria. Per urology this will eventually clear. Patient's blood does markedly distended and this is what is resulting in the hematuria. To irrigate Hawthorne as needed. * Follow-up with urolofy on outpatient basis. * #Chronic alcohol abuse with concern for withdrawal * Drinks at least 5 beers daily with last drink being a day before admission. * Started on alcohol withdrawal protocol with phenobarbital. Check serum alcohol level and do urine tox * Monitor CIWA score. On thiamine, folic acid and Multi-Violet * #Severe hypothyroidism: * TSH is 208. He is on Synthroid but it is unclear if he has been compliant with his Synthroid. * Started on IV Synthroid 100 mcg daily. Now switched to PO synthroid 200mcg daily. * Patient tells me he has been compliant with his Synthroid, though I am not sure if he has really been taking it due to his confusion. * * #Acute anemia * Hemoglobin was 11.2 on admission, trended down to a ty of 8.2. Hemoglobin is 8.7 today. * Hold heparin and transfuse if Hb is less than 7. * Urology aware of hematuria. * #History of psoriasis: On ustekinumab DVT prophylaxis: SCDs; no anticoagulation due to hematuria CODE STATUS: Full code Disposition: Awaiting placement. * Charges/Coding Visit Charges Inpatient E&M: 70156 Subs Hosp L2
--- NOTE | 2024-08-23 11:52 | CASEMGMT ---
Referral sent to [facility]. Janett Ivey DC Planning Asst.
[2024-08-23] MEDS: Multivitamins,Therapeutic Tablet 1 TABLET PO (12:00)
[2024-08-23 12:35] VITALS: BP 128/70; PULSE 70; RESP 18; TEMP 36.7; O2SAT 98
[2024-08-23 13:07] VITALS: BP 96/59; PULSE 73; RESP 18; TEMP 37.1; O2SAT 100
--- NOTE | 2024-08-23 14:05 | CASEMGMT ---
Social Work- SW received an email from pt daughter that pt is agreeable to inpatient ETOH treatment. SW spoke with addiction services specialist who reports that pt must be independent with hawthorne for placement. SW collaborated with pt bedside nurse who reports that she does not feel pt is independent and noted that pt also had difficulty with transfers and showed poor trunk control when she was assisting pt with shaving/grooming. SW spoke with pt who is agreeable that he does not feel that he can care for hawthorne and does understand that he has poor strength and balance. Pt is agreeable to SNF then potential ETOH inpatient following SNF. Pt bedside nurse also spoke with pt regarding SNF. Pt declined list at this time and selected [facility] as [facility]. DCA updated. SW called pt dtr to provide updates. Pt dtr states that she is agreeable to referral to [facility]. She reports that [facility] would also be an alternate choice. SW notified [facility]. Pt dtr thankful for assistance and agreeable to discharge plans as well. SW remains available to follow. Plan: [facility]; pend acceptance EDILMA Elias
[2024-08-23 18:07] LABS: Folate, RBC (Hct) Test 31.8 % (37.5-51.0); Folates, RBC Test 686 ng/mL (>498)
--- NOTE | 2024-08-23 19:06 | PN.RENAL_ITS ---
Subjective Subjective no new events Objective Data Objective Data Vital Signs: Vital Signs Temp Pulse Resp BP Pulse Ox O2 Del Method 98.8 F 73 18 96/59 L 100 Room Air 08/23/24 13:07 08/23/24 13:07 08/23/24 13:07 08/23/24 13:07 08/23/24 13:07 08/23/24 13:09 Oxygen Delivery Method Room Air Weight: 82.7 kg Body Mass Index (BMI) 21.0 Intake & Output: Intake and Output for Last 24 Hours 08/21/24 08/22/24 08/23/24 23:59 23:59 23:59 Intake Total 1392 / 1392 1190 / 1690 1860 / 1860 Output Total 3275 / 3275 2450 / 3650 1950 / 1950 Balance -1883 / -1883 -1260 / -1960 -90 / -90 Lab / Micro Data 08/23/24 05:33 08/23/24 05:33 Labs: Laboratory Results - last 24 hr 08/20/24 20:06: RBC Folate Hemolysate 218.0, RBC Folate 686, Hematocrit 31.8 L 08/23/24 05:33: WBC 8.1, RBC 2.74 L, Hgb 8.7 L, Hct 26.6 L, MCV 97.1 H, MCH 31.8, MCHC 32.7, RDW Std Deviation 50.8 H, RDW Coeff of Keysha 14.5, Plt Count 300, MPV 9.7, Immature Gran % (Auto) 0.500, Neut % (Auto) 66.7, Lymph % (Auto) 10.1 L , [place] % (Auto) 10.0, Eos % (Auto) 12.2 H, Baso % (Auto) 0.5, Absolute Neuts (auto) 5.4, Absolute Lymphs (auto) 0.82 L, Nucleated RBC % 0, Sodium 135 L, Potassium 4.8, Chloride 106, Carbon Dioxide 25.0, Anion Gap 4 L, BUN 39 H, C reatinine 4.64 H, Estim Creat Clear Calc 17.33, Est GFR (MDRD) Af Amer 16 L, Est GFR (MDRD) Non-Af 13 L, BUN/Creatinine Ratio 8.4 L, Glucose 82, Calcium 8.2 L Micro: Microbiology 08/21/24 18:35 Stool Stool Occult Blood (DEQUAN) - Final Physical Exam Narrative no obvious distress no pallor no icterus no JVD s1s2 no murmurs lungs clear abdomen soft no organomegaly no edema no cyanosis hawthorne + Assessment & Plan Assessment/Plan (1) Acute kidney injury superimposed on stage 4 chronic kidney disease: PLAN: His baseline creatinine was close to 1 as of March 2024. In May he had a creatinine of 4-5 range. I am not sure if he had any interventions done. This time he came with a creatinine more than 5. CT abdomen with bilateral hydronephrosis. Hawthorne catheter inserted, creatinine is trending down. Likely IFEANYI is obstructive. He could not give me much history otherwise. For now we will monitor creatinine with a Hawthorne indwelling. cr trending down
[2024-08-23 19:07] VITALS: BP 140/113; PULSE 76; RESP 16; TEMP 37; O2SAT 100
[2024-08-24] MEDS: traZODone 100 MG Tablet PO (01:56)
[2024-08-24] MEDS: Phenobarbital 32.4 MG Tablet PO ×3 (02:09→15:43)
[2024-08-24 02:14] VITALS: BP 110/59; PULSE 82; RESP 16; TEMP 36.8; O2SAT 98
[2024-08-24 06:41] LABS: Absolute Lymphocyte Count 0.99 X10^3/uL (0.83-4.51); Absolute Neutrophil Count 5.4 X10^3/uL (2.0-7.7); Basophil# 0.03 X10^3/uL; Basophil% 0.4 % (0-1); Eosinophil# 0.95 X10^3/uL; Eosinophils% 11.6 % (0-5); Hematocrit 25.2 % (40-54); Hemoglobin 8.1 g/dL (13.0-16.5); Lymphocyte # 0.99 X10^3/ul (0.83-4.51); Lymphocyte % 12.1 % (19-41); Mean Corp Hgb Conc 32.1 g/dL (32-36); Mean Corpuscular Hgb 31.2 pg (27.0-32.0); Mean Corpuscular Volume 96.9 fL (80-94); Mean Platelet Vol. 9.7 fl (6.2-12.0); Monocyte# 0.86 X10^3/uL; Monocyte% 10.5 % (0-10); NRBC Flagged by Analyzer 0 % (0-5); Neutrophil # 5.35 X10^3/uL (2.7-7.7); Platelet Count 283 K/mm3 (150-450); RBC Distribution Width CV 14.1 % (11.6-14.6); RBC Distribution Width SD 50.3 fl (35.1-43.9); White Blood Count 8.2 K/mm3 (4.4-11.0)
[2024-08-24 07:17] LABS: Anion Gap 6 (5-15); BUN 42 mg/dL (7-18); BUN/Creat Ratio 9.8 RATIO (10-20); Calcium,Total 8.2 mg/dL (8.5-10.1); Chloride 105 mmol/L (98-107); EST Glomerular Filtration Rate 15 mL/min (>60); Est Glom Filt Rate - Afr Amer 18 mL/min (>60); Glucose 86 mg/dL (74-106); Potassium 5.1 mmol/L (3.5-5.1); Sodium Level 135 mmol/L (136-145)
[2024-08-24] MEDS: Thiamine Hydrochloride 100 MG Tablet PO (07:38)
[2024-08-24] MEDS: Folic Acid 1 MG Tablet PO (07:38)
[2024-08-24] MEDS: Magnesium Chloride 64 MG Delay Rel.Tablet 128 MG PO (07:38)
[2024-08-24 09:07] VITALS: BP 133/94; PULSE 70; RESP 18; TEMP 36.3; O2SAT 100
[2024-08-24] MEDS: Pantoprazole Sodium 40 MG in 0.9% Normal Saline (100mL MB+) 100 ML 330 MG IV (09:32)
--- NOTE | 2024-08-24 11:09 | CASEMGMT ---
[facility] accepted patient. SW went to notify patient, but he was sleeping. CHARLY called patient's daughter Viridiana and let her know. CHARLY let her know we are just waiting on physician to let us know if patient will go today or tomorrow. Viridiana asked about transport. CHARLY explained that [facility] can set it up, but patient will get a bill for it as insurance does not cover wheelchair transport. CHARLY also explained if family feels they can transport they can. Viridiana asked that we keep her updated. Kimberlee Hu NET TECHNICAL ARCHITECT STEF
--- NOTE | 2024-08-24 11:34 | PN.RENAL_ITS ---
Subjective Subjective Sitting up in bed. No complaints. No overnight events Objective Data Objective Data Vital Signs: Vital Signs Temp Pulse Resp BP Pulse Ox O2 Del Method 97.4 F L 70 18 133/94 H 100 Room Air 08/24/24 09:07 08/24/24 09:07 08/24/24 09:07 08/24/24 09:07 08/24/24 09:07 08/24/24 09:07 Oxygen Delivery Method Room Air Weight: 82.7 kg Body Mass Index (BMI) 21.0 Intake & Output: Intake and Output for Last 24 Hours 08/22/24 08/23/24 08/24/24 23:59 23:59 23:59 Intake Total 1190 / 1690 2320 / 2320 110 / 110 Output Total 2450 / 3650 2350 / 2350 750 / 750 Balance -1260 / -1960 -30 / -30 -640 / -640 Lab / Micro Data 08/24/24 05:51 08/24/24 05:51 Labs: Laboratory Results - last 24 hr 08/20/24 20:06: RBC Folate Hemolysate 218.0, RBC Folate 686, Hematocrit 31.8 L 08/24/24 05:51: WBC 8.2, RBC 2.60 L, Hgb 8.1 L, Hct 25.2 L, MCV 96.9 H, MCH 31.2, MCHC 32.1, RDW Std Deviation 50.3 H, RDW Coeff of Keysha 14.1, Plt Count 283, MPV 9.7, Immature Gran % (Auto) 0.400, Neut % (Auto) 65.0, Lymph % (Auto) 12.1 L , [place] % (Auto) 10.5 H, Eos % (Auto) 11.6 H, Baso % (Auto) 0.4, Absolute Neuts (auto) 5.4, Absolute Lymphs (auto) 0.99, Nucleated RBC % 0, Sodium 135 L, Potassium 5.1, Chloride 105, Carbon Dioxide 24.0, Anion Gap 6, BUN 42 H, C reatinine 4.30 H, Estim Creat Clear Calc 18.70, Est GFR (MDRD) Af Amer 18 L, Est GFR (MDRD) Non-Af 15 L, BUN/Creatinine Ratio 9.8 L, Glucose 86, Calcium 8.2 L Micro: Microbiology 08/21/24 18:35 Stool Stool Occult Blood (DEQUAN) - Final Physical Exam Narrative no obvious distress s1s2 no murmurs lungs clear abdomen soft no edema hawthorne + Assessment & Plan Assessment/Plan (1) Acute kidney injury superimposed on stage 4 chronic kidney disease: PLAN: Baseline creatinine was close to 1 as of March 2024. In May he had a creatinine of 4-5 range. I am not sure if he had any interventions done. This time he came with a creatinine more than 5. CT abdomen with bilateral hydronephrosis. Hawthorne catheter inserted, creatinine is trending down. Likely IFEANYI is obstructive. Today creatinine 4.30. Urine output yesterday 2.3 L. No acute indication for PARTS COUNTER CLERK. For now we will monitor creatinine with a Hawthorne indwelling. To be discharged with hawthorne. Probable discharge today to [facility], will arrange for hospital follow-up.
[2024-08-24 11:41] VITALS: BP 95/65; PULSE 66; RESP 16; TEMP 37.2; O2SAT 98
[2024-08-24] MEDS: Multivitamins,Therapeutic Tablet 1 TABLET PO (11:43)
--- NOTE | 2024-08-24 13:50 | TREXTCAR_ITS ---
Diet Diet Order/Speech Therapy: 08/20/24 12:27 Diet: Cardiac - Heart Healthy Food consistency:: Regular Liquid Consistency:: Regular/Thin Type of Dietary Supplement:: Ensure Plus High Protein Diet Comments: 4 oz chocolate EPHP and either orange juice or cranberry juice w/ all meals Routine Orders/Code Status Enema Type: Fleetz Enema Frequency: Daily PRN Suppository Type: Dulcolax 10mg Suppository Frequency: Daily PRN DC O2, CPAP, BIPAP needs Home O2 Discharge instructions: No Wound(s) legs: Wound Type: Abrasion Therapies Weight Bearing: Weight bearing as tolerated Physical Therapy: Eval and Treat Occupational Therapy: Eval and Treat Problem/Diagnosis (1) Acute kidney injury superimposed on stage 4 chronic kidney disease: Status: Acute Code(s): N17.9 - Acute kidney failure, unspecified; N18.4 - Chronic kidney disease, stage 4 (severe) Plan #Acute encephalopathy * Concern for Wernicke's encephalopathy in light of chronic alcohol abuse as well as severe hypothyroidism in light of markedly elevated TSH * resolved * CT of the brain showed small vessel ischemia. * will continue to monitor. * on thiamine * #IFEANYI likely obstructive * Creatinine is trending downwards and is 4.64 today. * CT abdomen and pelvis showed severe right moderate to severe left hydroureteronephrosis without visualised obstructing calculi. * Baseline creatinine from March 2024 was 1.13. * From May creatinine has gradually gone up from 0.85 and was 4.23 on 06/26/2024. It is now 5.75. * urology consulted on board of hydronephrosis- per urology, to go with hawthorne catheter in situ and follow up on outpatient basis with urology. * still having hematuria. Hawthorne catheter in situ. Urology on board. * nephrology also consulted. * #Hematuria * Patient still having hematuria. Per urology this will eventually clear. Patient's blood does markedly distended and this is what is resulting in the hematuria. To irrigate Hawthorne as needed. * Follow-up with urolofy on outpatient basis. * #Chronic alcohol abuse with concern for withdrawal * Drinks at least 5 beers daily with last drink being a day before admission. * Started on alcohol withdrawal protocol with phenobarbital. Check serum alcohol level and do urine tox * Monitor CIWA score. On thiamine, folic acid and Multi-Violet * #Severe hypothyroidism: * TSH is 208. He is on Synthroid but it is unclear if he has been compliant with his Synthroid. * Started on IV Synthroid 100 mcg daily. Now switched to PO synthroid 200mcg daily. * Patient tells me he has been compliant with his Synthroid, though I am not sure if he has really been taking it due to his confusion. * * #Acute anemia * Hemoglobin was 11.2 on admission, trended down to a ty of 8.2. Hemoglobin is 8.7 today. * Hold heparin and transfuse if Hb is less than 7. * Urology aware of hematuria. * #History of psoriasis: On ustekinumab DVT prophylaxis: SCDs; no anticoagulation due to hematuria CODE STATUS: Full code Disposition: Awaiting placement. * Allergies/Procedures Done in Hospital Allergies codeine Adverse Reaction (Intermediate, Verified 03/01/24 11:06) Upset Stomach Procedures: None Type of Care/Length of Stay Estimated LOS: Convalescent Care Less Than 30 days Type of Care Needed: Skilled Rehab Potential: Fair Prognosis: Fair Additional Orders/Day of Discharge Day of Discharge: 08/24/24 Dietary and Speech Recommendations Dietitian Recommendations/Changes: Continue Cardiac diet as ordered Will provide 4 oz chocolate ensure plus high protein tid w/ meals and orange juice or cranberry juice w/ all meals per pt request. Follow Up Care Please Follow Up With: Ken Torres MD Discharge Plan Admission Admit Date/Time: 08/20/24 10:52 Primary Reason for Your Visit: urine retention, hematuria, acute encephalopathy Attending Provider: Annelise Ramirez Primary Care Provider: Hebert Whaley Consulting Providers: Ken Torres; Jodi Frausto Instructions Patient Instructions: What is Hematuria?, Hematuria: Possible Causes Discharge Orders/Prescriptions Prescriptions: New ferrous sulfate 324 mg (65 mg iron) tablet,delayed release (DR/EC) 324 mg PO BID Qty: 60 2RF tamsulosin [Flomax] 0.4 mg capsule 0.4 mg PO DAILY Qty: 30 2RF levothyroxine [Synthroid] 200 mcg tablet 200 mcg PO DAILY Qty: 30 2RF Continued multivitamin [Multiple Vitamins] 1 EACH tablet 1 ea PO DAILY ustekinumab 90 MG/ML syringe 90 mg subcut UD Rx Instructions: every 3 months albuterol sulfate 1 INHALER inhaler 1 - 2 puff inhalation Q4H PRN PRN (Reason: Wheezing) Qty: 1 0RF magnesium oxide 400 mg (241.3 mg magnesium) tablet 400 mg PO DAILY Qty: 30 0RF betamethasone, augmented 0.05 % cream 1 applic topical BID PRN meclizine 25 mg tablet,chewable 25 mg PO TID PRN Discontinued aspirin 81 MG tablet,chewable 81 mg PO DAILY levothyroxine 150 mcg tablet 150 mcg PO DAILY Referrals / Follow Up: Ken Torres MD [Med Staff - Active Staff] - Within 2 Weeks (follow up for hematuria) Hebert Whaley MD [Primary Care Provider] - Within 1 Week Disposition Disposition (needs filled in before D/C Order can be placed): Intermediate Facility
--- NOTE | 2024-08-24 13:51 | DS.PCM_ITS ---
Providers Date of Admission: 08/20/24 Date of Discharge: 08/24/24 Primary Care Physician: Dr. Hebert Whaley MD Consultations 08/21/24 07:35 Consult: Urology Routine Consulting Provider: Ken Torres Reason for Consult: severe hydronephrosis EMERGENT Consult: No Notified: Yes Date Notified: 08/21/24 Time Notified: 07:36 Method of Notification: Text 08/22/24 07:34 Consult: Nephrology Routine Consulting Provider: Jodi Frausto Reason for Consult: IFEANYI due to obstructive uropathy EMERGENT Consult: No Notified: Yes Date Notified: 08/22/24 Time Notified: 07:34 Method of Notification: Text Reason For Visit: IFEANYI ON CKD, ACUTE ENCEPHALOPATHY Diagnosis Discharge Diagnosis (1) Acute kidney injury superimposed on stage 4 chronic kidney disease: Status: Acute Code(s): N17.9 - Acute kidney failure, unspecified; N18.4 - Chronic kidney disease, stage 4 (severe) Plan #Acute encephalopathy * Concern for Wernicke's encephalopathy in light of chronic alcohol abuse as well as severe hypothyroidism in light of markedly elevated TSH * resolved * CT of the brain showed small vessel ischemia. * will continue to monitor. * on thiamine * #IFEANYI likely obstructive * Creatinine is trending downwards and is 4.64 today. * CT abdomen and pelvis showed severe right moderate to severe left hydroureteronephrosis without visualised obstructing calculi. * Baseline creatinine from March 2024 was 1.13. * From May creatinine has gradually gone up from 0.85 and was 4.23 on 06/26/2024. It is now 5.75. * urology consulted on board of hydronephrosis- per urology, to go with hawthorne catheter in situ and follow up on outpatient basis with urology. * still having hematuria. Hawthorne catheter in situ. Urology on board. * nephrology also consulted. * #Hematuria * Patient still having hematuria. Per urology this will eventually clear. Patient's blood does markedly distended and this is what is resulting in the hematuria. To irrigate Hawthorne as needed. * Follow-up with urolofy on outpatient basis. * #Chronic alcohol abuse with concern for withdrawal * Drinks at least 5 beers daily with last drink being a day before admission. * Started on alcohol withdrawal protocol with phenobarbital. Check serum alcohol level and do urine tox * Monitor CIWA score. On thiamine, folic acid and Multi-Violet * #Severe hypothyroidism: * TSH is 208. He is on Synthroid but it is unclear if he has been compliant with his Synthroid. * Started on IV Synthroid 100 mcg daily. Now switched to PO synthroid 200mcg daily. * Patient tells me he has been compliant with his Synthroid, though I am not sure if he has really been taking it due to his confusion. * * #Acute anemia * Hemoglobin was 11.2 on admission, trended down to a ty of 8.2. Hemoglobin is 8.7 today. * Hold heparin and transfuse if Hb is less than 7. * Urology aware of hematuria. * #History of psoriasis: On ustekinumab DVT prophylaxis: SCDs; no anticoagulation due to hematuria CODE STATUS: Full code Disposition: Awaiting placement. * Medications at Discharge Home Medications multivitamin (Multiple Vitamins tablet) 1 ea PO DAILY SUPPLEMENT 08/21/18 albuterol sulfate 90 mcg/actuation aerosol inhaler 1 - 2 puff inhalation Q4H PRN PRN Wheezing ##1 12/11/19 ustekinumab 90 mg/mL subcutaneous syringe 90 mg subcut UD PSORIASIS 12/11/19 magnesium oxide 400 mg (241.3 mg magnesium) tablet 400 mg PO DAILY #30 tabs 03/03/24 betamethasone, augmented 0.05 % topical cream 1 applic topical BID PRN itch 08/20/24 meclizine 25 mg chewable tablet 25 mg PO TID PRN dizziness 08/20/24 ferrous sulfate 324 mg (65 mg iron) tablet,delayed release 324 mg PO BID #60 tabs 08/24/24 levothyroxine 200 mcg tablet (Synthroid) 200 mcg PO DAILY #30 tabs 08/24/24 tamsulosin 0.4 mg capsule (Flomax) 0.4 mg PO DAILY #30 caps 08/24/24 Hospital Course Operations None Procedures None Summary of Care Provided Minutes Spent on Discharge: 45 Hospital Course: ELROY CARLSON, is a 68 M with a PMH as outlined who presents via the ED on 08/20/2024 with a complaint of confusion. He was found by hte EMS confused, sitting in a chair. He apparently went to his neighbor's house between 4-5am on the day of admission asking for water as he was thirsty. Patient however said he was fine and did not know why he was even in the hospital. His son was by him and stated that patient had been quite confused of late. Patient denied any fever, any chills, any nausea or any vomiting or any other symptoms. Patient said he drank about 5 beers daily with his last drink being the day before admission. He also vapes occasionally but denies any recreational drug use. Review of systems otherwise negative within the limits of patient's answers due to his confusion. Vitals in the ED were BP of 170/100., WV of 74, RR of 14 and temp of 98F. He was saturating at 94% on room air. CBC showed Hb of 11.2, wbc of 8.3 and platelets of 375. Chemistry showed sodium of 131, potassium of 5.1 and Cr of 5.75. Urinalysis showed no evidence of UTI. Blood glucose level was 74. CT brain showed evidence of small vessel ischemic changes and no intracranial hemorrhage, midline shift or mass effect. He was admitted to be managed for IFEANYI on CKD and acute encephalopathy. His TSH was found to markedly elevated at 2 4 and was okay with that he had really been compliant with his Synthroid at home in light of his underlying confusion. He was started on alcohol withdrawal protocol also on account of history of chronic alcohol abuse and concern about whether this could be contributing to his encephalopathy. He was initially started on IV Synthroid. MRI of the brain showed no acute intracranial pathology. He had vitamin B12 and folate level check which were normal. On account of his elevated creatinine CT of the abdomen and pelvis was done which showed moderate to severe left-sided hydroureteronephrosis and severe right hydroureteronephrosis without visualized calculi and bladder was also noted to be distended. He had Hawthorne catheter inserted and had subsequent hematuria on account of this. Per urology because his bladder had been distended for a long while, this was likely the cause of the hematuria. Urology expected the hematuria to clear up and for patient to be discharged with Hawthorne catheter in situ and follow-up on outpatient basis. Hemoglobin dropped from around 11 to a ty of around 8.2 during admission and this was thought to be due to the hematuria. Iron profile done showed low iron levels of 41 but iron saturation was within normal limits and ferritin was also within normal limits. Patient's confusion improved and he was put on Synthroid p.o. 200 mcg daily. He was skilled to go to a assisted. [facility] was [facility] to [facility] on 08/[facility]/2024. Of note, nephrology was also consulted and felt the IFEANYI on CKD stage IV was likely due to the obstructive uropathy from the distended bladder. He was discharged on p.o. Flomax also and is to follow-up with his primary care doctor and follow-up with urology and nephrology within 1 to 2 weeks. Patient seen and examined prior to discharge. He felt well and was eager to be discharged. He had no active complaints. Review of systems otherwise negative. Labs and vitals reviewed. Home medication reviewed and reconciled. Physical Exam Const alert, oriented x3 and no apparent distress General Appearance: cooperative Orientation / Consciousness: awake and confused HEENT normocephalic, head/scalp atraumatic, hearing grossly normal bilaterally and moist oral mucous membranes Mouth: oral and palatal mucosa normal Eyes PERRL, EOMs intact bilaterally and conjunctivae normal Neck no lymphadenopathy and supple Lymph Lymphatic: no lymphadenopathy noted and no lymphedema noted Resp normal respiratory effort, normal air movement, no retractions, no use of accessory muscles and clear to auscultation bilaterally Cardio regular rate, regular rhythm, S1 normal heart sound, S2 normal heart sound and no murmurs GI normal to inspection, nondistended, normoactive bowel sounds, soft to palpation, non-tender and non-distended Extremity normal to inspection, full ROM and normal capillary refill Extremity Narrative: minimal 1+ edema of lower extremities bilaterally. General Extremity: no tenderness to palpation of joints or extremities Skin no rashes or lesions noted General Skin Exam: no breakdown Neuro oriented x3, CN's II-XII intact bilaterally, moves all extremities and no focal motor deficits Sensorium / Orientation: awake and alert Motor Exam: strength 5/5 throughout and general weakness Psych thought process normal, cooperative and affect normal Appearance: appropriate Weight / BMI Weight Weight: 182 lb 5.156 oz Body Mass Index (BMI) 21.0 ABG / Lab / Microbiology Data 08/24/24 05:51 08/24/24 05:51 Laboratory: Laboratory Results - last 24 hr 08/20/24 20:06: RBC Folate Hemolysate 218.0, RBC Folate 686, Hematocrit 31.8 L 08/24/24 05:51: WBC 8.2, RBC 2.60 L, Hgb 8.1 L, Hct 25.2 L, MCV 96.9 H, MCH 31.2, MCHC 32.1, RDW Std Deviation 50.3 H, RDW Coeff of Keysha 14.1, Plt Count 283, MPV 9.7, Immature Gran % (Auto) 0.400, Neut % (Auto) 65.0, Lymph % (Auto) 12.1 L , [place] % (Auto) 10.5 H, Eos % (Auto) 11.6 H, Baso % (Auto) 0.4, Absolute Neuts (auto) 5.4, Absolute Lymphs (auto) 0.99, Nucleated RBC % 0, Sodium 135 L, Potassium 5.1, Chloride 105, Carbon Dioxide 24.0, Anion Gap 6, BUN 42 H, C reatinine 4.30 H, Estim Creat Clear Calc 18.70, Est GFR (MDRD) Af Amer 18 L, Est GFR (MDRD) Non-Af 15 L, BUN/Creatinine Ratio 9.8 L, Glucose 86, Calcium 8.2 L Microbiology: Microbiology 08/21/24 18:35 Stool Stool Occult Blood (DEQUAN) - Final D/C Instructions Discharge Diet: Low fat / Low cholesterol Discharge Activity: Return to Normal Activity Weight Bearing Status: Weight bearing as tolerated Call your doctor if you observe: Fever of 101 or Higher, Shortness of breath, Dizziness, Swelling in the ankles and Chest pain Catheter: Hawthorne to leg bag and Hawthorne to large bag Drain: [place] DC O2, CPAP, BIPAP Needs Home O2 Discharge instructions: No Please Follow Up With: Ken Torres MD When: Call [phone] for an appointment Meaningful Use Info Meaningful Use Meaningful Use Diagnoses (Choose all that apply): None applicable Ischemic Stroke Statin Dosing Therapy Reference: STATIN DOSE THERAPY REFERENCE: * Patients > 75 years receive moderate or high dose statin therapy. * Patients 75 years or YOUNGER should receive HIGH intensity statin dose unless contraindicated. You will be required to document reason for non-treatment if statin daily dose does not meet guidelines. HIGH DOSE STATIN THERAPY DAILY Atorvastatin > than or = to 40 mg Rosuvastatin > than or = to 20 mg Amlodipine + Atorvastatin > than or = to 2.5/40 mg Ezetimibe + Simvastatin 10/80 mg Simvastatin 80mg Discharge Plan Admission Admit Date/Time: 08/20/24 10:52 Primary Reason for Your Visit: urine retention, hematuria, acute encephalopathy Attending Provider: Annelise Ramirez Primary Care Provider: Hebert Whaley Consulting Providers: Ken Torres; Jodi Frausto Instructions Patient Instructions: What is Hematuria?, Hematuria: Possible Causes Discharge Orders/Prescriptions Prescriptions: New ferrous sulfate 324 mg (65 mg iron) tablet,delayed release (DR/EC) 324 mg PO BID Qty: 60 2RF tamsulosin [Flomax] 0.4 mg capsule 0.4 mg PO DAILY Qty: 30 2RF levothyroxine [Synthroid] 200 mcg tablet 200 mcg PO DAILY Qty: 30 2RF Continued multivitamin [Multiple Vitamins] 1 EACH tablet 1 ea PO DAILY ustekinumab 90 MG/ML syringe 90 mg subcut UD Rx Instructions: every 3 months albuterol sulfate 1 INHALER inhaler 1 - 2 puff inhalation Q4H PRN PRN (Reason: Wheezing) Qty: 1 0RF magnesium oxide 400 mg (241.3 mg magnesium) tablet 400 mg PO DAILY Qty: 30 0RF betamethasone, augmented 0.05 % cream 1 applic topical BID PRN meclizine 25 mg tablet,chewable 25 mg PO TID PRN Discontinued aspirin 81 MG tablet,chewable 81 mg PO DAILY levothyroxine 150 mcg tablet 150 mcg PO DAILY Referrals / Follow Up: Ken Torres MD [Med Staff - Active Staff] - Within 2 Weeks (follow up for hematuria) Hebert Whaley MD [Primary Care Provider] - Within 1 Week Disposition Disposition (needs filled in before D/C Order can be placed): Assisted Facility Charges/Coding Visit Charges Inpatient E&M: 92221 Disch Hosp >30min
[2024-08-24 14:21] VITALS: BP 122/77; PULSE 67; RESP 18; TEMP 36.6; O2SAT 100
[2024-08-24 14:45] VITALS: O2SAT 100
--- NOTE | 2024-08-24 14:47 | CASEMGMT ---
Patient is ready for discharge to [facility]. SW completed a 7000 in HENS. Plan: d/c to [facility] under skilled level of care on a convalescent stay. Physicians will transport patient via wheelchair. Kimberlee FINCH
--- NOTE | 2024-08-24 15:34 | CASEMGMT ---
Discharge orders, signed med list, and transport time sent to [facility]. Physicians will transport pt by wheelchair at 5p. Nursing, SW, pt and his daughter (Viridiana) updated. NADINE Anand
--- NOTE | 2024-08-24 15:36 | CASEMGMT ---
Discharge orders, signed med list, and transport time sent [facility]. Physicians will transport pt by wheelchair at 5p. Nursing, SW, pt, and his daughter (Viridiana) updated. Janett Ivey DC Planning Asst.
== END 2024-08-24 19:29 | disposition skilled nursing facility (03) | DRG 699 ==
LOC: ED 10:57 → MS3 11:12
PROVIDERS: Admitting Provider Student in an Organized Health Care Education/Training Program; Emergency Provider Emergency Medicine; PCP Family Medicine; Visit Provider Student in an Organized Health Care Education/Training Program
DX: N13.9 Obstructive and reflux uropathy, unspecified (principal); N17.9 Acute kidney failure, unspecified; G93.40 Encephalopathy, unspecified; N18.4 Chronic kidney disease, stage 4 (severe); E87.1 Hypo-osmolality and hyponatremia; K74.60 Unspecified cirrhosis of liver; D63.1 Anemia in chronic kidney disease; E03.9 Hypothyroidism, unspecified; I12.9 Hypertensive chronic kidney disease with stage 1 through stage 4 chronic kidney disease, or unspecified chronic kidney disease; R63.4 Abnormal weight loss; F17.290 Nicotine dependence, other tobacco product, uncomplicated; L40.9 Psoriasis, unspecified; N13.8 Other obstructive and reflux uropathy; Z79.890 Hormone replacement therapy; R31.9 Hematuria, unspecified; Z68.21 Body mass index [BMI] 21.0-21.9, adult
CPT/HCPCS: 36415; 70450; 71046; 74176; 80048; 80053; 80076; 80307; 81001; 82274; 82607; 82728; 82747; 82962; 83540; 83550; 84153; 84439; 84443; 84481; 85014; 85025; 85652; 86780; 94640; 97110; 97116; 97162; 97166; 97530; 97535; 97802; 99285; 99406; A4216